=== PATIENT | female | born 1960 | race Caucasian/White ===

== ENCOUNTER 2016-04-09 06:54 | Day surgery (SDC) | payer BC ==
[2016-04-07 11:59] VITALS: BMI 43.2
[~2016-04-09 06:54] MED LIST: LACTATED RINGERS 1,000 ML IV SCH
[2016-04-09] MEDS ORDERED: LIDOCAINE 1% 20 ML VIAL (10MG/ML) FOR IV START INTRADERMA ONE (07:25)
[2016-04-09 07:26] VITALS: RESP 18; TEMP 98.1
[2016-04-09] MEDS ORDERED: DEXAMETHASONE SOD PHOS (MDV) 100 MG/10 ML VIAL ONE (08:19)
[2016-04-09] MEDS ORDERED: BUPIVACAINE (PF) 0.5% 30 ML VIAL ONE (08:19)
[2016-04-09] MEDS ORDERED: fentaNYL (PF) 50 MCG/ML 2 ML AMP ONE (08:19)
[2016-04-09] MEDS ORDERED: MIDAZOLAM 2 MG/2 ML VIAL ONE (08:19)
--- NOTE | 2016-04-09 08:54 | P.PCN ---
Date of Procedure: 04/09/16 Procedure(s) Performed: PREOPERATIVE DIAGNOSIS: 1-Cervical spondylosis with Facet Arthropathy without myelopathy. 2-cervical degenerative disc disease POSTOPERATIVE DIAGNOSIS:1- Cervical spondylosis with Facet Arthropathy without myelopathy. 2-cervical degenerative disc disease PROCEDURES: Radiofrequency thermocoagulation, left C3, C4, C5, medial branch with Fluroscopy [place] ANESTHESIA: Local with 1% lidocaine3 ml IV sedation with fentanyl 100 mcg and Versed. 4 mg EBL: Minimal PROCEDURE INDICATION: The patient with neck pain secondary to cervical arthropathy who had more than 50% relief of her pain with previous diagnostic cervical medial branch block. PROCEDURE DESCRIPTION / TECHNIQUE: The patient was seen and identified in the preoperative area. Risks, benefits, complications, and alternatives were discussed with the patient, the patient agreed to proceed with the procedure and signed the consent. IV was started. Vital signs remained stable throughout the procedure. Patient was taken to the OR and time out was completed. The patient was placed in the prone position on the procedure table. A pillow was placed under the patients chest to increase the cervical interlaminar space. The cervical area was prepped and draped in the usual sterile fashion. Critical pause was taken. Vital signs were closely monitored during the procedure. Conscious sedation was used during the procedure to decrease patients anxiety. Using cross-table lateral fluoroscopy, the centroid of the trapezoid of left C3 , C4, C5, were identified, marked, and localized with 1% lidocaine. Subsequently, a 20 -pm radiofrequency cannula with a 10-mm active tip was advanced guided by fluoroscopy to the centroid of the trapezoid of left C3 , C4, C5, . Needle tip position was confirmed at the centroid of the trapezoids of left C3, C4, C5 with anteroposterior fluoroscopy. Each site then underwent sensory testing at 50 Hz and 0 to 1 volt and motor testing at 2 Hz and 0 to 3 volt with local stimulation, but no radicular symptoms down the arm. Thereafter C3, C4,C5 and C6 sites underwent radiofrequency thermocoagulation at 80 degrees celsius for 90 seconds after injecting 0.5 ml of PF lidocaine 1%. After thermocoagulation, 1 ml of the block solution containing dexamethasone 10 mg and 5 mL of preservative-free Marcaine 0.5% was injected at the left C3, C4, C5, levels after negative aspiration of CSF and blood and with no paresthesias. Cannulas were retracted while injecting lidocaine 1% until the needle is out. Skin was cleansed and bandages were applied. COMPLICATIONS: No acute complications. COMMENTS: DISPOSITION / PLANS: The patient was placed in a supine position and transferred to the recovery area in a stable condition for observation and was discharged from the recovery room after meeting discharge criteria. Home discharge instructions given to the patient by the staff. The patient was reexamined prior to discharge. The patient will schedule a follow up in the clinic in 2-4 weeks.
[2016-04-09 09:28] VITALS: BP 108/58; PULSE 83
[2016-04-09] MEDS ORDERED: IV FLUID CONTINUATION 1,000 ML IV ONE (09:34)
--- NOTE | 2016-04-09 09:57 | FL ---
EXAMINATION TYPE: FL guided pain mgmt statistic DATE OF EXAM: 04/09/2016 8:50 AM HISTORY: Pain Fluoroscopy support supplied to the referring clinician. Intraoperative C-arm image documents the pro cedure. See dictated report from anesthesia, 17 seconds fluoroscopy time supplied
--- NOTE | 2016-04-29 09:39 | CDI ---
Pt Name: Chelsey Abraham CONFIDENTIAL MR#: [id number] Adm Date: 04/09/2016 6:54:00 AM Printed:04/29/2016 Physician Documentation Request Page 1 of 2 ICD-10-CM Ready Physicians Documentation Request Procedure performed radiofrequency thermocoagulation the left side C 3/ C4/ C5 under fluoroscopy guidance, a total of 3 levels performed Patient: Chelsey Abraham EPI: [id number] Account: [id number] Payer: [facility] Facility: [facility] Location: - Admit Date: 04/09/2016 6:54:00 AM Query Send By: Janet Oakley Phone #: Ext. Communication Date: 04/29/2016 9:29:00 AM Clarification Outpatient By submitting this query, we are merely seeking further clarification of documentation to accurately reflect all conditions that you are monitoring, evaluating, treating or that extend the hospitalization or utilize additional resources of care. Please utilize your independent clinical judgment when addressing the question(s) below. Dear Doctor Jose Licea, The patients Clinical Indicators include: SEE BELOW Documentation Clarification OP Dear. Dr. Licea, Please clarify the exact levels where this procedure was performed. In the title "Procedures" you state Radiofrequency Thermocoagulation, Left C3, C4 and C5. In the second paragraph of the report under Procedure Description it is stated that the procedure was performed on C3, C4, C5 and C6. PLEASE DOCUMENT CLARIFICATION AN ADDENDUM TO THE OPERATIVE REPORT. Thank you for your time, Janet Oakley, [facility] Outpatient Sales Project Coordinator [email or web address] PLEASE DOCUMENT ANY ADDITIONAL DIAGNOSES AND/OR SPECIFICITY IN THE PROGRESS NOTES AND/OR DISCHARGE SUMMARY. Agreed & documented Unable to determine/unknown Disagree with the above request Need to discuss MTDD
--- NOTE | 2016-05-06 13:25 | CDI ---
Dear. Dr. Licea, Thank you for your quick response to my query below. Unfortunately, the clarification needs to be documented as an addendum to the Procedure /OR report. I cannot code from documentation within the query itself only the chart documents. Thank you again for your time, Please clarify the exact levels where this procedure was performed. In the title "Procedures" you state Radiofrequency Thermocoagulation, Left C3, C4 and C5. In the second paragraph of the report unt Procedure Description it is stated that the procedure was performed on C3, C4, C5 and C6. PLEASE DOCUMENT CLARIFICATION AN ADDENDEUM TO THE OPERATIVE REPORT. Janet Oakley, [facility] Outpatient life sciences teacher [email or web address]
--- NOTE | 2016-05-07 13:42 | P.PN ---
Progress Note - Text Addendum to the procedure done in 04/09/2016= the procedure that was done this radiofrequency thermal coagulation on the left side cervical medial branch at C3 / C4/ C5 levels, (under fluoroscopy guidance ), total of 3 levels was performed
== END 2016-04-09 09:48 | disposition home or self-care (01) ==
LOC: ORPAIN 06:54
PROVIDERS: ATTEND Specialist
DX: M47.812 Spondylosis without myelopathy or radiculopathy, cervical region (principal); M50.30 Other cervical disc degeneration, unspecified cervical region; Z88.0 Allergy status to penicillin; Z88.2 Allergy status to sulfonamides; Z88.8 Allergy status to other drugs, medicaments and biological substances; Z91.041 Radiographic dye allergy status
CPT/HCPCS: 64633; 64634 ×2; J2250; J3010; J1100

== ENCOUNTER 2016-05-27 06:54 | Day surgery (SDC) | payer BC ==
[2016-05-25 11:51] VITALS: BMI 42.5
[2016-05-27 07:24] VITALS: RESP 16; TEMP 97.5
[2016-05-27] MEDS ORDERED: LACTATED RINGERS 1,000 ML IV SCH (07:45)
[2016-05-27] MEDS ORDERED: LIDOCAINE 1% 20 ML VIAL (10MG/ML) FOR IV START INTRADERMA ONE (08:03)
[2016-05-27] MEDS ORDERED: MIDAZOLAM 2 MG/2 ML VIAL ONE (08:08)
[2016-05-27] MEDS ORDERED: fentaNYL (PF) 50 MCG/ML 2 ML AMP ONE (08:08)
[2016-05-27] MEDS ORDERED: IV FLUID CONTINUATION 1,000 ML IV ONE (08:55)
--- NOTE | 2016-05-27 09:06 | P.PCN ---
Date of Procedure: 05/27/16 Surgeon: Yonatan Quiñonez Pathology: none sent Condition: stable Disposition: PACU Description of Procedure: PREOPERATIVE DIAGNOSIS: Cervical spondylosis without myelopathy and facet arthropathy. POSTOPERATIVE DIAGNOSIS: Cervical spondylosis without myelopathy and facet arthropathy. PROCEDURES: Radiofrequency thermocoagulation, C3-C4, C4-C5, C5-C6 medial branch , with fluoroscopic guidance, right side. ANESTHESIA: Local with 1% lidocaine; conscious sedation EBL: Minimal PROCEDURE INDICATION: The patient with neck pain secondary to cervical arthropathy who had more than 50% relief of her pain with previous diagnostic cervical medial branch block. No use of blood thinners. Patient has had right cervical RFA done already with relief. PROCEDURE DESCRIPTION / TECHNIQUE: The patient was seen and identified in the preoperative area. Risks, benefits, complications, and alternatives were discussed with the patient (with risks including but not limited to bleeding, infection, nerve damage, incomplete pain relief, and allergic reactions to medications), the patient agreed to proceed with the procedure and signed the informed consent after all questions were answered. IV was started. Vital signs remained stable throughout the procedure. Patient was taken to the OR and time out was completed. The patient was placed in the prone position on the procedure table. A pillow was placed under the patients chest to increase the cervical interlaminar space. The cervical area was prepped and draped in the usual sterile fashion. Critical pause was taken. Vital signs were closely monitored during the procedure. Conscious sedation was used during the procedure to decrease patients anxiety. Using cross-table lateral fluoroscopy, the centroid of the trapezoid of C3, C4, C5, C6 were identified, marked, and localized with 1% lidocaine. Subsequently , a 20 gauge 100-mm radiofrequency cannula with a 5-mm active tip was advanced guided by fluoroscopy to the centroid of the trapezoid of C3, C4, and C5. Needle tip position was confirmed at the centroid of the trapezoids of C3, C4, and C5 with anteroposterior fluoroscopy. Each site then underwent sensory testing at 50 Hz and 0 to 1 volt and motor testing at 2 Hz and 0 to 3 volt with local stimulation, but no radicular symptoms down the arm. Thereafter C3, C4, and C5 sites underwent radiofrequency thermocoagulation at 80 degrees celsius for 90 seconds after injecting 0.5 ml of PF lidocaine 1%. After thermocoagulation, 1 ml of the block solution containing Kenalog 40 mg and 2 mL of preservative-free normal saline was injected at the C3, C4, and C5 levels after negative aspiration of CSF and blood and with no paresthesias. Cannulas were retracted while injecting lidocaine 1% until the needle is out. Skin was cleansed and bandages were applied. COMPLICATIONS: No acute complications. COMMENTS: DISPOSITION / PLANS: The patient was placed in a supine position and transferred to the recovery area in a stable condition for observation and was discharged from the recovery room after meeting discharge criteria. Home discharge instructions given to the patient by the staff. The patient was reexamined prior to discharge and there were no issues. The patient will schedule a follow up in the clinic in approximately 4 weeks.
[2016-05-27 09:27] VITALS: BP 117/59; PULSE 85
--- NOTE | 2016-05-27 10:00 | FL ---
Fluoroscopy HISTORY: Pain 38 seconds fluoroscopy time supplied to the referring clinician. 2 intraoperative C-arm images docum ent the procedure. See dictated report from anesthesia.
== END 2016-05-27 09:41 | disposition home or self-care (01) ==
LOC: ORPAIN 06:54
PROVIDERS: ATTEND Anesthesiology
DX: G89.29 Other chronic pain (principal); M47.812 Spondylosis without myelopathy or radiculopathy, cervical region; M46.92 Unspecified inflammatory spondylopathy, cervical region; I10 Essential (primary) hypertension; E78.5 Hyperlipidemia, unspecified; F90.9 Attention-deficit hyperactivity disorder, unspecified type; F41.9 Anxiety disorder, unspecified; K21.9 Gastro-esophageal reflux disease without esophagitis
CPT/HCPCS: 64633; 64634 ×2; 99152; 99153; J2250; J3010

== ENCOUNTER → 2016-06-23 | Outpatient (CLI) | payer BC ==
[2016-06-23 14:24] VITALS: BP 156/82; PULSE 100; RESP 16; TEMP 98.5
--- NOTE | 2016-06-23 15:03 | P.CONS ---
History of Present Illness - Reason for Consult Consult date: 06/23/16 - Chief Complaint Low back pain radiating into both legs - History of Present Illness This pleasant 55-year-old female returns today to the [place] pain clinic for evaluation possible therapeutic intervention with regards to her chronic pain related complaints. She is interviewed and examined and the chart is reviewed in full with the patient's full consent. Mrs. Abraham'ellis most recently was treated here at [facility] for a series of cervical related injections ultimately resulting in radiofrequency rhizotomy of her cervical facet injections bilaterally. This injections did provide her with a significant amount of therapeutic benefit and she is quite pleased with the progress of her neck pain as far. She still continues to suffer from some degree of low back pain with radiation into both her legs, this is markedly worsened by prolonged periods of standing or walking. It was at this time I had a long and detailed discussion with Mrs. Abraham regarding a variety of therapeutic options available to her. I do believe that much of her low back symptomatology is due to degenerative disc disease and multiple level spinal stenosis. In this regard I do feel that a caudal epidural injection with fluoroscopic assistance would provide her with the greatest chance for therapeutic benefit. This procedure was described to her in great detail including a thorough expiration of all possible risks Occasions as well as the potential for significant therapeutic benefit. Both her and her were advised that no guarantees can be off with any type of treatment plan but I do feel this to be an appropriate and prudent next step in her treatment algorithm. 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, STATES ELEVATED LIVER ENZYMES DR JASMIN MESSER,CHRONIC PAIN History of Any Multi-Drug Resistant Organisms: None Reported Past Surgical History: Bariatric Surgery, Hernia Repair, Orthopedic Surgery, Tubal Ligation Additional Past Surgical History / Comment(s): gastric bypass, arthroscopic surgery bilateral knees with lateral ligament releases, umbilical hernia repair with mesh, PAIN CLINIC PROCEDURES Past Anesthesia/Blood Transfusion Reactions: Motion Sickness, Postoperative Nausea & Vomiting (PONV) Past Psychological History: Anxiety, Depression Smoking Status: Never smoker Past Alcohol Use History: Occasional Additional Past Alcohol Use History / Comment(s): States is not drinking alcohol on a daily basis at this time. Past Drug Use History: None Reported - Past Family History Mother Family Medical History: Cancer Additional Family Medical History / Comment(s): BOWEL AND LIVER, ARTHROSCLEROSIS TO CAROTID Medications and Allergies Home Medications Medication Instructions Recorded Confirmed Type Ascorbic Acid [Vitamin C] 500 mg PO BID 08/23/14 06/23/16 History Baclofen [Lioresal] 20 mg PO TID PRN 08/23/14 06/23/16 History Ca/D3/Mag/Zinc/Linette/Brad/Mgbor 1 each PO DAILY 08/23/14 06/23/16 History [Caltrate 600+D3+Min Chew Tab] Cetirizine HCl [Zyrtec] 10 mg PO DAILY 08/23/14 06/23/16 History Lisinopril [Zestril] 40 mg PO DAILY 08/23/14 06/23/16 History Methylphenidate HCl [Concerta] 54 mg PO DAILY 08/23/14 06/23/16 History Naproxen Sodium [Aleve] 440 mg PO Q12HR 08/23/14 06/23/16 History Omeprazole [PriLOSEC] 20 mg PO DAILY 08/23/14 06/23/16 History Vit No.124/Iron/FA 1 each PO DAILY 08/23/14 06/23/16 History [ Vitamin Tablet] Psyllium Husk 100% [Metamucil] 5 cap PO BID 08/23/14 06/23/16 History Zolpidem [Ambien] 10 mg PO HS 05/28/15 06/23/16 History amLODIPine [Norvasc] 5 mg PO DAILY 05/28/15 06/23/16 History Ipratropium/Albuterol Sulfate 1 puff INHALATION DAILY PRN 12/09/15 06/23/16 History [Combivent Respimat Inhaler] LORazepam [Ativan] 1 mg PO BID PRN 02/24/16 06/23/16 History L.acidoph,Paracasei, B.lactis 1 each PO DAILY 03/10/16 06/23/16 History [Probiotic] DULoxetine HCL [Cymbalta] 40 mg PO DAILY 06/23/16 06/23/16 History Allergies Allergy/AdvReac Type Severity Reaction Status Date / Time fluoxetine HCl [From Prozac] Allergy Nausea Verified 06/23/16 13:53 metoclopramide HCl Allergy dystonic Verified 06/23/16 13:53 [From Reglan] reaction, UNABLE TO FOCUS Penicillins Allergy Rash/Hives Verified 06/23/16 13:53 Sulfa (Sulfonamide Allergy Rash/Hives Verified 06/23/16 13:53 Antibiotics) atomoxetine HCl AdvReac Severe Dyspnea Verified 06/23/16 13:53 [From Strattera] IVP dye Allergy Rash/Hives Uncoded 06/23/16 13:53 Physical Exam Osteopathic Statement: *. No significant issues noted on an osteopathic structural exam other than those noted in the History and Physical/Consult. Vitals: Vital Signs Temp Pulse Resp BP Pulse Ox 06/23/16 14:11 98.5 F 100 16 156/82 97 Intake and Output 06/23/16 06/23/16 06/23/16 06:59 14:59 22:59 Other: Weight 108.862 kg Patient Weight 06/24/16 06:59 Weight 108.862 kg
== END | disposition home or self-care (01) ==
LOC: PNWHC3 13:31
PROVIDERS: ATTEND Anesthesiology
DX: G89.29 Other chronic pain (principal); M54.5 Low back pain; M79.605 Pain in left leg; M79.604 Pain in right leg; Z79.899 Other long term (current) drug therapy; Z88.8 Allergy status to other drugs, medicaments and biological substances; Z88.0 Allergy status to penicillin; Z88.2 Allergy status to sulfonamides; K21.9 Gastro-esophageal reflux disease without esophagitis; I10 Essential (primary) hypertension; M19.90 Unspecified osteoarthritis, unspecified site; F41.9 Anxiety disorder, unspecified; F32.9 Major depressive disorder, single episode, unspecified
CPT/HCPCS: 99211

== ENCOUNTER 2016-07-27 06:59 | Day surgery (SDC) | payer BC ==
[2016-07-26 11:24] VITALS: BMI 43.0
[2016-07-27 07:31] VITALS: TEMP 97.8
[2016-07-27] MEDS ORDERED: LACTATED RINGERS 1,000 ML IV SCH (07:45)
[2016-07-27] MEDS ORDERED: fentaNYL (PF) 50 MCG/ML 2 ML AMP ONE (08:13)
[2016-07-27] MEDS ORDERED: TRIAMCINOLONE ACETONIDE 40 MG/ML 1 ML VIAL ONE (08:13)
[2016-07-27] MEDS ORDERED: MIDAZOLAM 2 MG/2 ML VIAL ONE (08:13)
--- NOTE | 2016-07-27 08:38 | P.PCN ---
Date of Procedure: 07/27/16 Surgeon: Yonatan Quiñonez Pathology: none sent Condition: stable Disposition: PACU Description of Procedure: PREOPERATIVE DIAGNOSIS: Lumbar post laminectomy syndrome. POSTOPERATIVE DIAGNOSIS: Lumbar post laminectomy syndrome. PROCEDURE: 1. Caudal epidural steroid injection under fluoroscopic guidance. ANESTHESIA: Local with 1% lidocaine; IV sedation EBL: None. PROCEDURE INDICATION: This is a patient with postlaminectomy syndrome with uncontrolled pain who presents for caudal PALMIRA today. No use of blood thinners. PROCEDURE DESCRIPTION: The patient was seen and identified in the preoperative area. Risks, benefits, complications, and alternatives were discussed with the patient including but not limited to bleeding, infection, nerve damage, incomplete pain relief, and allergic reactions to medications. The patient agreed to proceed with the procedure and signed the consent. IV was started, and vital signs were stable. Patient was taken to the OR and time out was completed. The patient was placed in the prone position on procedure table and a pillow was placed under the abdomen to reduce lumbar lordosis. The lumbosacral area was prepped and draped in the usual sterile fashion. Vital signs were closely monitored during the procedure. Using lateral fluoroscopy the anterior-posterior plates of the sacrum were identified and the skin and deeper tissues corresponding into sacrococcygeal ligament were anesthetized using approximately 3 mL of 1% lidocaine. Then under fluoroscopy, a 3-1/2-inch 20-gauge Tuohy epidural needle was guided through the sacrococcygeal ligament, and into the epidural space. No dye was injected secondary to contrast allergy. After negative aspiration and confirmation of needle placement in the AP view, and with no paresthesias, a solution containing Kenalog 80mg, 2ml of 1% preservative free lidocaine with 7 ml of preservative free normal saline (total of 10 ml) solution was injected with washout of epidurogram. Needle was withdrawn intact. Skin was cleansed, and bandage was applied. COMPLICATIONS: None. COMMENTS: DISPOSITION / PLANS: The patient was placed in a supine position and transferred to the recovery area in a stable condition for observation and was discharged from the recovery room after meeting discharge criteria. Home discharge instructions given to the patient by the staff. The patient was reexamined prior to discharge. The patient already has a scheduled follow-up in three weeks. At that visit, we will discuss repeat caudal PALMIRA vs. repeat left cervical RFA.
[2016-07-27 09:00] VITALS: RESP 18
[2016-07-27 09:22] VITALS: BP 114/70; PULSE 80
[2016-07-27] MEDS ORDERED: IV FLUID CONTINUATION 1,000 ML IV ONE (09:22)
--- NOTE | 2016-07-27 16:01 | FL ---
Fluoroscopy HISTORY: Pain 4 seconds fluoroscopy time supplied to the referring clinician. 2 intraoperative C-arm images docume nt the procedure. See dictated report from anesthesia.
== END 2016-07-27 09:40 | disposition home or self-care (01) ==
LOC: ORPAIN 06:59
PROVIDERS: ATTEND Anesthesiology
DX: M96.1 Postlaminectomy syndrome, not elsewhere classified (principal); Z91.041 Radiographic dye allergy status; Z91.09 Other allergy status, other than to drugs and biological substances
CPT/HCPCS: 62323; J2250; J3301; J3010

== ENCOUNTER → 2016-08-18 | Outpatient (CLI) | payer BC ==
[2016-08-18 13:37] VITALS: BP 142/84; PULSE 104; RESP 18; TEMP 98.1
--- NOTE | 2016-08-18 13:57 | P.PN ---
Subjective Principal diagnosis: This is follow-up visit for this patient with a history of severe and chronic low back pain secondary to postlaminectomy pain syndrome, and neck pain secondary to cervical spondylosis, we have done interventional pain management injection,, diagnostic medial branch block cervical area, RFA of the medial branches cervical area, her neck pain improved but she is currently complaining of some muscle spasm in the cervical area which is not controlled with the current muscle relaxant she is taking, she takes baclofen 20 mg every 8 hours, and we have done the caudal epidural steroid injection which helped her low back pain and is currently on pain medications [place] 7.5/325 every 6 hours Patient denies any side effects of the medication, denies excessive drowsiness or sleepiness, denies suicidal ideation, and reports that the current pain medication is NOT helping To control the pain and improve activity of daily living Patient denies any motor or sensory deficit , patient denies any fever or night sweats, denies any change in the bowel movements or urination Physical Examinations : 1-Constitutiona : Cooperative , not in acute distress . 2-HEENT : nech ; supple , no Lymphadenopathy , no Thyromegaly , normal thyroid size . eyes : no ptosis , no icterus, no photophobia . ENT : normal of hearing , normal oropharynx , no Thrush . 3- Respiratory : Chest clear to auscultations Bilaterally , no wheezing , no Rhonchi . 4- Cardiovascular : regular rate and rhythem , S1 , S2 , no S3 , no S4. 5- Gastrointestinal : abdomen soft no tenderness , bowel sounds positive all four quadrents , no organomegally . 6- Genitourinary : Defferred . 7- neurologic : Cranial nerve II to XII intact , no focal neurological deffecit . 8-psychatric : alert , oriented X 3 , appropriate affect , intact judgment and insight . 9-Lymphatic : no Lymphadenopathy . 10- musculoskeltal : exams of the cervical spine = motor strength normal bilateral upper extremities facet loading test cervical area positive. Multiple trigger point identified in the cervical paravertebral muscles exams of the Lumber spine = motor strength lower extremities ,thigh and legs .5/5 deep tendon reflexes : normal Knee Jerk , normal ankle Jerk . lumber facet Loading Test positive strait leg raising test positive at 30 degree , RT ,LT , Fabere test positive RT and positive LT . 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 Chronic neck pain secondary to cervical spondylosis, with facet arthropathy without myelopathy, and myofascial pain syndrome and cervical area - chronic and current use of high-risk medication (Opioids). The patient was counseled about risk of opioid use, psychological risk associated with opioids and was orally counseled to not overuse , divert,or sell dictations to take medications as prescribed only , and to restore medication in safe location , and the patient counseled against driving while using narcotic medications, and also not to use alcohol or any illicit recreational drugs, the patient's verbalized understanding that the lack of compliance will result in failure to renew narcotic prescription and possible discharge from the clinic Prescription refill for [place] 7.5/325 every 6 hours dispense 120 with one refill, discontinue baclofen and we'll start patient on Zanaflex 6 mg every 6 hours dispense 120 with one refill and patient will be scheduled for caudal epidural steroid injections in the next few weeks Objective - Vital Signs Vital signs: Vital Signs Temp 98.1 F 08/18/16 13:24 Pulse 104 H 08/18/16 13:24 Resp 18 08/18/16 13:24 BP 142/84 08/18/16 13:24 Pulse Ox Intake & Output 08/17/16 08/18/16 08/18/16 18:59 06:59 18:59 Weight 110.223 kg
== END | disposition home or self-care (01) ==
LOC: PNWHC3 12:52
PROVIDERS: ATTEND Specialist
DX: M47.812 Spondylosis without myelopathy or radiculopathy, cervical region (principal); M46.92 Unspecified inflammatory spondylopathy, cervical region; M54.5 Low back pain; M79.1 Myalgia; G89.29 Other chronic pain; M96.1 Postlaminectomy syndrome, not elsewhere classified; Z79.891 Long term (current) use of opiate analgesic
CPT/HCPCS: 99211

== ENCOUNTER 2016-08-30 08:37 | Day surgery (SDC) | payer BC ==
[2016-08-26 16:03] VITALS: BMI 43.0
[2016-08-30 08:53] VITALS: RESP 16; TEMP 98.2
[2016-08-30] MEDS ORDERED: LIDOCAINE 1% 20 ML VIAL (10MG/ML) FOR IV START INTRADERMA ONE (09:06)
[2016-08-30] MEDS ORDERED: fentaNYL (PF) 50 MCG/ML 2 ML AMP ONE (09:46)
[2016-08-30] MEDS ORDERED: DEXAMETHASONE SOD PHOS (MDV) 100 MG/10 ML VIAL ONE (09:46)
[2016-08-30] MEDS ORDERED: MIDAZOLAM 2 MG/2 ML VIAL ONE (09:46)
--- NOTE | 2016-08-30 10:12 | FL ---
FLUOROSCOPY 11 seconds of fluoroscopy time were utilized during Pain Injection. 2 images document the procedure.
--- NOTE | 2016-08-30 10:13 | P.PCN ---
Date of Procedure: 08/30/16 Preoperative Diagnosis: Postoperative Diagnosis: Procedure(s) Performed: Implants: Surgeon: Yonatan Quiñonez Pathology: none sent Condition: stable Disposition: PACU Indications for Procedure: Operative Findings: Description of Procedure: PREOPERATIVE DIAGNOSIS: Lumbar post laminectomy syndrome. POSTOPERATIVE DIAGNOSIS: Lumbar post laminectomy syndrome. PROCEDURE: 1. Caudal epidural steroid injection under fluoroscopic guidance. ANESTHESIA: Local with 1% lidocaine; IV sedation EBL: None. PROCEDURE INDICATION: This is a patient with postlaminectomy syndrome with uncontrolled pain who presents for caudal PALMIRA today with 2-3 weeks' relief from previous procedure. No use of blood thinners. PROCEDURE DESCRIPTION: The patient was seen and identified in the preoperative area. Risks, benefits, complications, and alternatives were discussed with the patient including but not limited to bleeding, infection, nerve damage, incomplete pain relief, and allergic reactions to medications. The patient agreed to proceed with the procedure and signed the consent. IV was started, and vital signs were stable. Patient was taken to the OR and time out was completed. The patient was placed in the prone position on procedure table and a pillow was placed under the abdomen to reduce lumbar lordosis. The lumbosacral area was prepped and draped in the usual sterile fashion. Vital signs were closely monitored during the procedure. Using lateral fluoroscopy the anterior-posterior plates of the sacrum were identified and the skin and deeper tissues corresponding into sacrococcygeal ligament were anesthetized using approximately 3 mL of 1% lidocaine. Then under fluoroscopy, a 3-1/2-inch 20-gauge 3.5-inch Tuohy epidural needle was guided through the sacrococcygeal ligament, and into the epidural space. No dye was injected secondary to contrast allergy. After negative aspiration and confirmation of needle placement in the AP view, and with no paresthesias, a solution containing Decadron 20 mg, 2ml of 1% preservative free lidocaine with 7 ml of preservative free normal saline (total of 10 ml) solution was injected with washout of epidurogram. Needle was withdrawn intact. Skin was cleansed, and bandage was applied. COMPLICATIONS: None. COMMENTS: DISPOSITION / PLANS: The patient was placed in a supine position and transferred to the recovery area in a stable condition for observation and was discharged from the recovery room after meeting discharge criteria. Home discharge instructions given to the patient by the staff. The patient was reexamined prior to discharge and already noted relief. She will return for third injection (caudal PALMIRA) in 4-6 weeks.
[2016-08-30 10:32] VITALS: BP 112/71; PULSE 91
== END 2016-08-30 10:52 | disposition home or self-care (01) ==
LOC: ORPAIN 08:37
PROVIDERS: ATTEND Anesthesiology
DX: G89.29 Other chronic pain (principal); M96.1 Postlaminectomy syndrome, not elsewhere classified; M47.812 Spondylosis without myelopathy or radiculopathy, cervical region; M46.92 Unspecified inflammatory spondylopathy, cervical region; M79.1 Myalgia; Z79.891 Long term (current) use of opiate analgesic
CPT/HCPCS: 62323; J2250; J3010; J1100

== ENCOUNTER 2016-09-30 10:00 | Day surgery (SDC) | payer BC ==
[2016-09-24 12:29] VITALS: BMI 43.0
[~2016-09-30 10:00] MED LIST changes: +LACTATED RINGERS 1,000 ML IV ONE; -LACTATED RINGERS 1,000 ML IV SCH
[2016-09-30] MEDS ORDERED: LIDOCAINE 1% 20 ML VIAL (10MG/ML) FOR IV START INTRADERMA ONE (10:31)
[2016-09-30 10:34] VITALS: TEMP 98.2
[2016-09-30] MEDS ORDERED: fentaNYL (PF) 50 MCG/ML 2 ML AMP ONE (11:36)
[2016-09-30] MEDS ORDERED: DEXAMETHASONE SOD PHOS (MDV) 100 MG/10 ML VIAL ONE (11:36)
[2016-09-30] MEDS ORDERED: MIDAZOLAM 2 MG/2 ML VIAL ONE (11:36)
--- NOTE | 2016-09-30 11:59 | P.PCN ---
Date of Procedure: 09/30/16 Preoperative Diagnosis: Postoperative Diagnosis: Procedure(s) Performed: PREOPERATIVE DIAGNOSIS: 1- Lumbar Degenerative Disc Diseases 2-Lumbar spondylosis with Facet arthropathy without myelopathy POSTOPERATIVE DIAGNOSIS: 1-Lumber Degenerative Disc Diseases 2-Lumbar spondylosis with Facet arthropathy without myelopathy PROCEDURE 1. Lumbar epidural steroid injection under fluoroscopic guidance at the L5-S1 level. ANESTHESIA: Local with 1% lidocaine 3 ml and IV sedation with Versed 2 mg , and fentanyle 100 Mcg EBL: Minimal PROCEDURE INDICATION: The patient with low back pain and radiculitis symptoms unresponsive to conservative treatment. Fluoroscopy was used to optimize visualization of the needle placement and to maximize safety. PROCEDURE DESCRIPTION / TECHNIQUE: The patient was seen and identified in the preoperative area. Risks, benefits , complications including but not limited to infections ,bleeding ,allergic reaction to the medications ,nerve damage and not complete pain releife , and alternatives were discussed with the patient. The patient agreed to proceed with the procedure and signed the consent. IV was started, and vital signs were stable. Patient was taken to the OR and time out was completed. The patient was placed in the prone position on procedure table and a pillow was placed under the abdomen to reduce lumbar lordosis. The lumbosacral area was prepped and draped in the usual sterile fashion.ere closely monitored during the procedure. Conscious sedation was used during the procedure to decrease patients anxiety. Vital signs was monitered during the entire procedure. Using anterior-posterior fluoroscopy, the L5-S1 interlaminar space was identified and the skin over this site was marked and then infiltrated with 1% lidocaine subcutaneously. Subsequently, a 20-gauge Tuohy epidural needle was inserted and advanced toward the epidural space using the ``Loss of resistance technique and guided by AP and lateral fluoroscopy, after negative aspiration for blood and CSF and in the absence of paresthesias. Again after negative aspiration, a 6 ml mixture containing 20 mg of Dexamethasone and 2 ml of preservative free Normal Saline. Needle was withdrawn intact, skin was cleansed , and bandages were applied. COMPLICATIONS: None DISPOSITION / PLANS: The patient was placed in a supine position and transferred to the recovery area in a stable condition for observation. There was no evidence of lower extremity motor or sensory deficit after the procedure. Patient was discharged from the recovery room after meeting discharge criteria. Home discharge instructions were given to the patient by the staff. The patient was reexamined prior to discharge. The patient will schedule a follow up in the clinic in 2-4 weeks. Implants: Indications for Procedure: Operative Findings: Description of Procedure:
[2016-09-30] MEDS ORDERED: IV FLUID CONTINUATION 1,000 ML IV ONE (12:01)
[2016-09-30 12:04] VITALS: RESP 18
[2016-09-30 12:34] VITALS: BP 136/83; PULSE 103
--- NOTE | 2016-09-30 12:50 | FL ---
EXAMINATION TYPE: FL guided pain mgmt statistic DATE OF EXAM: 09/30/2016 HISTORY: Flouroscopy time 12 seconds of fluoroscopy provided. IMPRESSION: 1. Fluoroscopy time.
== END 2016-09-30 12:45 | disposition home or self-care (01) ==
LOC: ORPAIN 10:00
PROVIDERS: ATTEND Specialist
DX: M51.16 Intervertebral disc disorders with radiculopathy, lumbar region (principal); M47.26 Other spondylosis with radiculopathy, lumbar region; M46.96 Unspecified inflammatory spondylopathy, lumbar region; Z88.0 Allergy status to penicillin; Z88.2 Allergy status to sulfonamides; Z88.8 Allergy status to other drugs, medicaments and biological substances; Z91.041 Radiographic dye allergy status
CPT/HCPCS: 62323; J2250; J3010; J1100

== ENCOUNTER → 2016-10-13 | Outpatient (CLI) | payer BC ==
--- NOTE | 2016-10-13 12:28 | P.PN ---
Progress Note - Text Patient returns for followup for chronic neck pain with radiation to arms and low back pain. Patient underwent cervical RFA in February with good results on R side but poor results on L side. Patient continues on Winnett and baclofen medications for pain with good relief and has stopped using Zanaflex. Patient denies adverse drug effects from medications. Today, pt denies new-onset weakness, bowel/bladder incontinence, or any other signs or symptoms of cauda equina syndrome. There are no signs of acute intoxication, and no indications of medication diversion or overuse. In addition to above, 13-point review of systems is also negative for chest pain , shortness of breath, changes in vision, changes in hearing, new onset weakness , abdominal pain, diarrhea, extreme fatigue, malaise, fever, skin changes, homicidal or suicidal ideation, or bowel or bladder incontinence. Vital Signs: Reviewed in EMR Gen: WDWN, AAOx3, NAD HEENT: NCAT, EOMI, hearing grossly normal Pulm: resp unlabored Abd: soft, NT, ND Neck: supple, trachea midline Facet loading: ++ bilateral SIJ tenderness: + bilateral Neuro: CN II-XII grossly intact, muscle strength lower extremities PRESERVED Imaging: Reviewed in EMR Assessment: 1. cervical spondylosis without myelopathy 2. cervical radiculopathy 3. chronic pain syndrome 4. lumbar spondylosis without myelopathy Plan: 1. Explanation: Opioid and psychological risk scores were reviewed. Diagnoses , prognoses, and multiple treatment options including but not limited to physical therapy, interventional therapies, adjuvant medical therapies, narcotic medication therapies, and surgery were discussed with the patient and all questions were answered to the patient's satisfaction. 2. Opioid agreement: Patient has previously signed narcotic agreement, and was orally counseled to not overuse, abuse, divert, or cell medications, and to take them as prescribed by only 1 healthcare provider. The patient was also counseled to store opioid medications in a safe and preferably locked location. Patient was also counseled against driving while using narcotic medications and also to not use alcohol or any illicit or recreational drugs. The patient verbalized understanding that lack of compliance with any of the above and likely result in failure to renew narcotic prescriptions, possible discharge from the clinic, and possible legal ramifications thereafter if indicated. 3. Counseling: The patient was counseled extensively on BODY MASS INDEX, EXERCISE. Specifically, the patient was instructed regarding the importance of obesity, and exercise in the context of both chronic pain and overall health. 4. Procedures: bilateral lumbar MBB 5. Consultations: None 6. Investigations: 7. Medications: Winnett changed from 7.5 QID to 10 mg TID #90 x 2 months 8. Disposition: f/u for procedure as scheduled PQRS measures: 1-Patient's medications are documented in the chart. 2-Tobacco use is negative. 3-Patient has not had a pneumococcal vaccine. 4-Advanced care planning discussed, patient unable to give. 5-Opioid contract signed with the patient. 6-Pain positive, follow-up visit or procedure scheduled 7-Patient's blood pressure measured and documented, and patient will follow up with the primary care due to hypertension. 8-Patient's weight was measured, and body mass index ABOVE the normal limits, and counseling was done. Patient instructed to follow up with PCP. 9-Patient WAS NOT identified as an unhealthy alcohol user.
[2016-10-13 12:39] VITALS: BP 103/72; PULSE 102; RESP 18; TEMP 97.8
== END ==
LOC: PNWHC3 11:42
PROVIDERS: ATTEND Anesthesiology
DX: M47.22 Other spondylosis with radiculopathy, cervical region (principal)
CPT/HCPCS: 99211

== ENCOUNTER → 2016-11-03 | Outpatient (CLI) | payer BC ==
--- NOTE | 2016-11-04 09:46 | MM ---
Reason for exam: screening (asymptomatic). History: Patient is postmenopausal. Took hormonal contraceptives for 8 years. Took estrogen for 4 years. Physical Findings: A clinical breast exam by your physician is recommended on an annual basis and results should be correlated with mammographic findings. MG 3D Screening Mammo W/Cad Bilateral CC and MLO view(s) were taken. The breast tissue is almost entirely fat. There is no discrete abnormality. No significant changes when compared with prior studies. ASSESSMENT: Negative, BI-RAD 1 RECOMMENDATION: Routine screening mammogram of both breasts in 1 year.
== END | disposition home or self-care (01) ==
LOC: RADMAMWWP 09:47
PROVIDERS: ATTEND Family Medicine
DX: Z12.31 Encounter for screening mammogram for malignant neoplasm of breast (principal)
CPT/HCPCS: 77063; G0202

== ENCOUNTER 2016-11-16 07:59 | Day surgery (SDC) | payer BC ==
[2016-11-03 15:20] VITALS: BMI 42.0
[~2016-11-16 07:59] MED LIST changes: -LACTATED RINGERS 1,000 ML IV ONE; +LACTATED RINGERS 1,000 ML IV SCH
[2016-11-16 08:45] VITALS: RESP 16; TEMP 98
[2016-11-16] MEDS ORDERED: LIDOCAINE 1% 20 ML VIAL (10MG/ML) FOR IV START INTRADERMA ONE (08:57)
--- NOTE | 2016-11-16 09:53 | P.PCN ---
Date of Procedure: 11/16/16 Preoperative Diagnosis: Postoperative Diagnosis: Procedure(s) Performed: PREOPERATIVE DIAGNOSIS : 1- Lumbar spondylosis with Facet Arthropathy without myelopathy . 2- Lumber degenerative disc disease POSTOPERATIVE DIAGNOSIS: 1- Lumbar spondylosis with Facet Arthropathy without myelopathy . 2- Lumber degenerative disc disease PROCEDURE: Diagnostic bilateral L3 -4 , L4 -5 , and L5-S1 medial branch block under fluoroscopy ANESTHESIA: Local with 1% lidocaine 6 ml ; IV sedation with Versed 2 mg and Fentanyl 100 mcg. EBL: Minimal COMPLICATION: None. IV FLUIDS: 100 mL of normal saline. PROCEDURE INDICATION: Chronic low back pain secondary to Facet arthropathy unresponsive to conservative treatment. PROCEDURE DESCRIPTION: the patient was seen and identified in the preop holding area , risks and benefits and possible complications of the procedure and alternative were discussed with the patient, and the patient agreed to proceed with the procedure and signed the consent IV was started and vital signs monitored during the procedure and fluoroscopy was used to maximize the benefit and accuracy of the needle placement, and sedation was given to decrease patient anxiety, patient was taken to the procedure room and placed in prone position vital signs monitored in the back prepped with chlorhexidine X3 then under strict sterile technique using a right oblique fluoroscopy ,the junction of the transverse process and the superior articulating process of the right L3- 4 , L4- 5, and L5-S1 vertebra which corresponding to the fluoroscopy image of the eye of the Aime dog on the block side for the medial branches and subsequently , after local infiltration of skin and subcu tissuies with lidocaine 1% one mL at each level ,then 22- gauge 5 inches Quincke-type needles , 3 needle was used , each one of them placed at the junction of the base of the transverse process and the superior articular process at the appropriate level, and the needle was advanced until the periosteum contacted, needle placement confirmed with AP oblique and lateral view and after appropriate needle placement confirmed, and after negative aspiration for heme and CSF and there was no paresthesia 1-1/2 mL of Marcaine 0.5% mixed with 10 mg dexamethasone , then half mL injected at each level after negative aspiration the needle subsequently removed and the same procedure repeated for the left side at left side at L3-4, L4- 5 and L5-S1 levels. At the end of the procedure and the needles removed and a bandage applied after the skin was cleaned the cleaning solution patient taken to recovery room in stable condition and monitors in the recovery room for 20-30 minutes and discharged home in stable condition after discharge criteria met and patient will follow up with the pain clinic in 2-4 weeks Implants: Indications for Procedure: Operative Findings: Description of Procedure:
[2016-11-16] MEDS ORDERED: IV FLUID CONTINUATION 1,000 ML IV ONE ×2 (10:06)
--- NOTE | 2016-11-16 10:36 | FL ---
Fluoroscopy HISTORY: Pain 21 seconds fluoroscopy time supplied to the referring clinician. 4 intraoperative C-arm images docum ent the procedure. See dictated report from anesthesia.
[2016-11-16 10:37] VITALS: BP 110/70; PULSE 93
== END 2016-11-16 10:49 | disposition home or self-care (01) ==
LOC: ORPAIN 07:59
PROVIDERS: ATTEND Specialist
DX: M47.816 Spondylosis without myelopathy or radiculopathy, lumbar region (principal); M46.96 Unspecified inflammatory spondylopathy, lumbar region; M51.36 Other intervertebral disc degeneration, lumbar region; I10 Essential (primary) hypertension; Z88.2 Allergy status to sulfonamides; Z88.8 Allergy status to other drugs, medicaments and biological substances; Z91.041 Radiographic dye allergy status
CPT/HCPCS: 64493; 64494; 64495; 99152; J2250; J1100; J3010; 99153

== ENCOUNTER 2016-12-07 06:23 | Day surgery (SDC) | payer BC ==
[2016-12-06 11:55] VITALS: BMI 43.7
[2016-12-07 06:50] VITALS: TEMP 98.5
[2016-12-07] MEDS ORDERED: LACTATED RINGERS 1,000 ML IV ONE (06:50)
[2016-12-07] MEDS ORDERED: LIDOCAINE 1% 20 ML VIAL (10MG/ML) FOR IV START INTRADERMA ONE (06:51)
[2016-12-07] MEDS ORDERED: LACTATED RINGERS 1,000 ML IV SCH (07:15)
--- NOTE | 2016-12-07 07:30 | P.PCN ---
Date of Procedure: 12/07/16 Preoperative Diagnosis: Postoperative Diagnosis: Procedure(s) Performed: Implants: Surgeon: Yonatan Quiñonez Pathology: none sent Condition: stable Disposition: PACU Indications for Procedure: Operative Findings: Description of Procedure: PREOPERATIVE DIAGNOSIS: L3-L4, L4-L5, and L5-S1 spondylosis without myelopathy and facet arthropathy. POSTOPERATIVE DIAGNOSIS: L3-L4, L4-L5, and L5-S1 spondylosis without myelopathy and facet arthropathy. PROCEDURE DESCRIPTION: Patient presents for L3-L4, L4-L5 and L5-S1 diagnostic medial branch blocks under fluoroscopic guidance. The procedure is performed using fluoroscopic guidance during needle placement to assure proper position and maximize safety. ANESTHESIA: Local with 1% lidocaine; conscious sedation EBL: Minimal PROCEDURE INDICATION: Patient with lumbar facet arthropathy signs and symptoms, here for diagnostic medial branch block. Pt does not take any blood thinning medications. LMBB #2 today after two weeks' relief from first MBB. PROCEDURE DESCRIPTION: The patient was seen and identified in the preoperative area. Risks, benefits, complications, and alternatives were discussed with the patient (including but not limited to incomplete pain relief, bleeding, infection, nerve damage, and allergies to medications), the patient agreed to proceed with the procedure and signed the consent after all questions were answered. Patient was taken to the OR and time out was completed to verify proper patient, position, laterality of pain, and allergies. Pt was placed in the prone position and a pillow was placed under the abdomen to reduce lumbar lordosis. The lumbosacral area was prepped and draped in the usual sterile fashion. Using oblique fluoroscopy, the eye of the "Aime dog" of right L4 vertebral body, which corresponds to the path of the medial branch originating from the level above, which is L3 in this case, was identified. Subsequently, a 22-gauge 3.5-inch spinal needle was inserted under fluoroscopic guidance toward the eye of the "Aime dog" of the right L4 vertebral body, corresponding to the junction of the superior articular process and the transverse process of the pedicle of the same level. After needle tip confirmation on lateral view and after negative aspiration for CSF and blood and without paresthesias, 1 mL of a 6 ml solution of 0.5% preservative-free bupivacaine and 40 mg Kenalog was injected. Subsequently the needle was withdrawn intact and the same procedure was repeated for the right L4, right L5, left L3, left L4, and left L5 medial branches which together with right L3 medial branch correspond to the sensory innervation of the bilateral L3-L4, L4-L5, and L5-S1 facet joints. Needle was withdrawn intact after each injection. At the end of the procedure, the skin was cleansed and bandages were applied. COMPLICATIONS: None. DISPOSITION/PLAN: The patient taken to the recovery area after the procedure in a stable condition for observation. Patient was reexamined prior to discharge and there were no issues. Patient was discharged home, accompanied by an adult, after meeting discharged criteria. Discharge instructions were give to the patient by the staff. Patient was specifically instructed not to drive today and to rest for the rest of the day. Patient will follow up for lumbar RFA at next visit.
[2016-12-07 08:03] VITALS: BP 119/66; PULSE 90; RESP 18
[2016-12-07] MEDS ORDERED: IV FLUID CONTINUATION 1,000 ML IV ONE (08:04)
--- NOTE | 2016-12-07 10:50 | FL ---
Fluoroscopy HISTORY: Pain 13 seconds fluoroscopy time supplied to the referring clinician. 4 intraoperative C-arm images docum ent the procedure. See dictated report from anesthesia.
== END 2016-12-07 08:18 | disposition home or self-care (01) ==
LOC: ORPAIN 06:23
PROVIDERS: ATTEND Anesthesiology
DX: M47.816 Spondylosis without myelopathy or radiculopathy, lumbar region (principal); M47.817 Spondylosis without myelopathy or radiculopathy, lumbosacral region; M46.96 Unspecified inflammatory spondylopathy, lumbar region; M46.97 Unspecified inflammatory spondylopathy, lumbosacral region; I10 Essential (primary) hypertension; K21.9 Gastro-esophageal reflux disease without esophagitis; Z88.2 Allergy status to sulfonamides; Z88.8 Allergy status to other drugs, medicaments and biological substances; Z91.041 Radiographic dye allergy status; Z88.0 Allergy status to penicillin
CPT/HCPCS: 64493; 64494; 64495; 99152; J2250; J3301

== ENCOUNTER → 2017-02-14 | Day surgery (SDC) | payer BC ==
[2017-02-09 13:17] VITALS: BMI 43.4
[~2017-02-14] MED LIST changes: +LACTATED RINGERS 1,000 ML IV ONE; -LACTATED RINGERS 1,000 ML IV SCH
== END ==
LOC: ORPAIN 07:09
PROVIDERS: ATTEND Anesthesiology
DX: M48.02 Spinal stenosis, cervical region (principal); Z53.9 Procedure and treatment not carried out, unspecified reason

== ENCOUNTER 2017-03-30 07:29 | Day surgery (SDC) | payer BC ==
[2017-03-25 14:24] VITALS: BMI 42.5
[2017-03-30] MEDS ORDERED: LACTATED RINGERS 1,000 ML IV ONE (07:57)
[2017-03-30] MEDS ORDERED: LACTATED RINGERS 1,000 ML IV SCH (08:30)
--- NOTE | 2017-03-30 09:08 | FL ---
EXAMINATION TYPE: FL guided pain mgmt statistic DATE OF EXAM: 03/30/2017 HISTORY: Flouroscopy time 25 seconds of fluoroscopy provided. IMPRESSION: 1. Fluoroscopy time.
--- NOTE | 2017-03-30 10:30 | P.PCN ---
Date of Procedure: 03/30/17 Surgeon: Yonatan Quiñonez Pathology: none sent Condition: stable Disposition: PACU Description of Procedure: PREOPERATIVE DIAGNOSIS: Lumbar spondylosis without myelopathy and facet arthropathy POSTOPERATIVE DIAGNOSIS: Lumbar spondylosis without myelopathy and facet arthropathy PROCEDURES: Right Radiofrequency thermocoagulation, L3-L4, L4-L5, and L5-S1 medial branch, with fluoroscopic guidance. ANESTHESIA: 1% lidocaine plain; Conscious sedation with versed/fentanyl EBL: Minimal PROCEDURE INDICATION: The patient with low back pain secondary to lumbar arthropathy who had more than 50% relief of pain with previous diagnostic lumbar medial branch block with bupivacaine x2. Patient presents for right lumbar RFA today; no use of blood thinners. PROCEDURE DESCRIPTION / TECHNIQUE: The patient was seen and identified in the preoperative area. Risks, benefits, complications, and alternatives were discussed with the patient (including but not limited to incomplete pain relief , bleeding, infection, nerve damage, and allergies to medications), the patient agreed to proceed with the procedure and signed the consent after all questions were answered. Patient was taken to the OR and time out was completed to verify proper patient , position, laterality of pain, and allergies. Pt was placed in the prone position. IV was started. Vital signs remained stable throughout the procedure. A pillow was placed under the patients chest to decrease lordosis. The lumbosacral area was prepped and draped in the usual sterile fashion. Vital signs were closely monitored during the procedure. Conscious sedation was used during the procedure to decrease patients anxiety. Using AP and then oblique fluoroscopy, the eye of the Aiem dog corresponding to the connection between the superior and transverse articular processes of right L3, L4, L5 and top of the sacrum were identified, marked, and localized with 1% lidocaine. Subsequently, a 18 gauge, 100-mm radiofrequency cannula with a 10-mm active tip was advanced guided by fluoroscopy to each of the eyes of the Aime dog at the levels of all four medial branches. Each site then underwent sensory testing at 50 Hz and 0 to 1 volt and motor testing at 2 Hz and 0 to 3 volt with local stimulation, but no radicular symptoms down the legs. Thereafter all four medial branch sites underwent radiofrequency thermocoagulation at 80 degrees Celsius for 90 seconds after injecting 0.5 ml of PF lidocaine 1%. After thermocoagulation, 1 ml of the block solution containing Kenalog 40 mg and 2 mL of preservative-free normal saline was injected at all four medial branch levels after negative aspiration of CSF and blood and with no paresthesias. Cannulas were retracted while injecting lidocaine 1% until the needles were removed. At the end of the procedure, the skin was cleansed and bandages were applied. COMPLICATIONS: No acute complications. DISPOSITION / PLANS: The patient was placed in a supine position and transferred to the recovery area in a stable condition for observation and was discharged from the recovery room after meeting discharge criteria. Home discharge instructions given to the patient by the staff. The patient was reexamined prior to discharge. The patient will schedule a left lumbar RFA at next visit.
[2017-03-30 23:20] VITALS: BP 111/72; PULSE 88; RESP 16; TEMP 97.9
== END 2017-03-30 09:43 | disposition home or self-care (01) ==
LOC: ORPAIN 07:29
PROVIDERS: ATTEND Anesthesiology
DX: M47.816 Spondylosis without myelopathy or radiculopathy, lumbar region (principal); I10 Essential (primary) hypertension; E78.5 Hyperlipidemia, unspecified; F41.9 Anxiety disorder, unspecified; K21.9 Gastro-esophageal reflux disease without esophagitis; Z88.0 Allergy status to penicillin; Z91.041 Radiographic dye allergy status; Z88.2 Allergy status to sulfonamides; Z88.8 Allergy status to other drugs, medicaments and biological substances
CPT/HCPCS: 64635; 64636 ×2; J2250; J3301; J2001; J3010; 99152

== ENCOUNTER 2017-04-27 08:24 | Day surgery (SDC) | payer BC ==
[2017-04-25 15:13] VITALS: BMI 40.7
[2017-04-27 08:39] VITALS: RESP 18; TEMP 98
[2017-04-27] MEDS ORDERED: LACTATED RINGERS 1,000 ML IV ONE (08:39)
[2017-04-27] MEDS ORDERED: LIDOCAINE 1% 20 ML VIAL (10MG/ML) FOR IV START INTRADERMA ONE (08:40)
[2017-04-27] MEDS ORDERED: LACTATED RINGERS 1,000 ML IV SCH (09:00)
--- NOTE | 2017-04-27 10:07 | P.PCN ---
Date of Procedure: 04/27/17 Surgeon: Yonatan Quiñonez Pathology: none sent Condition: stable Disposition: PACU Description of Procedure: PREOPERATIVE DIAGNOSIS: Lumbar spondylosis without myelopathy and facet arthropathy POSTOPERATIVE DIAGNOSIS: Lumbar spondylosis without myelopathy and facet arthropathy PROCEDURES: Left Radiofrequency thermocoagulation, L3-L4, L4-L5, and L5-S1 medial branch, with fluoroscopic guidance. ANESTHESIA: 1% lidocaine plain; Conscious sedation with versed/fentanyl EBL: Minimal PROCEDURE INDICATION: The patient with low back pain secondary to lumbar arthropathy who had more than 50% relief of pain with previous diagnostic lumbar medial branch block with bupivacaine x2. Patient presents for left lumbar RFA today; no use of blood thinners. PROCEDURE DESCRIPTION / TECHNIQUE: The patient was seen and identified in the preoperative area. Risks, benefits, complications, and alternatives were discussed with the patient (including but not limited to incomplete pain relief , bleeding, infection, nerve damage, and allergies to medications), the patient agreed to proceed with the procedure and signed the consent after all questions were answered. Patient was taken to the OR and time out was completed to verify proper patient , position, laterality of pain, and allergies. Pt was placed in the prone position. IV was started. Vital signs remained stable throughout the procedure. A pillow was placed under the patients chest to decrease lordosis. The lumbosacral area was prepped and draped in the usual sterile fashion. Vital signs were closely monitored during the procedure. Conscious sedation was used during the procedure to decrease patients anxiety. Using AP and then oblique fluoroscopy, the eye of the Aime dog corresponding to the connection between the superior and transverse articular processes of left L3, L4, L5 and top of the sacrum were identified, marked, and localized with 1% lidocaine. Subsequently, a 18 gauge, 100-mm radiofrequency cannula with a 10-mm active tip was advanced guided by fluoroscopy to each of the eyes of the Aime dog at the levels of all four medial branches. Each site then underwent sensory testing at 50 Hz and 0 to 1 volt and motor testing at 2 Hz and 0 to 3 volt with local stimulation, but no radicular symptoms down the legs. Thereafter all four medial branch sites underwent radiofrequency thermocoagulation at 80 degrees Celsius for 90 seconds after injecting 0.5 ml of PF lidocaine 1%. After thermocoagulation, 1 ml of the block solution containing Kenalog 40 mg and 2 mL of preservative-free normal saline was injected at all four medial branch levels after negative aspiration of CSF and blood and with no paresthesias. Cannulas were retracted while injecting lidocaine 1% until the needles were removed. At the end of the procedure, the skin was cleansed and bandages were applied. COMPLICATIONS: No acute complications. DISPOSITION / PLANS: The patient was placed in a supine position and transferred to the recovery area in a stable condition for observation and was discharged from the recovery room after meeting discharge criteria. Home discharge instructions given to the patient by the staff. The patient was reexamined prior to discharge and there were no issues. The patient will schedule a follow up in clinic in 3-4 weeks.
[2017-04-27] MEDS ORDERED: IV FLUID CONTINUATION 550 ML IV ONE (10:23)
[2017-04-27 10:58] VITALS: BP 129/72; PULSE 97
--- NOTE | 2017-04-27 12:29 | FL ---
Fluoroscopy HISTORY: Pain 12 seconds fluoroscopy time supplied to the referring clinician. 6 intraoperative C-arm images docum ent the procedure. See dictated report from anesthesia.
== END 2017-04-27 11:17 | disposition home or self-care (01) ==
LOC: ORPAIN 08:24
PROVIDERS: ATTEND Anesthesiology
DX: M47.816 Spondylosis without myelopathy or radiculopathy, lumbar region (principal)
CPT/HCPCS: 64635; 64636; J2250; J3301; J3010; 99152

== ENCOUNTER → 2017-05-30 | Outpatient (CLI) | payer BC ==
[2017-05-30 14:16] VITALS: BP 129/87; PULSE 107; RESP 16; TEMP 99
--- NOTE | 2017-05-30 14:16 | P.PN ---
Progress Note - Text Progress Note Date: 05/30/17 Patient returns for followup for chronic neck pain with radiation to arms and low back pain. Patient underwent lumbar RFA recently with relief during interval between procedure. Patient continues on [place] and baclofen medications for pain with good relief. Patient denies adverse drug effects from medications. Today, pt denies new-onset weakness, bowel/bladder incontinence, or any other signs or symptoms of cauda equina syndrome. There are no signs of acute intoxication, and no indications of medication diversion or overuse. In addition to above, 13-point review of systems is also negative for chest pain , shortness of breath, changes in vision, changes in hearing, new onset weakness , abdominal pain, diarrhea, extreme fatigue, malaise, fever, skin changes, homicidal or suicidal ideation, or bowel or bladder incontinence. Vital Signs: Reviewed in EMR Gen: WDWN, AAOx3, NAD HEENT: NCAT, EOMI, hearing grossly normal Pulm: resp unlabored Abd: soft, NT, ND Neck: supple, trachea midline Lumbar facet loading: ++ bilateral, R > L SIJ tenderness: + bilateral Neuro: CN II-XII grossly intact, muscle strength lower extremities PRESERVED Imaging: Reviewed in EMR Assessment: 1. cervical spondylosis without myelopathy 2. cervical radiculopathy 3. chronic pain syndrome 4. lumbar spondylosis without myelopathy Plan: 1. Explanation: Opioid and psychological risk scores were reviewed. Diagnoses , prognoses, and multiple treatment options including but not limited to physical therapy, interventional therapies, adjuvant medical therapies, narcotic medication therapies, and surgery were discussed with the patient and all questions were answered to the patient's satisfaction. 2. Opioid agreement: Patient has previously signed narcotic agreement, and was orally counseled to not overuse, abuse, divert, or cell medications, and to take them as prescribed by only 1 healthcare provider. The patient was also counseled to store opioid medications in a safe and preferably locked location. Patient was also counseled against driving while using narcotic medications and also to not use alcohol or any illicit or recreational drugs. The patient verbalized understanding that lack of compliance with any of the above and likely result in failure to renew narcotic prescriptions, possible discharge from the clinic, and possible legal ramifications thereafter if indicated. 3. Counseling: The patient was counseled extensively on BODY MASS INDEX, EXERCISE. Specifically, the patient was instructed regarding the importance of obesity, and exercise in the context of both chronic pain and overall health. 4. Procedures: none for now 5. Consultations: None 6. Investigations: none for now 7. Medications: [place] 10 mg reduced to #75 with one refill 8. Disposition: f/u for re-eval in 8 weeks, consider repeat left cervical RFA in future PQRS measures: 1-Patient's medications are documented in the chart. 2-Tobacco use is negative. 3-Patient has not had a pneumococcal vaccine. 4-Advanced care planning discussed, patient unable to give. 5-Opioid contract signed with the patient. 6-Pain positive, follow-up visit or procedure scheduled 7-Patient's blood pressure measured and documented, and patient will follow up with the primary care due to hypertension. 8-Patient's weight was measured, and body mass index ABOVE the normal limits, and counseling was done. Patient instructed to follow up with PCP. 9-Patient WAS NOT identified as an unhealthy alcohol user.
== END | disposition home or self-care (01) ==
LOC: PNWHC3 13:53
PROVIDERS: ATTEND Anesthesiology
DX: G89.4 Chronic pain syndrome (principal); M47.22 Other spondylosis with radiculopathy, cervical region; M47.816 Spondylosis without myelopathy or radiculopathy, lumbar region; Z79.891 Long term (current) use of opiate analgesic; Z79.899 Other long term (current) drug therapy
CPT/HCPCS: 99211

== ENCOUNTER → 2017-07-25 | Outpatient (CLI) | payer BC ==
[2017-07-25 14:31] VITALS: BP 126/84; PULSE 96; RESP 16
--- NOTE | 2017-07-25 14:44 | P.PAINPG ---
Subjective Progress Note Date: 07/25/17 This is follow-up visit for this patient with a history of severe and chronic low back pain secondary to lumbar degenerative disc disease, lumbar facet arthropathy, we have done Radiofrequency ablation of the medial branch lumbar area , and this helped her low back pain significantly , she is able to do activities of daily livings , without any problems patient currently on [place] 10/325 every 8 hours , naproxen for 440 when necessary Patient denies any side effects of the medication, denies excessive drowsiness or sleepiness, denies suicidal ideation, and reports that the current pain medication is helping To control the pain and improve activity of daily living . Patient denies any motor or sensory deficit, denies change in bowel movement or urination, patient denies any fever or night sweats and patient here for follow-up visit and medication refill Objective - Vital Signs Vital signs: Vital Signs Temp Pulse 96 07/25/17 14:25 Resp 16 07/25/17 14:25 BP 126/84 07/25/17 14:25 Pulse Ox 98 07/25/17 14:25 Intake & Output 07/24/17 07/25/17 07/25/17 18:59 06:59 18:59 Weight 107.501 kg - Constitutional Constitutional Comment(s): Physical Examinations : 1-Constitutiona : Cooperative , not in acute distress . 2-HEENT : nech ; supple , no Lymphadenopathy , normal thyroid size . eyes : no ptosis , no icterus, no photophobia . ENT : normal of hearing , normal oropharynx , no Thrush . 3- Respiratory : Chest clear to auscultations Bilaterally , no wheezing , no Rhonchi . 4- Cardiovascular : regular rate and rhythem , S1 , S2 , no S3 , no S4. 5- Gastrointestinal : abdomen soft no tenderness , bowel sounds positive all four quadrents , no organomegally . 6- Genitourinary : Defferred . 7- neurologic : Cranial nerve II to XII intact , no focal neurological deffecit . 8-psychatric : alert , oriented X 3 , appropriate affect , intact judgment and insight . 9-Lymphatic : no Lymphadenopathy . 10- musculoskeltal : , Lumber spine = normal moter stegnth lower extremities ,thigh and legs .5/5 Assessment and Plan Plan: Assessment and plan= chronic low back pain secondary to lumbar degenerative disc disease , lumbar spondylosis with lumbar facet arthropathy , status post radiofrequency of the medial branch lumbar chronic and current use of high-risk medication (opioids) Patient denies any side effects of the current pain medication and the current treatment/medication ML and the patient to do activity of daily living , Diagnoses, prognosis, treatment options, including but not limited to physical therapy, medication management, interventional therapies, and surgery, were discussed with the patient All the questions answered Patient signed the narcotic agreement, and he was orally counseled, not to overuse, not to abuse, not to Divert , not tp sell pain medication, and to take it as prescribed only, Patient was counseled not to drive or operate heavy equipment while using narcotic medication, and advised not to use alcohol or any Illicit drugs while using the narcotis, the patient's verbalized understanding that lack of compliance with any of the above instructions and will likely to cause discharge from the pain service, not to renew his narcotic prescriptions Medication managements= patient will be given prescription refills for [place] 10/325 every 8 hours dispense 75 with one refill Patient given prescription for lumbar support brace/soft , to help patient doing physical therapy/exercise, she is complaining of severe pain when changing position, hopefully the lumbar support brace will make her able to do more physical activity and able to exercise, patient will follow up with the pain clinic in 2 months , Time with Patient: Less than 30 PQRS Measure Charge Sheet Measure #130: Documentation of Current Meds in Medical Chart: Patient's medications documented in chart Measure #226: Tobacco Use: Screen & Cessation Intervention: Pt not a tobacco user Measure #111: Pneumonia Vaccination: Pneumococcal vaccine NOT administered or previously given Measure #47: Advance Care Plan: Advance care planning discussed & documented, plan or surrogate given Measure #412: Opioid Treatment Agreement: Documented signed opioid trtmnt agreemnt min once during opioid trtmnt Measure #408: Opioid Therapy Follow-up Evaluation: Patient had f/u eval minimum every 3 months during opioid therapy Measure #317: Preventitive Care & Scrn High Bld Press & F/U: Normal blood pressure, f/u not required Measure #128: Body Mass Index (BMI) Screening & Follow-up: BMI documented ABOVE normal parameters - f/u documented Measure #131: Pain Assessment & Follow-up: Pain positive & plan documented, Follow-up scheduled Measure #431: Unhealthy Alcohol Use Preventative Care & Scrn: Patient not identified as an unhealthy alcohol user PQRS Narrative: Smoking Status Never smoker Do You Want the Pneumonia Vaccine Up to Date Vaccine AT THIS TIME? Narcotic Agreement Date Signed 09/16/15 Blood Pressure 126/84 Pain Intensity [Lower Back] 2 Scale Used Numeric (1 - 10) Hx Alcohol Use (MH) Yes: occational Home Medications: Ambulatory Orders Ascorbic Acid [Vitamin C] 500 mg PO BID 08/23/14 Ca/D3/Mag/Zinc/Linette/Brad/Mgbor [Caltrate 600+D3+Min Chew Tab] 1 each PO DAILY Cetirizine HCl [Zyrtec] 10 mg PO DAILY 08/23/14 Lisinopril [Zestril] 40 mg PO DAILY 08/23/14 Methylphenidate HCl [Concerta] 54 mg PO DAILY 08/23/14 Naproxen Sodium [Aleve] 440 mg PO Q12HR 08/23/14 Omeprazole [PriLOSEC] 20 mg PO DAILY 08/23/14 Vit No.124/Iron/Folic [ Vitamin Tablet] 1 each PO DAILY Psyllium Husk 100% [Metamucil] 5 cap PO BID 08/23/14 Zolpidem [Ambien] 10 mg PO HS 05/28/15 amLODIPine [Norvasc] 5 mg PO DAILY 05/28/15 Ipratropium/Albuterol Sulfate [Combivent Respimat Inhaler] 1 puff INHALATION DAILY PRN 12/09/15 LORazepam [Ativan] 1 mg PO BID PRN 02/24/16 L.acidoph,Paracasei, B.lactis [Probiotic] 1 each PO BID 03/10/16 Baclofen [Lioresal] 20 mg PO TID PRN 08/26/16 Furosemide [Lasix] 10 mg PO DAILY PRN 11/09/16 PARoxetine HCL [Paxil] 30 mg PO DAILY 04/25/17 HYDROcodone/APAP 10-325MG [[place] 10-325] 1 tab PO Q8H PRN #75 tab 07/25/17 Hydrocodone/Acetaminophen [[place] 10-325] 1 tab PO Q8H PRN #75 tab 07/25/17 Hydrocodone/Acetaminophen [[place] 10-325] 1 tab PO TID PRN 07/25/17 Controlled Substance Measures - Controlled Substance Measures Is patient prescribed a controlled substance at discharge?: Yes If prescribed controlled substance>3 days was MAPS reviewed?: Yes When asked, does pt state using other controlled substances?: No
== END | disposition home or self-care (01) ==
LOC: PNWHC3 13:08
PROVIDERS: ATTEND Specialist
DX: G89.29 Other chronic pain (principal); M54.5 Low back pain; M51.36 Other intervertebral disc degeneration, lumbar region; M47.816 Spondylosis without myelopathy or radiculopathy, lumbar region; M46.86 Other specified inflammatory spondylopathies, lumbar region; F11.20 Opioid dependence, uncomplicated; Z79.899 Other long term (current) drug therapy
CPT/HCPCS: 99211

== ENCOUNTER → 2017-09-19 | Outpatient (CLI) | payer BC ==
[2017-09-19 14:57] VITALS: BP 136/82; PULSE 101; RESP 16
--- NOTE | 2017-09-19 15:17 | P.PAINPG ---
Subjective Progress Note Date: 09/19/17 Principal diagnosis: Low back pain, neck pain This very pleasant 56 shoulder woman who presents today for medication management. She has a long-standing history of low back pain as well as neck pain. She is undergone rhizotomies in her cervical spine in the past which are very helpful for her. 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 She does not do much lifting. She reports pain begins in her low back on the right side primarily and radiates to her buttocks. She denies significant lumbar radicular symptoms. She denies any bowel or bladder dysfunction. She reports that she is tolerating her medications well. These are reduced in the recent past and she does tolerate the reduction well. She also occasionally receives some lorazepam to help with anxiety. She probably uses this approximately twice a month. She is very aware of the risks of using opioids and benzodiazepines concomitantly. She does have a young child at home, a growth was 18, and she does keep tight control of these medicines. Objective - Vital Signs Vital signs: Vital Signs Temp Pulse 101 H 09/19/17 14:47 Resp 16 09/19/17 14:47 BP 136/82 09/19/17 14:47 Pulse Ox 99 09/19/17 14:47 Intake & Output 09/18/17 09/19/17 09/19/17 18:59 06:59 18:59 Weight 102.058 kg - Exam General: The patient is alert and oriented. Patient is not sedateded Patient answers all question appropriately. Cardiac: Heart is regular in rate and rhythm Respiratory: Clear to auscultation. No audible wheezes. Abdomen: Soft nontender nondistended. Lower extremities: Strength is normal bilaterally. Sensation is normal bilaterally. Reflexes are preserved and symmetric bilaterally. Straight leg raise is negative bilaterally. Facet loading maneuvers are positive bilaterally the lumbar spine. Assessment and Plan (1) Spondylosis of lumbar region without myelopathy or radiculopathy Narrative/Plan: Plan of Care 1. Medications: I have refilled the patient's [place] today. I also counseled her again the risks of benzodiazepines and opiates. I have reviewed the patient's MAPS report and it reveals expected results. Patient has signed an opiate agreement as well as opiate consent for treatment in our clinic. They understand the risks and benefits of opiate medications. They are aware of the potential for addiction. 2. Interventions: No interventions are indicated at this time. 3. Referrals: No referrals were made at today's appointment. 4. Testing: No testing was ordered today. 5. Psychological: Patient does currently work with a mental health specialist to help with her anxiety. Current Visit: Yes Status: Acute Code(s): M47.816 - SPONDYLOSIS W/O MYELOPATHY OR RADICULOPATHY, LUMBAR REGION SNOMED Code(s): 47087957 (2) Arthropathy of cervical facet joint Current Visit: No Status: Acute Code(s): M46.92 - UNSPECIFIED INFLAMMATORY SPONDYLOPATHY, CERVICAL REGION SNOMED Code(s): 249135022 (3) Sacroiliac joint dysfunction of both sides Current Visit: No Status: Acute Code(s): M53.3 - SACROCOCCYGEAL DISORDERS, NOT ELSEWHERE CLASSIFIED SNOMED Code(s): 478395709 (4) Degenerative disc disease, cervical Current Visit: No Status: Chronic Code(s): M50.30 - OTHER CERVICAL DISC DEGENERATION, UNSP CERVICAL REGION SNOMED Code(s): 70037655 PQRS Measure Charge Sheet Measure #130: Documentation of Current Meds in Medical Chart: Patient's medications documented in chart Measure #226: Tobacco Use: Screen & Cessation Intervention: Pt not a tobacco user Measure #111: Pneumonia Vaccination: Pneumococcal vaccine NOT administered or previously given Measure #47: Advance Care Plan: Advance care planning discussed & documented, pt chose/unable to give Measure #412: Opioid Treatment Agreement: Documented signed opioid trtmnt agreemnt min once during opioid trtmnt Measure #408: Opioid Therapy Follow-up Evaluation: Patient had f/u eval minimum every 3 months during opioid therapy Measure #317: Preventitive Care & Scrn High Bld Press & F/U: Normal blood pressure, f/u not required Measure #128: Body Mass Index (BMI) Screening & Follow-up: BMI documented ABOVE normal parameters - f/u documented Measure #131: Pain Assessment & Follow-up: Pain positive & plan documented Measure #431: Unhealthy Alcohol Use Preventative Care & Scrn: Patient not identified as an unhealthy alcohol user PQRS Narrative: Smoking Status Never smoker Do You Want the Pneumonia No Vaccine AT THIS TIME? Narcotic Agreement Date Signed 09/16/15 Blood Pressure 136/82 Pain Intensity [Lower Back] 2 Scale Used Numeric (1 - 10) Hx Alcohol Use (MH) Yes: occational Home Medications: Ambulatory Orders Ascorbic Acid [Vitamin C] 500 mg PO BID 08/23/14 Ca/D3/Mag/Zinc/Linette/Brad/Mgbor [Caltrate 600+D3+Min Chew Tab] 1 each PO DAILY Cetirizine HCl [Zyrtec] 10 mg PO DAILY 08/23/14 Lisinopril [Zestril] 40 mg PO DAILY 08/23/14 Methylphenidate HCl [Concerta] 54 mg PO DAILY 08/23/14 Naproxen Sodium [Aleve] 440 mg PO Q12HR 08/23/14 Omeprazole [PriLOSEC] 20 mg PO DAILY 08/23/14 Vit No.124/Iron/Folic [ Vitamin Tablet] 1 each PO DAILY Psyllium Husk 100% [Metamucil] 5 cap PO BID 08/23/14 Zolpidem [Ambien] 10 mg PO HS 05/28/15 amLODIPine [Norvasc] 5 mg PO DAILY 05/28/15 Ipratropium/Albuterol Sulfate [Combivent Respimat Inhaler] 1 puff INHALATION DAILY PRN 12/09/15 LORazepam [Ativan] 1 mg PO BID PRN 02/24/16 L.acidoph,Paracasei, B.lactis [Probiotic] 1 each PO BID 03/10/16 Baclofen [Lioresal] 20 mg PO TID PRN 08/26/16 Furosemide [Lasix] 10 mg PO DAILY PRN 11/09/16 PARoxetine HCL [Paxil] 30 mg PO DAILY 04/25/17 HYDROcodone/APAP 10-325MG [[place] 10-325] 1 tab PO Q8H PRN #75 tab 07/25/17 Hydrocodone/Acetaminophen [[place] 10-325] 1 tab PO Q8H PRN #75 tab 07/25/17 Hydrocodone/Acetaminophen [[place] 10-325] 1 tab PO TID PRN 07/25/17 Controlled Substance Measures - Controlled Substance Measures Is patient prescribed a controlled substance at discharge?: Yes When asked, does pt state using other controlled substances?: Yes If prescribed controlled substance>3 days was MAPS reviewed?: Yes If Rx opioid, was Start Talking consent form obtained?: Yes Was information provided regarding opioid addiction?: Yes
== END | disposition home or self-care (01) ==
LOC: PNWHC3 14:08
PROVIDERS: ATTEND Pain Medicine Pain Medicine
DX: M47.816 Spondylosis without myelopathy or radiculopathy, lumbar region (principal); M46.92 Unspecified inflammatory spondylopathy, cervical region; M50.30 Other cervical disc degeneration, unspecified cervical region; M53.3 Sacrococcygeal disorders, not elsewhere classified; Z79.1 Long term (current) use of non-steroidal anti-inflammatories (NSAID); Z79.899 Other long term (current) drug therapy
CPT/HCPCS: 99211

== ENCOUNTER → 2017-11-14 | Outpatient (CLI) | payer BC ==
[2017-11-14 14:46] VITALS: BP 121/68; PULSE 91; RESP 16
--- NOTE | 2017-11-15 10:33 | P.PAINPG ---
Subjective Progress Note Date: 11/14/17 This is follow-up visit for this patient with a history of severe and chronic low back pain secondary to lumbar facet arthropathy, chronic neck pain secondary to cervical spondylosis facet arthropathy We have done an interventional pain procedure radiofrequency ablation of the medial branch lumbar area, radiofrequency ablation of the medial branch cervical area, she reported that the pain improved significantly The patient currently on [place] 10/325 every 8 hours, naproxen for 40 mg twice a day Patient denies any side effect of the medication , patient denies any excessive drowsiness or sleepiness, patient denies any suicidal ideation, Patient reported that the current medication is helping to control the pain and improve the activity of daily livings, Patient denies any motor or sensory deficit, denies any change in the bowel movement or urination, patient denies any fever or night sweats. Patient here today for follow-up visit and medication refill Objective - Vital Signs Vital signs: Vital Signs Temp Pulse 91 11/14/17 14:37 Resp 16 11/14/17 14:37 BP 121/68 11/14/17 14:37 Pulse Ox 96 11/14/17 14:37 Intake & Output 11/14/17 11/15/17 11/15/17 18:59 06:59 18:59 Weight 99.337 kg - Exam Physical Examinations : 1-Constitutiona : Cooperative , not in acute distress . 2-HEENT : nech ; supple , no Lymphadenopathy , normal thyroid size . eyes : no ptosis , no icterus , no photophobia . ENT : normal of hearing , normal oropharynx , no Thrush . 3- Respiratory : Chest clear to auscultations Bilaterally , no wheezing , no Rhonchi . 4- Cardiovascular : regular rate and rhythem , S1 , S2 , no S3 , no S4. 5- Gastrointestinal : abdomen soft no tenderness , bowel sounds , no organomegally . 6- Genitourinary : Defferred . 7- neurologic : Cranial nerve II to XII intact , no focal neurological deffecit . 8-psychatric : alert , oriented X 3 , appropriate affect , intact judgment and insight . 9-Lymphatic : no Lymphadenopathy . 10- musculoskeltal : Cervical Spine normal Motor strength in the upper extremities Lumber spine moter stegnth lower extremities ,thigh and legs 5/5 Right side , 5/5 Left side Assessment and Plan Assessment: Assessment and plan= chronic low back pain secondary to lumbar spondylosis with lumbar facet arthropathy . Chronic neck pain secondary to cervical spondylosis she had good response to the radiofrequency ablation of the medial branch cervical area and lumbar area chronic and current use of high-risk medication (opioids) Patient denies any side effects of the current pain medication and the current treatment/medication helping the patient to do activity of daily living , Diagnoses, prognosis, treatment options, including but not limited to physical therapy, medication management, interventional therapies, and surgery, were discussed with the patient All the questions answered The narcotic consent was signed and patient agreed and understood the side effects and complications of opioid treatment. Patient signed the narcotic agreement, and was orally counseled, not to overuse, not to abuse, not to Divert , not tp sell pain medication, and to take it as prescribed only, Patient was counseled not to drive or operate heavy equipment while using narcotic medication, and advised not to use alcohol or any Illicit drugs while using the narcotis, the patient's verbalized understanding that lack of compliance with any of the above instructions, will likely to cause discharge from, the pain service, not to renew his narcotic prescriptions Medication managements= patient will be given prescription refills for [place] 10/325 every 8 hours dispense 90 with 1 refill , Time with Patient: Less than 30 PQRS Measure Charge Sheet Measure #130: Documentation of Current Meds in Medical Chart: Patient's medications documented in chart Measure #226: Tobacco Use: Screen & Cessation Intervention: Pt not a tobacco user Measure #111: Pneumonia Vaccination: Pneumococcal vaccine NOT administered or previously given Measure #47: Advance Care Plan: Advance care planning discussed & documented, pt chose/unable to give Measure #412: Opioid Treatment Agreement: Documented signed opioid trtmnt agreemnt min once during opioid trtmnt Measure #408: Opioid Therapy Follow-up Evaluation: Patient had f/u eval minimum every 3 months during opioid therapy Measure #317: Preventitive Care & Scrn High Bld Press & F/U: Normal blood pressure, f/u not required Measure #128: Body Mass Index (BMI) Screening & Follow-up: BMI documented ABOVE normal parameters - f/u documented Measure #131: Pain Assessment & Follow-up: Pain positive & plan documented, Follow-up scheduled Measure #431: Unhealthy Alcohol Use Preventative Care & Scrn: Patient not identified as an unhealthy alcohol user PQRS Narrative: Smoking Status Never smoker Do You Want the Pneumonia No Vaccine AT THIS TIME? Narcotic Agreement Date Signed 11/14/17 Blood Pressure 121/68 Pain Intensity [None] 0 Scale Used Numeric (1 - 10) Hx Alcohol Use (MH) Yes: occational Home Medications: Ambulatory Orders Ascorbic Acid [Vitamin C] 500 mg PO BID 08/23/14 Ca/D3/Mag/Zinc/Linette/Brad/Mgbor [Caltrate 600+D3+Min Chew Tab] 1 each PO DAILY Cetirizine HCl [Zyrtec] 10 mg PO DAILY 08/23/14 Lisinopril [Zestril] 40 mg PO DAILY 08/23/14 Methylphenidate HCl [Concerta] 54 mg PO DAILY 08/23/14 Naproxen Sodium [Aleve] 440 mg PO Q12HR 08/23/14 Omeprazole [PriLOSEC] 20 mg PO DAILY 08/23/14 Vit No.124/Iron/Folic [ Vitamin Tablet] 1 each PO DAILY Psyllium Husk 100% [Metamucil] 5 cap PO BID 08/23/14 Zolpidem [Ambien] 10 mg PO HS 05/28/15 amLODIPine [Norvasc] 5 mg PO DAILY 05/28/15 Ipratropium/Albuterol Sulfate [Combivent Respimat Inhaler] 1 puff INHALATION DAILY PRN 12/09/15 LORazepam [Ativan] 1 mg PO BID PRN 02/24/16 L.acidoph,Paracasei, B.lactis [Probiotic] 1 each PO BID 03/10/16 Baclofen [Lioresal] 20 mg PO TID PRN 08/26/16 Furosemide [Lasix] 10 mg PO DAILY PRN 11/09/16 PARoxetine HCL [Paxil] 30 mg PO DAILY 04/25/17 Hydrocodone/Acetaminophen [[place] 10-325] 1 tab PO Q8H PRN #75 tab 07/25/17 Controlled Substance Measures - Controlled Substance Measures Is patient prescribed a controlled substance at discharge?: Yes When asked, does pt state using other controlled substances?: No If prescribed controlled substance>3 days was MAPS reviewed?: Yes If Rx opioid, was Start Talking consent form obtained?: Yes If opioid is for acute pain is fill amount 7 days or less?: No Was information provided regarding opioid addiction?: Yes
== END | disposition home or self-care (01) ==
LOC: PNWHC3 14:28
PROVIDERS: ATTEND Specialist
DX: G89.29 Other chronic pain (principal); M47.816 Spondylosis without myelopathy or radiculopathy, lumbar region; M46.96 Unspecified inflammatory spondylopathy, lumbar region; M47.812 Spondylosis without myelopathy or radiculopathy, cervical region; Z79.891 Long term (current) use of opiate analgesic; Z79.899 Other long term (current) drug therapy; Z79.1 Long term (current) use of non-steroidal anti-inflammatories (NSAID)
CPT/HCPCS: 99211

== ENCOUNTER → 2018-01-09 | Outpatient (CLI) | payer BC ==
[2018-01-09 14:27] VITALS: RESP 16
[2018-01-09 14:29] VITALS: BP 136/81; PULSE 85
--- NOTE | 2018-01-09 14:46 | P.PN ---
Subjective Progress Note Date: 01/09/18 This is a 47-year-old lady with history of neck and lower back pain due to lumbar and cervical spondylosis without myelopathy. The patient had lumbar and cervical medial branch radiofrequency ablation previously and her pain has been overall tolerable with a few exacerbations. The patient uses [place] 10 mg 2-3 times per day and she denies any side effects to it. Today, pt denies new-onset weakness, bowel/bladder incontinence, or any other signs or symptoms of cauda equina syndrome. There are no signs of acute intoxication, and no indications of medication diversion or overuse. In addition to above, 13-point review of systems is also negative for chest pain , shortness of breath, changes in vision, changes in hearing, new onset weakness , abdominal pain, diarrhea, extreme fatigue, malaise, fever, skin changes, homicidal or suicidal ideation, or bowel or bladder incontinence. Vital Signs: Reviewed in EMR Gen: AAOx3, NAD HEENT: PERRLA,hearing grossly normal Pulm: resp unlabored,CTA Heart:S1,S2, No [place] Neck: supple, trachea midline Neuro exam of the lower extremities: Normal muscle strength laterally. Absent left knee reflex. Normal right knee reflex. 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 Explanation: Opioid and psychological risk scores were reviewed. Diagnoses , prognoses, and multiple treatment options including but not limited to physical therapy, interventional therapies, adjuvant medical therapies, narcotic medication therapies, and surgery were discussed with the patient and all questions were answered to the patient's satisfaction. 2. Opioid agreement: Signed with the patient and the patient is warned not to use opioids while driving or before driving and not to combine opioids with benzodiazepines or alcohol. 3. Counseling: The patient was counseled extensively on SMOKING CESSATION, BODY MASS INDEX, EXERCISE. Specifically, the patient was instructed regarding the importance of smoking cessation, obesity, and exercise in the context of both chronic pain and overall health. 4. Procedures: None at this point 5. Consultations: None 6. Investigations: UDS on her next visit 7. Medications: [place] 10 mg #75 pills with 1 refill 8. Disposition: Return to clinic in 8 weeks 9. Maps were reviewed and were appropriate. Objective - Vital Signs Vital signs: Vital Signs Temp Pulse 85 01/09/18 14:21 Resp 16 01/09/18 14:21 BP 136/81 01/09/18 14:21 Pulse Ox Intake & Output 01/08/18 01/09/18 01/09/18 18:59 06:59 18:59 Weight 99.337 kg
== END | disposition home or self-care (01) ==
LOC: PNWHC3 14:01
PROVIDERS: ATTEND Anesthesiology
DX: M47.812 Spondylosis without myelopathy or radiculopathy, cervical region (principal); M47.816 Spondylosis without myelopathy or radiculopathy, lumbar region; E66.9 Obesity, unspecified; F11.20 Opioid dependence, uncomplicated; Z68.38 Body mass index [BMI] 38.0-38.9, adult; Z98.890 Other specified postprocedural states
CPT/HCPCS: 99211

== ENCOUNTER → 2018-04-17 | Outpatient (CLI) | payer BC ==
[2018-04-17 13:06] VITALS: BP 127/75; PULSE 88; RESP 16
--- NOTE | 2018-04-17 14:06 | P.PN ---
Subjective Progress Note Date: 04/17/18 This is follow-up visit for this patient with a history of severe and chronic low back pain secondary to lumbar facet arthropathy, chronic neck pain secondary to cervical spondylosis facet arthropathy We have done an interventional pain procedure radiofrequency ablation of the medial branch lumbar area, which was done in March 2017, she gets excellent pain relief of the low back pain, and we have done radiofrequency ablation of the medial branch cervical area, which was done in March 2016 and she gets excellent pain relief of her neck pain , Patient broke her right wrist recently and she gets prescription for [place] from her orthopedic surgeon The patient currently on [place] 10/325 every 8 hours, Patient denies any side effect of the medication , patient denies any excessive drowsiness or sleepiness, patient denies any suicidal ideation, Patient reported that the current medication is helping to control the pain and improve the activity of daily livings, Patient denies any motor or sensory deficit, denies any change in the bowel movement or urination, patient denies any fever or night sweats. And currently patient reported that she is having severe neck pain localized in the cervical area mainly on the left side and she is complaining of severe low back pain mainly on the right side, she denies any motor or sensory deficit she denies any change in the bowel movement or urination Patient here today for follow-up visit and medication refill Physical Examinations : 1-Constitutiona : Cooperative , not in acute distress . 2-HEENT : nech ; supple , no Lymphadenopathy , normal thyroid size . eyes : no ptosis , no icterus , no photophobia . ENT : normal of hearing , normal oropharynx , no Thrush . 3- Respiratory : Chest clear to auscultations Bilaterally , no wheezing , no Rhonchi . 4- Cardiovascular : regular rate and rhythem , S1 , S2 , no S3 , no S4. 5- Gastrointestinal : abdomen soft no tenderness , bowel sounds , no organomegally . 6- Genitourinary : Defferred . 7- neurologic : Cranial nerve II to XII intact , no focal neurological deffecit . 8-psychatric : alert , oriented X 3 , appropriate affect , intact judgment and insight . 9-Lymphatic : no Lymphadenopathy . 10- musculoskeltal : Cervical Spine normal Motor strength in the upper extremities Positive facet loading test cervical area left side more than the right side Normal motor strength and normal sensation Lumber spine moter stegnth lower extremities ,thigh and legs 5/5 Right side , 5/5 Left side Positive facet loading test lumbar area bilaterally but it's more prominent on the right side Assessment and plan= chronic low back pain secondary to lumbar spondylosis with lumbar facet arthropathy . Chronic neck pain secondary to cervical spondylosis she had good response to the radiofrequency ablation of the medial branch cervical area and lumbar area , patient had good results after the radiofrequency for more than 2 years in the cervical area and she had Improvement of low back pain after the radiofrequency lasted more than a year chronic and current use of high-risk medication (opioids) Patient denies any side effects of the current pain medication and the current treatment/medication helping the patient to do activity of daily living , Diagnoses, prognosis, treatment options, including but not limited to physical therapy, medication management, interventional therapies, and surgery, were discussed with the patient All the questions answered The narcotic consent was signed and patient agreed and understood the side effects and complications of opioid treatment. Patient signed the narcotic agreement, and was orally counseled, not to overuse, not to abuse, not to Divert , not tp sell pain medication, and to take it as prescribed only, Patient was counseled not to drive or operate heavy equipment while using narcotic medication, and advised not to use alcohol or any Illicit drugs while using the narcotis, understanding that lack of compliance with any of the above instructions, will likely to cause discharge from, the pain service, not to renew his narcotic prescriptions Medication managements= patient will be given prescription refills for [place] 10/325 every 8 hours dispense 75 with 1 refill MAPS reviewed and it was appropriate patient prescription refill for [place] 7.5/325 from her orthopedic surgeon for 1 prescription only Patient will be good candidate to have radiofrequency ablation of the medial branch cervical area left side C3 4/C4 5/C5 6 , and later on we can do radiofrequency ablation of the medial branch lumbar area right side L3/L4 5/L5-S1 UDS order today. , PQRS Measure Charge Sheet Measure #130: Documentation of Current Meds in Medical Chart: Patient's medications documented in chart Measure #226: Tobacco Use: Screen & Cessation Intervention: Pt not a tobacco user Measure #111: Pneumonia Vaccination: Pneumococcal vaccine administered or previously given Measure #47: Advance Care Plan: Advance care planning discussed & documented, pt chose/unable to give Measure #412: Opioid Treatment Agreement: Documented signed opioid trtmnt agreemnt min once during opioid trtmnt Measure #408: Opioid Therapy Follow-up Evaluation: Patient had f/u eval minimum every 3 months during opioid therapy Measure #317: Preventitive Care & Scrn High Bld Press & F/U: Normal blood pressure, f/u not required Measure #128: Body Mass Index (BMI) Screening & Follow-up: BMI documented ABOVE normal parameters - f/u documented Measure #131: Pain Assessment & Follow-up: Pain positive & plan documented, Follow-up scheduled Measure #431: Unhealthy Alcohol Use Preventative Care & Scrn: Patient not identified as an unhealthy alcohol user PQRS Narrative: - Controlled Substance Measures Is patient prescribed a controlled substance at discharge?: Yes When asked, does pt state using other controlled substances?: No If prescribed controlled substance>3 days was MAPS reviewed?: Yes If Rx opioid, was Start Talking consent form obtained?: Yes If opioid is for acute pain is fill amount 7 days or less?: No Was information provided regarding opioid addiction?: Yes Objective - Vital Signs Vital signs: Vital Signs Temp Pulse 88 04/17/18 12:54 Resp 16 04/17/18 12:54 BP 127/75 04/17/18 12:54 Pulse Ox 98 04/17/18 12:54 Intake & Output 04/16/18 04/17/18 04/17/18 18:59 06:59 18:59 Weight 98.43 kg
== END | disposition home or self-care (01) ==
LOC: PNWHC3 12:39
PROVIDERS: ATTEND Specialist
DX: G89.29 Other chronic pain (principal); M47.816 Spondylosis without myelopathy or radiculopathy, lumbar region; M46.96 Unspecified inflammatory spondylopathy, lumbar region; M47.812 Spondylosis without myelopathy or radiculopathy, cervical region; Z98.890 Other specified postprocedural states; Z79.891 Long term (current) use of opiate analgesic
CPT/HCPCS: 99211

== ENCOUNTER 2018-05-08 07:02 | Day surgery (SDC) | payer BC ==
[2018-05-04 10:46] VITALS: BMI 39.6
[~2018-05-08 07:02] MED LIST changes: -LACTATED RINGERS 1,000 ML IV ONE; +SODIUM CHLORIDE 0.9% 500 ML 500 ML IV SCH
--- NOTE | 2018-05-08 07:10 | P.GSHP ---
History of Present Illness H&P Date: 05/08/18 57-year-old female presenting for a left cervical radio frequency ablation of C3 -C4, C4-C5, C5-C6. VAS today is a 7 out of 10 in severity. Mostly left neck pain radiating into her shoulder into the proximal part of her scapula. She's had good responses to cervical radio frequency ablations. CVS: Regular rate and rhythm, no peripheral edema Pulmonary: Nonlabored respirations, no wheezing. 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 History of Any Multi-Drug Resistant Organisms: None Reported Past Surgical History: Bariatric Surgery, Hernia Repair, Orthopedic Surgery, Tubal Ligation Additional Past Surgical History / Comment(s): gastric bypass, arthroscopic surgery bilateral knees with lateral ligament releases, umbilical hernia repair with mesh, PAIN CLINIC PROCEDURES, bilateral carpal tunnel surgery.Fx knee repair, R and L cataract surgery. Past Anesthesia/Blood Transfusion Reactions: Motion Sickness, Postoperative Nausea & Vomiting (PONV) Smoking Status: Never smoker - Past Family History Mother Family Medical History: Cancer Additional Family Medical History / Comment(s): BOWEL AND LIVER, Medications and Allergies Home Medications Medication Instructions Recorded Confirmed Type Ascorbic Acid [Vitamin C] 500 mg PO BID 08/23/14 05/04/18 History Ca/D3/Mag/Zinc/Linette/Brad/Mgbor 1 each PO DAILY 08/23/14 05/04/18 History [Caltrate 600+D3+Min Chew Tab] Cetirizine HCl [Zyrtec] 10 mg PO DAILY 08/23/14 05/04/18 History Lisinopril [Zestril] 40 mg PO DAILY 08/23/14 05/04/18 History Methylphenidate HCl [Concerta] 54 mg PO DAILY 08/23/14 05/04/18 History Naproxen Sodium [Aleve] 440 mg PO Q12HR 08/23/14 05/04/18 History Omeprazole [PriLOSEC] 20 mg PO DAILY 08/23/14 05/04/18 History Vit No.124/Iron/Folic 1 each PO DAILY 08/23/14 05/04/18 History [ Vitamin Tablet] Psyllium Husk 100% [Metamucil] 5 cap PO BID 08/23/14 05/04/18 History Zolpidem [Ambien] 10 mg PO HS 05/28/15 05/04/18 History amLODIPine [Norvasc] 5 mg PO DAILY 05/28/15 05/04/18 History Ipratropium/Albuterol Sulfate 1 puff INHALATION DAILY PRN 12/09/15 05/04/18 History [Combivent Respimat Inhaler] LORazepam [Ativan] 1 mg PO BID PRN 02/24/16 05/04/18 History L.acidoph,Paracasei, B.lactis 1 each PO BID 03/10/16 05/04/18 History [Probiotic] Baclofen [Lioresal] 20 mg PO TID PRN 08/26/16 05/04/18 History Furosemide [Lasix] 10 mg PO DAILY PRN 11/09/16 05/04/18 History PARoxetine HCL [Paxil] 30 mg PO DAILY 04/25/17 05/04/18 History HYDROcodone/APAP 10-325MG [[place] 1 tab PO Q8HR PRN 30 Days #75 tab 04/17/1810/13 Rx 10-325] Hydrocodone/Acetaminophen [[place] 1 tab PO Q8H PRN #75 tab 04/17/18 05/04/18 Rx 10-325] Allergies Allergy/AdvReac Type Severity Reaction Status Date / Time duloxetine [From Cymbalta] Allergy Hallucinati Verified 05/04/18 10:53 ons fluoxetine HCl [From Prozac] Allergy Nausea Verified 05/04/18 10:32 metoclopramide HCl Allergy dystonic Verified 05/04/18 10:32 [From Reglan] reaction, UNABLE TO FOCUS Penicillins Allergy Rash/Hives Verified 05/04/18 10:32 Sulfa (Sulfonamide Allergy Rash/Hives Verified 05/04/18 10:32 Antibiotics) atomoxetine HCl AdvReac Severe Dyspnea Verified 05/04/18 10:32 [From Strattera]
[2018-05-08 07:23] VITALS: TEMP 99.1
[2018-05-08] MEDS ORDERED: LIDOCAINE 1% 20 ML VIAL (10MG/ML) FOR IV START INTRADERMA ONE (07:30)
[2018-05-08] MEDS ORDERED: LACTATED RINGERS 1,000 ML IV ONE ×2 (07:33→08:28)
--- NOTE | 2018-05-08 07:33 | P.PCN ---
Date of Procedure: 05/08/18 Description of Procedure: PREOPERATIVE DIAGNOSIS: Cervical spondylosis with Facet Arthropathy without myelopathy. POSTOPERATIVE DIAGNOSIS: Cervical spondylosis with Facet Arthropathy without myelopathy. PROCEDURES: Radiofrequency thermocoagulation, LEFT C3-C4, C4-C5, C5-C6 medial branch with Fluroscopy Guidence (4 needles, 3 facet joints) ANESTHESIA: Local with 1% lidocaine; IV sedation with fentanyl and Versed. SURGEON: Jaime Morrissey M.D. EBL: Minimal PROCEDURE INDICATION: The patient with neck pain secondary to cervical arthropathy had 2 years relief with last radiofrequency ablation. PROCEDURE DESCRIPTION / TECHNIQUE: The patient was seen and identified in the preoperative area. Risks, benefits, complications, and alternatives were discussed with the patient, the patient agreed to proceed with the procedure and signed the consent. IV was started. Vital signs remained stable throughout the procedure. Patient was taken to the OR and time out was completed. The patient was placed in the prone position on the procedure table. A pillow was placed under the patients chest to increase the cervical interlaminar space. The cervical area was prepped and draped in the usual sterile fashion. Critical pause was taken. Vital signs were closely monitored during the procedure. Conscious sedation was used during the procedure to decrease patients anxiety. Using cross-table lateral fluoroscopy, the centroid of the trapezoid of C3, C4, C5, and C6 were identified, marked, and localized with 1% lidocaine. Subsequently, a 20 [id number] radiofrequency cannula with a 10-mm active tip was advanced guided by fluoroscopy to the centroid of the trapezoid of C3, C4, C5, and C6 . Needle tip position was confirmed at the centroid of the trapezoids of C3, C4, C5, and C6 with anteroposterior fluoroscopy. Each site then underwent sensory testing at 50 Hz and 0 to 1 volt and motor testing at 2 Hz and 0 to 3 volt with local stimulation, but no radicular symptoms down the arm. Thereafter C3, C4,C5 and C6 sites underwent radiofrequency thermocoagulation at 80 degrees celsius for 90 seconds after injecting 0.5 ml of PF lidocaine 1%. After thermocoagulation, 1 ml of the block solution containing Kenalog 40 mg and 5 mL of preservative-free normal saline was injected at the C3, C4, C5, and C6 levels after negative aspiration of CSF and blood and with no paresthesias. Cannulas were retracted while injecting lidocaine 1% until the needle is out. Skin was cleansed and bandages were applied. COMPLICATIONS: No acute complications. COMMENTS: DISPOSITION / PLANS: The patient was placed in a supine position and transferred to the recovery area in a stable condition for observation and was discharged from the recovery room after meeting discharge criteria. Home discharge instructions given to the patient by the staff. The patient was reexamined prior to discharge. The patient will schedule a follow up in the clinic in 4 weeks.
[2018-05-08] MEDS ORDERED: KETOROLAC 30 MG/ML 1 ML VIAL IVP ONE (08:34)
--- NOTE | 2018-05-08 08:54 | FL ---
Fluoroscopy HISTORY: Pain 1 minute 32 seconds fluoroscopy time supplied to the referring clinician. 2 intraoperative C-arm tad ges document the procedure. See dictated report from anesthesia.
[2018-05-08 09:07] VITALS: BP 102/69; PULSE 83; RESP 16
== END 2018-05-08 09:39 | disposition home or self-care (01) ==
LOC: ORPAIN 07:02
PROVIDERS: ATTEND Anesthesiology
DX: G89.29 Other chronic pain (principal); M47.812 Spondylosis without myelopathy or radiculopathy, cervical region; M19.90 Unspecified osteoarthritis, unspecified site; M47.816 Spondylosis without myelopathy or radiculopathy, lumbar region; K21.9 Gastro-esophageal reflux disease without esophagitis; I10 Essential (primary) hypertension; Z88.0 Allergy status to penicillin; Z88.2 Allergy status to sulfonamides; Z88.8 Allergy status to other drugs, medicaments and biological substances; Z98.84 Bariatric surgery status; Z79.891 Long term (current) use of opiate analgesic; Z79.1 Long term (current) use of non-steroidal anti-inflammatories (NSAID); Z79.899 Other long term (current) drug therapy
CPT/HCPCS: 64633; 64634 ×2; J2250; J1030; J2001; J3010; J1885; 99152; 99153

== ENCOUNTER → 2018-05-22 | Day surgery (SDC) | payer BC ==
[2018-05-18 11:01] VITALS: BMI 39.6
[~2018-05-22] MED LIST changes: +IV FLUID CONTINUATION 1,000 ML IV ONE; +LACTATED RINGERS 1,000 ML IV ONE
[2018-05-22 07:36] VITALS: TEMP 97.1
--- NOTE | 2018-05-22 08:05 | P.PCN ---
Date of Procedure: 05/22/18 Surgeon: Dora Chappell Pathology: none sent Condition: stable Disposition: PACU Description of Procedure: PREOPERATIVE DIAGNOSIS: Lumbar spondylosis without myelopathy, morbid obesity POSTOPERATIVE DIAGNOSIS: Lumbar spondylosis without myelopathy,morbid obesity PROCEDURES : Right Radiofrequency thermocoagulation L3-L4, L4-L5, and L5-S1 medial branch, with fluoroscopic guidance ANESTHESIA: IV moderate conscious sedation with versed and fentanyl and local infiltration with lidocaine 1% 5 ml EBL: Minimal PROCEDURE INDICATION: The patient with low back pain secondary to lumbar facet arthropathy who had more than 50% relief of her pain with previous diagnostic lumbar medial branch block with bupivacaine. PROCEDURE DESCRIPTION / TECHNIQUE: The patient was seen and identified in the preoperative area. Risks, benefits, complications, including but not limited to risk of infection ,bleeding , allergic reactions to the medications and no complete pain relief , and alternatives were discussed with the patient, the patient agreed to proceed with the procedure and signed the consent. IV was started. Vital signs remained stable throughout the procedure. Patient was taken to the OR and time out was completed. The patient was placed in the prone position on the procedure table. The lumber area was prepped and draped in the usual sterile fashion. . Vital signs were closely monitored during the procedure .IV sedation was used during the procedure to decrease patients anxiety. The target points were identified as follows: For the L5-S1 level which corresponds to the dorsal ramus of L5 the target point was at the superior medial aspect of the sacral ala on the Rt side of the spine on the AP view of fluoroscopy and for the L2, L3, and L4 medial branches the target points were at the connection between the transverse process and the superior articular process of L3, L4, and L5 vertebra respectively on the Rt oblique view of fluoroscopy. skin was marked, and localized with 1% lidocaineat these points. Subsequently, an 18 [id number] radiofrequency needles with a 10-mm curved active tips were advanced guided by fluoroscopy to each of the target points mentioned above in a superior medial direction to get the active tips as parallel as possible to the medial branches tracks. AP, oblique, and lateral views of fluoroscopy were used to verify needle tips position. Each level then underwent motor testing at 2.5 Hz and 0 to 3 volt with local stimulation, but no radicular symptoms down the legs. Thereafter radiofrequency thermocoagulation at 80 degrees celsius for 90 seconds after injecting 1 ml of PF Marcaine 0.5%(3 mls) with 40 mg of Kenalog. At the end of the procedure, the skin was cleansed and bandages were applied. COMPLICATIONS: No acute complications. DISPOSITION / PLANS: The patient was placed in a supine position and transferred to the recovery area in a stable condition for observation and was discharged from the recovery room after meeting discharge criteria. Home discharge instructions given to the patient by the staff. The patient was reexamined prior to discharge. The patient will schedule a follow up in the clinic in 2-4 weeks.
[2018-05-22 08:29] VITALS: BP 115/71; PULSE 83; RESP 18
--- NOTE | 2018-05-22 09:43 | FL ---
EXAMINATION TYPE: FL guided pain mgmt statistic DATE OF EXAM: 05/22/2018 HISTORY: Flouroscopy time 32 seconds of fluoroscopy provided. IMPRESSION: 1. Fluoroscopy time.
== END | disposition home or self-care (01) ==
LOC: ORPAIN 07:08
PROVIDERS: ATTEND Anesthesiology
DX: M47.26 Other spondylosis with radiculopathy, lumbar region (principal); E66.01 Morbid (severe) obesity due to excess calories; Z88.2 Allergy status to sulfonamides; Z88.0 Allergy status to penicillin; Z68.39 Body mass index [BMI] 39.0-39.9, adult
CPT/HCPCS: 64635; 64636 ×2; J2250; J3301; J3010; 99152

== ENCOUNTER → 2018-06-12 | Outpatient (CLI) | payer BC ==
[2018-06-12 12:50] VITALS: BP 115/72; PULSE 91; RESP 16
--- NOTE | 2018-06-13 12:45 | P.PN ---
Progress Note - Text Progress Note Date: 06/12/18 Patient returns for followup for chronic neck pain with radiation to arms and low back pain. Patient underwent lumbar RFA recently with relief during interval between procedure. Patient continues on [place] and baclofen medications for pain with good relief. Patient denies adverse drug effects from medications. Today, pt denies new-onset weakness, bowel/bladder incontinence, or any other signs or symptoms of cauda equina syndrome. There are no signs of acute intoxication, and no indications of medication diversion or overuse. In addition to above, 13-point review of systems is also negative for chest pain, shortness of breath, changes in vision, changes in hearing, new onset weakness, abdominal pain, diarrhea, extreme fatigue, malaise, fever, skin changes, homicidal or suicidal ideation, or bowel or bladder incontinence. Vital Signs: Reviewed in EMR Gen: WDWN, AAOx3, NAD HEENT: NCAT, EOMI, hearing grossly normal Pulm: resp unlabored Abd: soft, NT, ND Neck: supple, trachea midline Lumbar facet loading: ++ bilateral, R > L SIJ tenderness: + bilateral Neuro: CN II-XII grossly intact, muscle strength lower extremities PRESERVED Imaging: Reviewed in EMR Assessment: 1. cervical spondylosis without myelopathy 2. cervical radiculopathy 3. chronic pain syndrome 4. lumbar spondylosis without myelopathy Plan: 1. Explanation: Opioid and psychological risk scores were reviewed. Diagnoses, prognoses, and multiple treatment options including but not limited to physical therapy, interventional therapies, adjuvant medical therapies, narcotic medication therapies, and surgery were discussed with the patient and all questions were answered to the patient's satisfaction. 2. Opioid agreement: Patient has previously signed narcotic agreement, and was orally counseled to not overuse, abuse, divert, or cell medications, and to take them as prescribed by only 1 healthcare provider. The patient was also counseled to store opioid medications in a safe and preferably locked location. Patient was also counseled against driving while using narcotic medications and also to not use alcohol or any illicit or recreational drugs. The patient verbalized understanding that lack of compliance with any of the above and likely result in failure to renew narcotic prescriptions, possible discharge from the clinic, and possible legal ramifications thereafter if indicated. 3. Counseling: The patient was counseled extensively on BODY MASS INDEX, EXE RCISE. Specifically, the patient was instructed regarding the importance of obesity, and exercise in the context of both chronic pain and overall health. 4. Procedures: none for now 5. Consultations: None 6. Investigations: Maps reviewed and appropriate with patient's history. UDS will be done this visit has been over 2 years since her last one. 7. Medications: [place] 10 mg reduced to #75 with one refill 8. Disposition: f/u for re-eval in 8 weeks, consider repeat left cervical RFA in future PQRS measures: 1-Patient's medications are documented in the chart. 2-Tobacco use is negative. 3-Patient has not had a pneumococcal vaccine. 4-Advanced care planning discussed, patient unable to give. 5-Opioid contract signed with the patient. 6-Pain positive, follow-up visit or procedure scheduled 7-Patient's blood pressure measured and documented, and patient will follow up with the primary care due to hypertension. 8-Patient's weight was measured, and body mass index ABOVE the normal limits, and counseling was done. Patient instructed to follow up with PCP. 9-Patient WAS NOT identified as an unhealthy alcohol user.
== END | disposition home or self-care (01) ==
LOC: PNWHC3 12:19
PROVIDERS: ATTEND Anesthesiology
DX: G89.4 Chronic pain syndrome (principal); M47.22 Other spondylosis with radiculopathy, cervical region; M47.816 Spondylosis without myelopathy or radiculopathy, lumbar region; Z79.891 Long term (current) use of opiate analgesic
CPT/HCPCS: 99211

== ENCOUNTER → 2018-06-26 | Day surgery (SDC) | payer BC ==
[2018-06-19 15:19] VITALS: BMI 39.6
[~2018-06-26] MED LIST changes: +LIDOCAINE 1% 20 ML VIAL (10MG/ML) FOR IV START INTRADERMA ONE; -SODIUM CHLORIDE 0.9% 500 ML 500 ML IV SCH
[2018-06-26 06:43] VITALS: RESP 18; TEMP 97.8
--- NOTE | 2018-06-26 07:55 | P.PCN ---
Date of Procedure: 06/26/18 Operative Findings: PREOPERATIVE DIAGNOSIS: Cervical spondylosis M47.812 POSTOPERATIVE DIAGNOSIS: Cervical spondylosis M47.812 PROCEDURES: Radiofrequency thermocoagulation, right C3 4, C4 5, C5 6 ANESTHESIA: Local with 1% lidocaine; IV sedation with fentanyl 100 mcg and Versed 2 mg. EBL: Minimal PROCEDURE INDICATION: The patient with neck pain secondary to cervical arthropathy who had more than 50% relief of her pain with previous diagnostic cervical medial branch block. PROCEDURE DESCRIPTION / TECHNIQUE: The patient was seen and identified in the preoperative area. Risks, benefits, complications, and alternatives were discussed with the patient, the patient agreed to proceed with the procedure and signed the consent. IV was started. Vital signs remained stable throughout the procedure. Patient was taken to the OR and time out was completed. The patient was placed in the prone position on the procedure table. The cervical area was prepped and draped in the usual sterile fashion. Critical pause was taken. Vital signs were closely monitored during the procedure. Conscious sedation was used during the procedure to decrease patient's anxiety. Using cross-table lateral fluoroscopy, the centroid of the trapezoid of C3, C4, C5, and C6 were identified, marked, and localized with 1% lidocaine. Subsequently, a 20 -fj radiofrequency cannula with a 10-mm active tip was advanced guided by fluoroscopy to the centroid of the trapezoid of C3, C4, C5, and C6 . Needle tip position was confirmed at the centroid of the trapezoids of C3, C4, C5, and C6 with anteroposterior fluoroscopy. Each site then underwent sensory testing at 50 Hz and 0 to 1 volt and motor testing at 2 Hz and 0 to 3 volt with local stimulation, but no radicular symptoms down the arm. Thereafter C3, C4,C5 and C6 sites underwent radiofrequency thermocoagulation at 80 degrees celsius for 90 seconds after injecting 0.5 ml of 0.25% ropivacaine. Cannulas were retracted while injecting lidocaine 1% until the needle is out. Skin was cleansed and bandages were applied. COMPLICATIONS: No acute complications. COMMENTS: DISPOSITION / PLANS: The patient was placed in a supine position and transferred to the recovery area in a stable condition for observation and was discharged from the recovery room after meeting discharge criteria. Home discharge instructions given to the patient by the staff. The patient was reexamined prior to discharge. The patient will schedule a follow up in the clinic in 2-4 weeks for medication refill.
[2018-06-26 08:16] VITALS: BP 115/67; PULSE 70
--- NOTE | 2018-06-26 09:22 | FL ---
EXAMINATION TYPE: FL guided pain mgmt statistic DATE OF EXAM: 06/26/2018 HISTORY: Flouroscopy time 48 seconds of fluoroscopy provided. IMPRESSION: 1. Fluoroscopy time.
== END ==
LOC: ORPAIN 06:24
PROVIDERS: ATTEND Hospitalist
DX: G89.4 Chronic pain syndrome (principal); M47.22 Other spondylosis with radiculopathy, cervical region; M47.816 Spondylosis without myelopathy or radiculopathy, lumbar region; Z79.891 Long term (current) use of opiate analgesic; Z79.899 Other long term (current) drug therapy
CPT/HCPCS: 64633; 64634 ×2; J2250; J2001; J3010; 99152; 99153

== ENCOUNTER → 2018-07-10 | Outpatient (CLI) | payer BC ==
[2018-07-10 13:50] VITALS: BP 149/93; PULSE 90; RESP 16
--- NOTE | 2018-07-10 14:15 | P.PN ---
Subjective Progress Note Date: 07/10/18 Chelsey is a 57-year-old female who presents today with chief complaint of neck and low back pain. She is status post radiofrequency ablation of bilateral cervical spine as well as lumbar spine. Since her last visit she reports she has pain all over which is exacerbated recently over the past 2 weeks she is unsure why. Her last visit her mother medications were cut down because she had a significant amount: Her urine. On today's visit she explained that she was drinking a lot in the past and reports that she stop drinking. Her is with her today and he corroborates this story. She says she had 2 drinks over the past 1 week. She reports that she was drinking every day and using her medi cations. She reports she did not know was against a narcotics pulse he. I last visit she was given 30 tablets of [place]. She reports that she also has pain in the right-sided neck or she had the cervical rate of frequency ablation and reports a feeling of a "knot". She denies any new radicular symptoms. Denies any new weakness. Denies any bowel or bladder incontinence. Objective - Exam General: Awake and alert oriented 3 mild distress, obese Respiratory exam: No audible wheezing no accessory muscle usage Cardiovascular exam: regular rate, palpable bilateral pulses, no lower extremity edema Abdominal exam: No distention nontender to palpation Cervical spine: Normal alignment, Spurling's negative, facet loading negative, no palpable knots. Lumbar spine: Loss of lumbar lordosis, normal alignment, tender to palpation over bilateral paraspinal muscles, facet loading is positive bilaterally. Straight leg raise is negative. Sacroiliac joints: Nontender to palpation, GURINDER is negative, [place] negative Neuro exam: Normal sensation in bilateral upper extremities, deep tendon reflexes are 2+ bilateral upper extremities. Normal sensation in bilateral lower extremities. Deep tendon reflexes are 2+ in lower extremities Psych exam: Cooperative, appropriate mood Assessment and Plan Assessment: #1 cervical spondylosis without myelopathy #2 lumbar spondylosis without myelopathy #3 chronic opioid dependence #4 obesity Plan: On today's visit is spent most of time discussing with patient the risks and benefits of using pain medications. I discussed with the risks of using alcohol as well as other benzodiazepines with pain medications. I explained to her and her the severity of the situation and the risks she is facing. I discussed with her that opioids along with any other central nervous system depressants can significantly increase the risk of overdose and . She is wondering if she should trial CBD oil without any THC. I advised her that that would potentially be helpful. I advised the THC along with all his other medications will be harmful to her health and would also be against a narcotics contract and she is in agreement. On today's visit which took another urine sample. We will follow-up on the urine sample on the next visit in 4 weeks. I've given her 45 tablets of [place] 10 mg on today's visit. Time with Patient: Greater than 30
== END | disposition home or self-care (01) ==
LOC: PNWHC3 13:17
PROVIDERS: ATTEND Hospitalist
DX: M47.812 Spondylosis without myelopathy or radiculopathy, cervical region (principal); M47.816 Spondylosis without myelopathy or radiculopathy, lumbar region; E66.9 Obesity, unspecified; F11.20 Opioid dependence, uncomplicated; Z68.39 Body mass index [BMI] 39.0-39.9, adult; Z98.890 Other specified postprocedural states
CPT/HCPCS: 80307; 99211; G0482

== ENCOUNTER → 2018-08-07 | Outpatient (CLI) | payer BC ==
[2018-08-07 13:21] VITALS: BP 132/72; PULSE 100; RESP 16
--- NOTE | 2018-08-07 13:41 | P.PN ---
Progress Note - Text Progress Note Date: 08/07/18 Patient returns for followup for chronic neck pain with radiation to arms and low back pain. She recently underwent both lumbar and cervical radio frequency ablation. Most recent was a left cervical radio frequency ablation of the C4, C5, C6, C7 medial branches. Done two UDS this year which were positive for alcohol. She is adamant after this last one that she has been abstaining from alcohol. We'll repeat another one today. Patient denies adverse drug effects from medications. Today, pt denies new-onset weakness, bowel/bladder incontinence, or any other signs or symptoms of cauda equina syndrome. There are no signs of acute intoxication, and no indications of medication diversion or overuse. In addition to above, 13-point review of systems is also negative for chest pain, shortness of breath, changes in vision, changes in hearing, new onset weakness, abdominal pain, diarrhea, extreme fatigue, malaise, fever, skin changes, homicidal or suicidal ideation, or bowel or bladder incontinence. Vital Signs: Reviewed in EMR Gen: WDWN, AAOx3, NAD HEENT: NCAT, EOMI, hearing grossly normal Pulm: resp unlabored Abd: soft, NT, ND Neck: supple, trachea midline Lumbar facet loading: ++ bilateral, R > L SIJ tenderness: + bilateral Neuro: CN II-XII grossly intact, muscle strength lower extremities PRESERVED Imaging: Reviewed in EMR Assessment: 1. cervical spondylosis without myelopathy 2. cervical radiculopathy 3. chronic pain syndrome 4. lumbar spondylosis without myelopathy Plan: 1. Explanation: Opioid and psychological risk scores were reviewed. Diagnoses, prognoses, and multiple treatment options including but not limited to physical therapy, interventional therapies, adjuvant medical therapies, narcotic medication therapies, and surgery were discussed with the patient and all questions were answered to the patient's satisfaction. 2. Opioid agreement: Patient has previously signed narcotic agreement, and was orally counseled to not overuse, abuse, divert, or cell medications, and to take them as prescribed by only 1 healthcare provider. The patient was also counseled to store opioid medications in a safe and preferably locked location. Patient was also counseled against driving while using narcotic medications and also to not use alcohol or any illicit or recreational drugs. The patient verbalized understanding that lack of compliance with any of the above and likely result in failure to renew narcotic prescriptions, possible discharge from the clinic, and possible legal ramifications thereafter if indicated. 3. Counseling: The patient was counseled extensively on BODY MASS INDEX, EXERCISE. Specifically, the patient was instructed regarding the importance of obesity, and exercise in the context of both chronic pain and overall health. 4. Procedures: none for now 5. Consultations: None 6. Investigations: Maps reviewed and appropriate with patient's history. UDS again was positive for alcohol doing another one today. If positive we will stop writing for opiates. Patient understands this. We discussed her continuous weaning off of benzodiazepines. She's taking one every third day. 7. Medications: [place] 10 mg reduced to #35 with one refill 8. Disposition: Follow-up in 4 weeks PQRS measures: 1-Patient's medications are documented in the chart. 2-Tobacco use is negative. 3-Patient has not had a pneumococcal vaccine. 4-Advanced care planning discussed, patient unable to give. 5-Opioid contract signed with the patient. 6-Pain positive, follow-up visit or procedure scheduled 7-Patient's blood pressure measured and documented, and patient will follow up with the primary care due to hypertension. 8-Patient's weight was measured, and body mass index ABOVE the normal limits, and counseling was done. Patient instructed to follow up with PCP. 9-Patient WAS NOT identified as an unhealthy alcohol user.
== END | disposition home or self-care (01) ==
LOC: PNWHC3 13:07
PROVIDERS: ATTEND Anesthesiology
DX: G89.4 Chronic pain syndrome (principal); M47.22 Other spondylosis with radiculopathy, cervical region; M47.816 Spondylosis without myelopathy or radiculopathy, lumbar region
CPT/HCPCS: 80307; 99211; G0482

== ENCOUNTER → 2018-09-04 | Outpatient (CLI) | payer BC ==
[2018-09-04 12:14] VITALS: BP 157/97; PULSE 100; RESP 16
--- NOTE | 2018-09-04 12:25 | P.PN ---
Subjective Progress Note Date: 09/04/18 This is a 57-year-old female with history of cervical spondylosis without myelopathy and cervical radiculopathy status post multiple injections on the neck with short-lived results. The patient has been using opioids for many years and clinically weak done on her dose of [place] and due to the presence of alcohol and high levels on her urine however the patient has been using alcohol more wisely as she states. Her pain is not well controlled with the current dosage of [place]. Today, pt denies new-onset weakness, bowel/bladder incontinence, or any other signs or symptoms of cauda equina syndrome. There are no signs of acute intoxication, and no indications of medication diversion or overuse. In addition to above, 13-point review of systems is also negative for chest pain, shortness of breath, changes in vision, changes in hearing, new onset weakness, abdominal pain, diarrhea, extreme fatigue, malaise, fever, skin changes, homicidal or suicidal ideation, or bowel or bladder incontinence. Vital Signs: Reviewed in EMR Gen: AAOx3, NAD HEENT: PERRLA,hearing grossly normal Pulm: resp unlabored,CTA Heart:S1,S2, No Mur Neck: supple, trachea midline Neuro exam of the upper extremities: Normal muscle strength and deep tendon reflexes bilaterally and symmetrically. Straight leg raising test: Brown's test: Range of motion of the lumbar spine: Facet loading test: Tenderness in the paravertebral musculature: Positive the cervical paravertebral musculature on the left trapezius muscle She has normal range of motion of the cervical spine with more pain with left rotation Neuro: CN II-XII grossly intact, Imaging: Reviewed in EMR/chart Assessment: Cervical spondylosis without myelopathy Left cervical radiculopathy Opioid dependence Possible alcohol abuse Plan: 1. Explanation: Opioid and psychological risk scores were reviewed. Diagnoses, prognoses, and multiple treatment options including but not limited to physical therapy, interventional therapies, adjuvant medical therapies, narcotic medication therapies, and surgery were discussed with the patient and all questions were answered to the patient's satisfaction. 2. Opioid agreement: Signed with the patient and the patient is warned not to use opioids while driving or before driving and not to combine opioids with benzodiazepines or alcohol. 3. Counseling: The patient was counseled extensively on SMOKING CESSATION, BODY MASS INDEX, EXERCISE. Specifically, the patient was instructed regarding the importance of smoking cessation, obesity, and exercise in the context of both chronic pain and overall health. 4. Procedures: The patient is on oral SOLU-MEDROL AT THIS POINT. No need for any procedures 5. Consultations: None 6. Investigations: None 7. Medications: I will increase [place] to 10 mg twice a day of prescription for 60 pills with no refills. We will repeat her UDS next visit and if she is positive for alcohol we will have to wean her off [place] gradually. 8. Disposition: Return to clinic in 4 weeks 9. Maps were reviewed and were appropriate. PQRS measures: 1-Patient's medications are documented in the chart. 2-Tobacco use is negative, counseling given 3-Patient has had a pneumococcal vaccine. 4-Advanced care planning discussed, patient unable to give 5-Opioid contract signed with the patient. 6-Pain positive, follow-up visit or procedure scheduled 7-Patient's blood pressure measured and documented above normal limits. The patient will follow up with his primary care physician. 8-Patient's weight was measured, and body mass index ABOVE the normal limits, and counseling was done. Patient instructed to follow up with PCP. 9-Patient might be an unhealthy alcohol user. The patient will follow-up with her primary care physician. Controlled Substance Measures Is patient prescribed a controlled substance at discharge?: Yes When asked, does pt state using other controlled substances?: No If prescribed controlled substance>3 days was MAPS reviewed?: Yes If Rx opioid, was Start Talking consent form obtained?: Yes If opioid is for acute pain is fill amount 7 days or less?: No Was information provided regarding opioid addiction?: Yes Objective - Vital Signs Vital signs: Vital Signs Temp Pulse 100 09/04/18 12:09 Resp 16 09/04/18 12:09 BP 157/97 09/04/18 12:09 Pulse Ox 100 09/04/18 12:09 Intake & Output 09/03/18 09/04/18 09/04/18 18:59 06:59 18:59 Weight 97.522 kg
== END | disposition home or self-care (01) ==
LOC: PNWHC3 11:37
PROVIDERS: ATTEND Anesthesiology
DX: M47.22 Other spondylosis with radiculopathy, cervical region (principal); F11.20 Opioid dependence, uncomplicated
CPT/HCPCS: 99211

== ENCOUNTER → 2018-10-02 | Outpatient (CLI) | payer BC ==
[2018-10-02 13:23] VITALS: BP 145/80; PULSE 97; RESP 18
--- NOTE | 2018-10-02 14:14 | P.PAINPG ---
Subjective Progress Note Date: 10/02/18 This is a 57-year-old female with history of cervical spondylosis without myelopathy and cervical radiculopathy status post multiple injections on the neck with short-lived results. The patient has been using opioids for many years. At her last clinic visit on 09/04/2018 her nor cool was increased to 10 mg twice a day and she was provided a prescription for 60 pills with no refills. She has had 2 UDS in the past that were positive for alcohol. She was informed that if subsequent UDS's were positive for alcohol, she would be weaned off narcotics. She returns today for medication management. Her pain is reasonably controlled with the current dosage of [place]. Today, pt denies new-onset weakness, bowel/bladder incontinence, or any other signs or symptoms of cauda equina syndrome. There are no signs of acute intoxication, and no indications of medication diversion or overuse. In addition to above, 13-point review of systems is also negative for chest pain, shortness of breath, changes in vision, changes in hearing, new onset weakness, abdominal pain, diarrhea, extreme fatigue, malaise, fever, skin changes, homicidal or suicidal ideation, or bowel or bladder incontinence. Vital Signs: Reviewed in EMR Gen: AAOx3, NAD HEENT: PERRLA,hearing grossly normal Pulm: resp unlabored Heart: No pedal edema Neck: supple, trachea midline Neuro exam of the upper extremities: Normal muscle strength Tenderness in the paravertebral musculature: Positive the cervical paravertebral musculature on the left trapezius muscle as well as bilateral lumbar paravertebral musculature Neuro: CN II-XII grossly intact, Imaging: No new imaging Assessment: Cervical spondylosis without myelopathy Left cervical radiculopathy Opioid dependence Possible alcohol abuse Plan: 1. Explanation: Opioid and psychological risk scores were reviewed. Diagnoses, prognoses, and multiple treatment options including but not limited to physical therapy, interventional therapies, adjuvant medical therapies, narcotic medication therapies, and surgery were discussed with the patient and all questions were answered to the patient's satisfaction. 2. Opioid agreement: Signed with the patient and the patient is warned not to use opioids while driving or before driving and not to combine opioids with benzodiazepines or alcohol. 3. Counseling: The patient was counseled extensively on alcohol use and its avoidance with concurrent opioid use 4. Procedures: None at this time 5. Consultations: None 6. Investigations: None 7. Medications: [place] 10 mg twice a day refill today #20 with no refills (10 day supply). UDS sent today, once resulted, if appropriate with prescribed medication, we will plan on re-sending thirty-day prescription for [place]. We will repeat her UDS for the next several visits. She was informed that if her UDS is not congruent, we will have to wean her off [place] gradually. 8. Disposition: Return to clinic in 4 weeks 9. Maps were reviewed and appropriate. Objective - Vital Signs Vital signs: Vital Signs Temp Pulse 97 10/02/18 13:15 Resp 18 10/02/18 13:15 BP 145/80 10/02/18 13:15 Pulse Ox 96 10/02/18 13:15 Intake & Output 10/01/18 10/02/18 10/02/18 18:59 06:59 18:59 Weight 95.254 kg PQRS Measure Charge Sheet Measure #130: Documentation of Current Meds in Medical Chart: Patient's medications documented in chart Measure #226: Tobacco Use: Screen & Cessation Intervention: Pt not a tobacco user Measure #111: Pneumonia Vaccination: Pneumococcal vaccine NOT administered or previously given Measure #47: Advance Care Plan: Advance care planning discussed & documented, pt chose/unable to give Measure #412: Opioid Treatment Agreement: Documented signed opioid trtmnt agreemnt min once during opioid trtmnt Measure #408: Opioid Therapy Follow-up Evaluation: Patient had f/u eval minimum every 3 months during opioid therapy Measure #317: Preventitive Care & Scrn High Bld Press & F/U: Normal blood pressure, f/u not required Measure #128: Body Mass Index (BMI) Screening & Follow-up: BMI documented ABOVE normal parameters - f/u documented Measure #131: Pain Assessment & Follow-up: Pain positive & plan documented, Follow-up scheduled Measure #431: Unhealthy Alcohol Use Preventative Care & Scrn: Patient identified as unhealthy alcohol user; counseling given PQRS Narrative: Smoking Status Never smoker Narcotic Agreement Date Signed 11/14/17 Blood Pressure 145/80 Pain Intensity [Lower Back] 5 Scale Used Numeric (1 - 10) Hx Alcohol Use (MH) Yes: "ONE DRINK PER DAY" Home Medications: Ambulatory Orders Ascorbic Acid [Vitamin C] 500 mg PO BID 08/23/14 Ca/D3/Mag/Zinc/Linette/Brad/Mgbor [Caltrate 600+D3+Min Chew Tab] 1 each PO DAILY 08/23/14 Cetirizine HCl [Zyrtec] 10 mg PO DAILY 08/23/14 Lisinopril [Zestril] 40 mg PO DAILY 08/23/14 Methylphenidate HCl [Concerta] 54 mg PO DAILY 08/23/14 Naproxen Sodium [Aleve] 440 mg PO Q12HR 08/23/14 Omeprazole [PriLOSEC] 20 mg PO HS 08/23/14 Vit No.124/Iron/Folic [ Vitamin Tablet] 1 each PO DAILY 08/23/14 Psyllium Husk 100% [Metamucil] 5 cap PO BID 08/23/14 Zolpidem [Ambien] 10 mg PO HS 05/28/15 amLODIPine [Norvasc] 5 mg PO DAILY 05/28/15 Ipratropium/Albuterol Sulfate [Combivent Respimat Inhaler] 1 puff INHALATION DAILY PRN 12/09/15 LORazepam [Ativan] 1 mg PO BID PRN 02/24/16 L.acidoph,Paracasei, B.lactis [Probiotic] 1 each PO BID 03/10/16 Baclofen [Lioresal] 20 mg PO TID PRN 08/26/16 Furosemide [Lasix] 10 mg PO DAILY PRN 11/09/16 Cephalexin [Keflex] 500 mg PO BID 09/04/18 predniSONE 10 mg PO DIRECTED 09/04/18 Hydrocodone/Acetaminophen [[place] 10-325] 1 tab PO BID 10 Days #20 tablet 10/02/18 PARoxetine HCL [Paxil] 2 cap PO DAILY 10/02/18 Controlled Substance Measures - Controlled Substance Measures Is patient prescribed a controlled substance at discharge?: Yes When asked, does pt state using other controlled substances?: No If prescribed controlled substance>3 days was MAPS reviewed?: Yes If Rx opioid, was Start Talking consent form obtained?: Yes If opioid is for acute pain is fill amount 7 days or less?: No Was information provided regarding opioid addiction?: Yes
== END | disposition home or self-care (01) ==
LOC: PNWHC3 13:06
PROVIDERS: ATTEND Anesthesiology
DX: M47.22 Other spondylosis with radiculopathy, cervical region (principal); F11.20 Opioid dependence, uncomplicated; Z79.1 Long term (current) use of non-steroidal anti-inflammatories (NSAID); Z79.51 Long term (current) use of inhaled steroids; Z79.899 Other long term (current) drug therapy; Z79.891 Long term (current) use of opiate analgesic; Z79.2 Long term (current) use of antibiotics
CPT/HCPCS: 80307; 99211; G0482

== ENCOUNTER → 2018-10-25 | Outpatient (CLI) | payer BC ==
--- NOTE | 2018-10-25 16:58 | P.PAINPG ---
Subjective Progress Note Date: 10/25/18 This is a 58-year-old female with history of cervical spondylosis without myelopathy and cervical radiculopathy status post multiple injections on the neck with short-lived results. The patient has been using opioids for many years. At her last clinic visit in early September, we repeated urine drug screen as she has had 2 UDS in the past that were positive for alcohol. At that time, she was informed that if subsequent UDS's were positive for alcohol, she would be weaned off narcotics. She returns today for follow-up. Her UDS done at last visit was also positive for alcohol. Of note, she also takes Ativan and Ambien when necessary. She also takes baclofen 20 mg 3 times a day, prescribed by her PCP. She has undergone gastric bypass in the past, and we will not be able to prescribe NSAIDs due to this. She reports that she has been out of her narcotics for 5 days, and has not gone into withdrawal. In the past, she has tried several different medications with various side effects. Gabapentin and Lyrica both resulted in weight gain, Cymbalta and Flexeril caused her to have hallucinations and be drowsy. She has not tried Topamax before. She is amenable to trying this today. She does not have a history of glaucoma, and has a remote history of a kidney stone over 20 years ago. Today, pt denies new-onset weakness, bowel/bladder incontinence, or any other signs or symptoms of cauda equina syndrome. There are no signs of acute intoxication, and no indications of medication diversion or overuse. In addition to above, 13-point review of systems is also negative for chest pain, shortness of breath, changes in vision, changes in hearing, new onset weakness, abdominal pain, diarrhea, extreme fatigue, malaise, fever, skin changes, homicidal or suicidal ideation, or bowel incontinence. She reports chronic stress incontinence. Physical exam: Vitals: Reviewed in EMR GENERAL: Well appearing, in no acute distress PSYCH: Mood and affect is appropriate. Awake, alert, and oriented SKIN: Skin color, texture, turgor normal, no rashes or lesions HEENT: Normocephalic, atraumatic. EOM intact CV: No pedal edema RESP: Respirations are unlabored, no audible wheezing GI: Abdomen non-distended MUSCULOSKELETAL: Bilateral upper and lower extremity strength is normal and symmetric. No atrophy or tone abnormalities are noted. Neck: Tenderness to palpation over the right cervical paraspinous muscles and right infraspinatus muscle with palpable trigger points. Spurling positive for radicular pain to right elbow, Axial Loading Test negative, Bhatia's sign negative. No pain with neck flexion, extension, or lateral flexion. No obvious deformity or signs of trauma. Normal cervical lordotic curve and normal cervical spine range of motion. Lumbar spine: Straight leg raising in the sitting position is negative for radicular pain. Tenderness to palpation over the right lumbar paraspinous muscles with palpable trigger points. Negative for pain with facet loading and back extension/rotation. Normal range of motion without pain reproduction Buttocks: No pain to palpation over the PSIS, sacroiliac joint maneuvers are negative for pain. Extremities: Peripheral joint ROM is full and pain free without obvious instability or laxity in all four extremities. No edema or skin discolorations noted. Well-healed scar visible over the left knee NEUR: Bilateral upper and lower extremity coordination and muscle stretch reflexes are physiologic and symmetric. Negative clonus bilaterally. No loss of sensation is noted. Imaging: No new imaging Assessment: Cervical spondylosis without myelopathy Left cervical radiculopathy Opioid dependence Possible alcohol abuse Plan: 1.Counseling: The patient was counseled extensively on the importance of exercise, weight loss. An exercise handout was provided to the patient for lumbar stretching and strengthening as well as core strengthening exercises 2. Procedures: Will schedule right cervical paraspinals, right infraspinatus, and right lumbar paraspinal muscle trigger point injections 3. Consultations: None 4. Investigations: None 5. Medications: As discussed at previous visit, we will no longer provide the patient with narcotics. She has been off narcotics for 5 days, and has had no withdrawal signs or symptoms. Today, we will prescribe Topamax 50 mg twice a day. I informed the patient that this could potentially help with weight loss as well. I also asked her to take Tylenol 1 g every 8 hours for pain. 6. Disposition: For above-mentioned procedure Maps was reviewed and appropriate. Objective - Vital Signs Vital signs: Vital Signs Temp Pulse 90 10/25/18 12:45 Resp 16 10/25/18 12:45 BP 143/89 10/25/18 12:45 Pulse Ox 97 10/25/18 12:45 Intake & Output 10/24/18 10/25/18 10/25/18 18:59 06:59 18:59 Weight 95.254 kg PQRS Measure Charge Sheet Measure #130: Documentation of Current Meds in Medical Chart: Patient's medications documented in chart Measure #226: Tobacco Use: Screen & Cessation Intervention: Pt not a tobacco user Measure #111: Pneumonia Vaccination: Pneumococcal vaccine administered or previously received Measure #47: Advance Care Plan: Advance care planning discussed & documented, pt chose/unable to give Measure #317: Preventitive Care & Scrn High Bld Press & F/U: Pre-hypertensive or hypertensive BP documented, pt will f/u with PCP Measure #128: Body Mass Index (BMI) Screening & Follow-up: BMI documented ABOVE normal parameters - f/u documented Measure #131: Pain Assessment & Follow-up: Pain positive & plan documented, Follow-up scheduled Measure #431: Unhealthy Alcohol Use Preventative Care & Scrn: Patient identified as unhealthy alcohol user; counseling given PQRS Narrative: Smoking Status Never smoker Narcotic Agreement Date Signed 11/14/17 Blood Pressure 143/89 Pain Intensity [Right Lower 9 Back] Pain Intensity [Right Neck] 9 Scale Used Numeric (1 - 10) Hx Alcohol Use (MH) Yes: "ONE DRINK PER DAY" Home Medications: Ambulatory Orders Ascorbic Acid [Vitamin C] 500 mg PO BID 08/23/14 Ca/D3/Mag/Zinc/Linette/Brad/Mgbor [Caltrate 600+D3+Min Chew Tab] 1 each PO DAILY 08/23/14 Cetirizine HCl [Zyrtec] 10 mg PO DAILY 08/23/14 Lisinopril [Zestril] 40 mg PO DAILY 08/23/14 Methylphenidate HCl [Concerta] 54 mg PO DAILY 08/23/14 Naproxen Sodium [Aleve] 440 mg PO Q12HR 08/23/14 Omeprazole [PriLOSEC] 20 mg PO HS 08/23/14 Vit No.124/Iron/Folic [ Vitamin Tablet] 1 each PO DAILY 08/23/14 Psyllium Husk 100% [Metamucil] 5 cap PO BID 08/23/14 Zolpidem [Ambien] 10 mg PO HS 05/28/15 amLODIPine [Norvasc] 5 mg PO DAILY 05/28/15 Ipratropium/Albuterol Sulfate [Combivent Respimat Inhaler] 1 puff INHALATION DAILY PRN 12/09/15 LORazepam [Ativan] 1 mg PO BID PRN 02/24/16 L.acidoph,Paracasei, B.lactis [Probiotic] 1 each PO BID 03/10/16 Baclofen [Lioresal] 20 mg PO TID PRN 08/26/16 Furosemide [Lasix] 10 mg PO DAILY PRN 11/09/16 Hydrocodone/Acetaminophen [[place] 10-325] 1 tab PO BID 10 Days #20 tablet 10/02/18 PARoxetine HCL [Paxil] 2 cap PO DAILY 10/02/18 Topiramate [Topamax] 50 mg PO BID #120 tab 10/25/18 Controlled Substance Measures - Controlled Substance Measures Is patient prescribed a controlled substance at discharge?: No
== END | disposition home or self-care (01) ==
CPT/HCPCS: 99211

== ENCOUNTER 2018-10-30 08:07 | Day surgery (SDC) | payer BC ==
[2018-10-26 15:57] VITALS: BMI 37.2
[2018-10-30] MEDS ORDERED: LACTATED RINGERS 1,000 ML IV SCH (08:21)
[2018-10-30 08:38] VITALS: RESP 16
--- NOTE | 2018-10-30 10:34 | P.PCN ---
Date of Procedure: 10/30/18 Procedure(s) Performed: Preoperative Diagnosis: myofascial pain syndrome of cervical paraspinals, rhomboids, trapezius, lumbar paraspinals, infraspinatus on the right side Postoperative diagnosis: Same Anesthesia: Local Surgeon: Celio Cuello MD Indications for procedure: This is a patient with myofascial pain and palpable trigger points in above- mentioned muscles. The patient consents for an injection after an explanation of risks including but not limited to bleeding and infection, benefits, and alternatives and the patient has signed a consent form indicating understanding of all of them. Description of procedure: After informed consent was obtained the patient's back was sterilely prepped in the usual fashion with ChloraPrep. A total of 13 trigger points were identified via palpation of the indicated muscles and marked sterilely. Each trigger point was injected with a 25-gauge half inch needle, with 1 mL of solution consisting of ropivacaine 0.5%. The patient's vital signs were stable afterwards and the procedure was tolerated well. Patient was discharged home with follow-up instructions. Of note, patient states that since she started Topamax, she was having some issues with memory and word finding. She called the clinic week ago and was told to reduced her Topamax dose. I told her to further reduce the dose to half tablet at night for 1 week, then increase to 1 tablet at night for 1 week, then half tab in a.m. 1 tablet at night for 1 week then 1 tablet twice a day. I informed her that often, patients become tolerant to these side effects. Patient expressed understanding.
[2018-10-30 10:57] VITALS: BP 141/84; PULSE 73
[2018-10-30] MEDS ORDERED: IV FLUID CONTINUATION 1,000 ML IV ONE (10:57)
== END 2018-10-30 11:13 | disposition home or self-care (01) ==
LOC: ORPAIN 08:07
PROVIDERS: ATTEND Anesthesiology
DX: M79.18 Myalgia, other site (principal); M47.22 Other spondylosis with radiculopathy, cervical region; N39.3 Stress incontinence (female) (male); F11.20 Opioid dependence, uncomplicated; Z98.84 Bariatric surgery status; Z87.442 Personal history of urinary calculi; Z79.1 Long term (current) use of non-steroidal anti-inflammatories (NSAID); Z79.899 Other long term (current) drug therapy
CPT/HCPCS: 20553

== ENCOUNTER → 2018-11-28 | Outpatient (CLI) | payer BC ==
[2018-11-28 12:40] VITALS: BP 150/99; PULSE 75; RESP 16
--- NOTE | 2018-11-28 13:18 | P.PN ---
Progress Note - Text Progress Note Date: 11/28/18 Patient came today for follow-up visit, reviewing of the urine drug screens results, which showed that patient had extremely high level of alcohol in her urine drug screen, on multiple occasions, patient was told by the nurses staff, that she is discharged from the clinic and we cannot provide her with any prescription for opioid anymore, because of risk of oversedation and overdosing, patient advised, not to use alcohol, patient was not seen by me.
== END | disposition home or self-care (01) ==
LOC: PNWHC3 12:14
PROVIDERS: ATTEND Specialist
DX: R82.5 Elevated urine levels of drugs, medicaments and biological substances (principal)
CPT/HCPCS: 99211

== ENCOUNTER 2019-04-17 13:49 | Emergency (ER) | payer BC ==
[2019-04-17 14:00] VITALS: BP 138/69; PULSE 87; RESP 19; TEMP 98.5
--- NOTE | 2019-04-17 14:44 | ED ---
ENT HPI - General Chief complaint: ENT Stated complaint: vision issues after fall Time Seen by Provider: 04/17/19 14:10 Source: patient, RN notes reviewed Mode of arrival: ambulatory Limitations: no limitations - History of Present Illness Initial comments: This a 58-year-old female presents emergency Department with chief complaint of left eye blurred vision. Patient states that she fell on Tuesday was here [facility] had multiple imaging including CT have neck, x-rays of her right shoulder, right elbow and multiple other imaging. Patient is found to have a right dislocated shoulder right elbow fracture though she was splinted she had multiple lacerations. CT of her head and neck were negative though she has persistent blurred vision from this day. She does admit that she's had 2 prior left eye surgeries. Patient states that she attached retina. Patient states that she had a glasses though she had good vision. Patient denies any periorbital pain. She states that there is no that's all blurry but more dark towards top. Patient does admit that she's had persistent headache and neck pain after a fall. - Related Data Home Medications Medication Instructions Recorded Confirmed Ascorbic Acid [Vitamin C] 500 mg PO BID 08/23/14 11/28/18 Ca/D3/Mag/Zinc/Linette/Brad/Mgbor 1 each PO BID 08/23/14 11/28/18 [Caltrate 600+D3+Min Chew Tab] Cetirizine HCl [Zyrtec] 10 mg PO DAILY 08/23/14 11/28/18 Lisinopril [Zestril] 40 mg PO DAILY 08/23/14 11/28/18 Methylphenidate HCl [Concerta] 54 mg PO DAILY 08/23/14 11/28/18 Naproxen Sodium [Aleve] 440 mg PO Q12HR 08/23/14 11/28/18 Omeprazole [PriLOSEC] 20 mg PO HS 08/23/14 11/28/18 Vit No.124/Iron/Folic 1 each PO DAILY 08/23/14 11/28/18 [ Vitamin Tablet] Psyllium Husk 100% [Metamucil] 5 cap PO BID 08/23/14 11/28/18 Zolpidem [Ambien] 5 mg PO HS 05/28/15 11/28/18 amLODIPine [Norvasc] 10 mg PO DAILY 05/28/15 11/28/18 Ipratropium/Albuterol Sulfate 1 puff INHALATION DAILY PRN 12/09/15 11/28/18 [Combivent Respimat Inhaler] LORazepam [Ativan] 1 mg PO BID PRN 02/24/16 11/28/18 L.acidoph,Paracasei, B.lactis 1 each PO BID 03/10/16 11/28/18 [Probiotic] Baclofen [Lioresal] 20 mg PO TID PRN 08/26/16 11/28/18 Furosemide [Lasix] 10 mg PO DAILY PRN 11/09/16 11/28/18 PARoxetine HCL [Paxil] 60 cap PO DAILY 10/02/18 11/28/18 Cranberry (Unknown Dose) 1 tab PO DAILY 10/26/18 11/28/18 Melatonin 10 mg PO HS 10/26/18 11/28/18 Topiramate [Topamax] 25 mg PO HS 10/26/18 11/28/18 Allergies Allergy/AdvReac Type Severity Reaction Status Date / Time duloxetine [From Cymbalta] Allergy Hallucinati Verified 11/28/18 12:20 ons fluoxetine HCl [From Prozac] Allergy Nausea Verified 11/28/18 12:20 metoclopramide HCl Allergy dystonic Verified 11/28/18 12:20 [From Reglan] reaction, UNABLE TO FOCUS Penicillins Allergy Rash/Hives Verified 11/28/18 12:20 Sulfa (Sulfonamide Allergy Rash/Hives Verified 11/28/18 12:20 Antibiotics) atomoxetine HCl AdvReac Severe Dyspnea Verified 11/28/18 12:20 [From Strattera] topiramate [From Topamax] AdvReac Unknown 50 MG BID- Verified 11/28/18 12:20 SHE COULDNT COMPLETE SENTENCE Review of Systems ROS Statement: Those systems with pertinent positive or pertinent negative responses have been documented in the HPI. ROS Other: All systems not noted in ROS Statement are negative. 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 History of Any Multi-Drug Resistant Organisms: None Reported Past Surgical History: Bariatric Surgery, Hernia Repair, Orthopedic Surgery, Tubal Ligation Additional Past Surgical History / Comment(s): gastric bypass, arthroscopic surgery bilateral knees with lateral ligament releases, umbilical hernia repair with mesh, PAIN CLINIC PROCEDURES, bilateral carpal tunnel surgery.Fx knee repair, R and L cataract surgery., detached retina Past Anesthesia/Blood Transfusion Reactions: Motion Sickness, Postoperative Nausea & Vomiting (PONV) Past Psychological History: Anxiety, Depression, Panic Disorder Smoking Status: Never smoker Past Alcohol Use History: None Reported Past Drug Use History: None Reported - Past Family History Mother Family Medical History: Cancer Additional Family Medical History / Comment(s): BOWEL AND LIVER, General Exam Limitations: no limitations General appearance: alert, in no apparent distress Head exam: Present: atraumatic, normocephalic, normal inspection Eye exam: Present: PERRL, EOMI. Absent: normal appearance (Slight gelatinous growth on the medial aspect), scleral icterus, conjunctival injection, periorbital swelling Expanded Eyelids: Normal Inspection: Bilateral Pupils: Regular, Round: Bilateral (Prior cataractSurgery) Anterior chamber: Normal Inspection: Bilateral Posterior chamber: Hemorrhage: Left (Patient is slight abnormality noted, black speckles noted) Visual acuity (R) = 20/: 50 Visual acuity (L) = 20/: 30 IOP (R) in mmH IOP (L) in mmH IOP measured with: Tonopen ENT exam: Present: normal exam, normal oropharynx, mucous membranes moist Neck exam: Present: normal inspection. Absent: tenderness, meningismus, lymphadenopathy Respiratory exam: Present: normal lung sounds bilaterally. Absent: respiratory distress, wheezes, rales, rhonchi, stridor Cardiovascular Exam: Present: regular rate, normal rhythm, normal heart sounds. Absent: systolic murmur, diastolic murmur, rubs, gallop, clicks GI/Abdominal exam: Present: soft, normal bowel sounds. Absent: distended, tenderness, guarding, rebound, rigid Neurological exam: Present: alert, oriented X3, CN II-XII intact, reflexes normal. Absent: motor sensory deficit Course Vital Signs 04/17/19 13:56 Temperature 98.5 F Pulse Rate 87 Respiratory 19 Rate Blood Pressure 138/69 O2 Sat by Pulse 96 Oximetry Medical Decision Making - Medical Decision Making Case discussed with Dr. Booth ophthalmology who will see the patient in his office now. Patient will be discharged in stable condition for evaluation. Disposition Clinical Impression: Visual changes, Fall, Head injury Disposition: HOME SELF-CARE Condition: Stable Instructions (If sedation given, give patient instructions): Blurred Vision (ED) Additional Instructions: Please return to the Emergency Department if symptoms worsen or any other concerns. Is patient prescribed a controlled substance at d/c from ED?: No Referrals: Cb Kramer MD [Primary Care Provider] - 1-2 days Kvng Booth MD [STAFF PHYSICIAN] - 1-2 days Time of Disposition: 15:35
--- NOTE | 2019-04-17 15:05 | CT ---
EXAMINATION TYPE: CT brain cspine wo con DATE OF EXAM: 04/17/2019 COMPARISON: None HISTORY: trauma, headache, left eye blurry, neck pain CT DLP: 1492.2 mGycm Automated exposure control for dose reduction was used. TECHNIQUE: CT scan of the head and cervical spine are performed without contrast. FINDINGS: There is no acute intracranial hemorrhage, mass effect, or midline shift identified. The ventricles and sulci are within normal limits in size. The globes are intact and the visualized sin uses are clear. Assessment spinal canal is limited due to resolution and artifact. There is multilevel hypertrophic and degenerative changes of the vertebral column with multilevel fac et arthropathy. Paraseptal emphysematous changes involving the lung apices calcified nodule left thyroid measuring 7 mm. Atherosclerotic change of the vasculature. Artifact overlying the left orbit is nonspecific. Loss of the normal cervical lordosis is seen with multilevel degenerative disc disease most marked fi ndings seen at C5-6 and C6-C7 multilevel facet arthropathy. IMPRESSION: 1. There is no acute fracture or dislocation evident in the cervical spine. Multilevel hypertrophic a nd degenerative disc disease with most marked findings at C5-C6. Reversal of the cervical lordosis is nonspecific and be seen with muscular spasm correlate clinically. Canal stenosis C5-C6 not excluded correlate with MRI. 2. No acute intracranial hemorrhage, mass effect, or midline shift is seen.
== END 2019-04-17 15:39 | disposition home or self-care (01) ==
LOC: EC 13:49
DX: S09.90XA Unspecified injury of head, initial encounter (principal); H53.8 Other visual disturbances; I10 Essential (primary) hypertension; K21.9 Gastro-esophageal reflux disease without esophagitis; F32.9 Major depressive disorder, single episode, unspecified; F41.0 Panic disorder [episodic paroxysmal anxiety]; Z79.1 Long term (current) use of non-steroidal anti-inflammatories (NSAID); Z79.899 Other long term (current) drug therapy; Z88.0 Allergy status to penicillin; Z88.2 Allergy status to sulfonamides; Z88.8 Allergy status to other drugs, medicaments and biological substances; Z98.84 Bariatric surgery status; W19.XXXA Unspecified fall, initial encounter
CPT/HCPCS: 70450; 72125; 99284

== ENCOUNTER 2020-07-31 21:04 | Inpatient (IN) | payer BC ==
[2020-07-31] MEDS ORDERED: SODIUM CHLORIDE 0.9% 1,000 ML IV STA (21:42)
--- NOTE | 2020-07-31 22:26 | CT ---
EXAMINATION TYPE: CT brain wo con DATE OF EXAM: 07/31/2020 COMPARISON: 04/17/2019 HISTORY: Seizure activity CT DLP: 1129.4 mGycm Automated exposure control for dose reduction was used. Ventricles have normal size. There is no mass effect nor midline shift. There is no sign of intracran ial hemorrhage. The calvarium is intact. Skull base is intact. IMPRESSION: Negative unenhanced head CT scan. No change.
--- NOTE | 2020-07-31 22:30 | XR ---
EXAMINATION TYPE: XR shoulder limited RT DATE OF EXAM: 07/31/2020 COMPARISON: NONE HISTORY: Pain TECHNIQUE: 2 views FINDINGS: I see no fracture nor dislocation. Joint spaces are normal. AC joint is intact. There are n o pathologic calcifications at the greater tuberosity. Exam limited by positioning. IMPRESSION: Negative limited right shoulder exam.
[2020-07-31 22:44] LABS: Basophils # (A) 0.1 k/uL (0-0.2); Basophils % (A) 1 %; Eosinophils # (A) 0.3 k/uL (0-0.7); Eosinophils % (A) 4 %; HCT 37.5 % (34.0-46.0); HGB 11.9 gm/dL (11.4-16.0); Lymphocytes # (A) 1.2 k/uL (1.0-4.8); Lymphocytes % (A) 15 %; MCH 34.5 pg (25.0-35.0); MCHC 31.8 g/dL (31.0-37.0); MCV 108.7 fL (80.0-100.0); Macrocytosis Marked; Mean Platelet Volume 7.3; Monocytes # (A) 0.4 k/uL (0-1.0); Monocytes % (A) 6 %; Neutrophils # (A) 5.6 k/uL (1.3-7.7); Neutrophils % (A) 74 %; Platelet Count 215 k/uL (150-450); RBC 3.45 m/uL (3.80-5.40); RDW 13.4 % (11.5-15.5); WBC 7.7 k/uL (3.8-10.6)
[2020-07-31 23:05] LABS: ALT 14 U/L (4-34); AST 67 U/L (14-36); Acetaminophen <10.0 ug/mL; African American GFR (CKD) 75 (>60 ml/min/1.73 sqM); Albumin 3.9 g/dL (3.5-5.0); Alcohol <10 mg/dL; Alkaline Phosphatase 164 U/L (38-126); Anion Gap 3 mmol/L; Blood Urea Nitrogen 26 mg/dL (7-17); Calcium 9.4 mg/dL (8.4-10.2); Carbon Dioxide 31 mmol/L (22-30); Chloride 104 mmol/L (98-107); Glucose 90 mg/dL (74-99); Magnesium 2.1 mg/dL (1.6-2.3); Non-African American GFR(CKD) 65 (>60 ml/min/1.73 sqM); Phosphorus 4.1 mg/dL (2.5-4.5); Potassium 4.5 mmol/L (3.5-5.1); Salicylate <1.0 mg/dL; Sodium 138 mmol/L (137-145); Total Bilirubin 0.6 mg/dL (0.2-1.3); Total Protein 6.6 g/dL (6.3-8.2)
--- NOTE | 2020-07-31 23:08 | ED ---
Recheck HPI - General Chief Complaint: Recheck/Abnormal Lab/Rx Stated Complaint: Seizure Time Seen by Provider: 07/31/20 21:32 Source: patient, family, RN notes reviewed, old records reviewed Mode of arrival: wheelchair Limitations: no limitations - History of Present Illness Initial Comments: This is a 59-year-old male presents today for evaluation regards to overall not feeling well. Patient has history of drug abuse both prescription and alcohol. Patient did have to seizure-like activities prior to arrival. Patient presents by EMS for seizure. No recent travel history or sick contacts. Patient has been not feeling well for about 2 days and stopped drinking about 2 days ago MD Complaint: other (Patient does have alcohol withdrawal seizure) -: minutes(s) Returns Today for: persistent/worsening pain related to initial visit Symptoms Since Prior Visit: no new symptoms Associated Symptoms: none Treatments Prior to Arrival: Given Pain Meds on - Related Data Home Medications Medication Instructions Recorded Confirmed lisinopriL [Zestril] 40 mg PO DAILY 08/23/14 07/31/20 Zolpidem [Ambien] 10 mg PO HS 05/28/15 07/31/20 amLODIPine [Norvasc] 5 mg PO DAILY 05/28/15 07/31/20 LORazepam [Ativan] 1 mg PO DAILY PRN 02/24/16 07/31/20 Baclofen [Lioresal] 20 mg PO TID PRN 08/26/16 07/31/20 PARoxetine HCL [Paxil] 60 cap PO DAILY 10/02/18 07/31/20 Ascorbic Acid [Vitamin C] 1,000 mg PO DAILY 07/31/20 07/31/20 Cyanocobalamin (Vitamin B-12) 1,000 mcg PO DAILY 07/31/20 07/31/20 [Vitamin B-12] Dextroamphetamine/Amphetamine 30 mg PO DAILY 07/31/20 07/31/20 [Adderall Xr] Furosemide [Lasix] 20 mg PO DAILY 07/31/20 07/31/20 HYDROcodone/APAP 7.5-325MG [[place] 1 tab PO TID PRN 07/31/20 07/31/20 7.5-325] Multivitamins, Thera [Multivitamin 1 tab PO DAILY 07/31/20 07/31/20 (formulary)] Naproxen 500 mg PO BID PRN 07/31/20 07/31/20 Prednisolone Acetate/Pf 1 drop LEFT EYE BID 07/31/20 07/31/20 [Prednisolone Acet 1% Eye Drop] Sodium Chloride 5% Ophth Soln 1 drop LEFT EYE TID 07/31/20 07/31/20 [[place] 128] Thiamine [Vitamin B-1] 100 mg PO DAILY 07/31/20 07/31/20 Allergies Allergy/AdvReac Type Severity Reaction Status Date / Time duloxetine [From Cymbalta] Allergy Hallucinati Verified 07/31/20 23:27 ons fluoxetine HCl [From Prozac] Allergy Nausea Verified 07/31/20 23:27 metoclopramide HCl Allergy dystonic Verified 07/31/20 23:27 [From Reglan] reaction, UNABLE TO FOCUS Penicillins Allergy Rash/Hives Verified 07/31/20 23:27 Sulfa (Sulfonamide Allergy Rash/Hives Verified 07/31/20 23:27 Antibiotics) atomoxetine HCl AdvReac Severe Dyspnea Verified 07/31/20 23:27 [From Strattera] topiramate [From Topamax] AdvReac Unknown 50 MG BID- Verified 07/31/20 23:27 SHE COULDNT COMPLETE SENTENCE Review of Systems ROS Statement: Those systems with pertinent positive or pertinent negative responses have been documented in the HPI. ROS Other: All systems not noted in ROS Statement are negative. 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 History of Any Multi-Drug Resistant Organisms: None Reported Past Surgical History: Bariatric Surgery, Hernia Repair, Orthopedic Surgery, Tubal Ligation Additional Past Surgical History / Comment(s): gastric bypass, arthroscopic brea andre bilateral knees with lateral ligament releases, umbilical hernia repair with mesh, PAIN CLINIC PROCEDURES, bilateral carpal tunnel surgery.Fx knee repair, R and L cataract surgery., detached retina Past Anesthesia/Blood Transfusion Reactions: Motion Sickness, Postoperative Nausea & Vomiting (PONV) Past Psychological History: Anxiety, Depression, Panic Disorder Smoking Status: Never smoker Past Alcohol Use History: Abuse Past Drug Use History: None Reported - Past Family History Mother Family Medical History: Cancer Additional Family Medical History / Comment(s): BOWEL AND LIVER, General Exam Limitations: no limitations General appearance: alert, in no apparent distress Head exam: Present: atraumatic, normocephalic, normal inspection Eye exam: Present: normal appearance, PERRL, EOMI. Absent: scleral icterus, conjunctival injection, periorbital swelling ENT exam: Present: normal exam, mucous membranes moist Neck exam: Present: normal inspection. Absent: tenderness, meningismus, lymphadenopathy Respiratory exam: Present: normal lung sounds bilaterally. Absent: respiratory distress, wheezes, rales, rhonchi, stridor Cardiovascular Exam: Present: regular rate, normal rhythm, normal heart sounds. Absent: systolic murmur, diastolic murmur, rubs, gallop, clicks GI/Abdominal exam: Present: soft, normal bowel sounds. Absent: distended, tenderness, guarding, rebound, rigid Extremities exam: Present: normal inspection, full ROM, normal capillary refill. Absent: tenderness, pedal edema, joint swelling, calf tenderness Back exam: Present: normal inspection Neurological exam: Present: alert, oriented X3, CN II-XII intact Psychiatric exam: Present: normal affect, normal mood Skin exam: Present: warm, dry, intact, normal color. Absent: rash Course Vital Signs 07/31/20 08/01/20 08/01/20 21:10 00:10 01:10 Temperature 98.8 F Pulse Rate 90 86 88 Respiratory 20 18 18 Rate Blood Pressure 139/73 121/81 135/89 O2 Sat by Pulse 99 100 98 Oximetry - Reevaluation(s) Reevaluation #1: Medical record is reviewed Patient symptoms are significantly improved here in the ER Patient informed of results and questions are answered Medical Decision Making - Medical Decision Making 59 female to the ER for evaluation patient has recurrent seizure secondary to alcohol withdrawal. Patient has severe alcohol withdrawal seizures and will be admitted for seizure control - Lab Data Result diagrams: 07/31/20 22:28 07/31/20 22:28 Lab Results 07/31/20 07/31/20 07/31/20 Range/Units 22:28 22:28 22:28 WBC 7.7 (3.8-10.6) k/uL RBC 3.45 L (3.80-5.40) m/uL Hgb 11.9 (11.4-16.0) gm/dL Hct 37.5 (34.0-46.0) % MCV 108.7 H (80.0-100.0) fL MCH 34.5 (25.0-35.0) pg MCHC 31.8 (31.0-37.0) g/dL RDW 13.4 (11.5-15.5) % Plt Count 215 (150-450) k/uL MPV 7.3 Neutrophils % 74 % Lymphocytes % 15 % Monocytes % 6 % Eosinophils % 4 % Basophils % 1 % Neutrophils # 5.6 (1.3-7.7) k/uL Lymphocytes # 1.2 (1.0-4.8) k/uL Monocytes # 0.4 (0-1.0) k/uL Eosinophils # 0.3 (0-0.7) k/uL Basophils # 0.1 (0-0.2) k/uL Macrocytosis Marked A Sodium 138 (137-145) mmol/L Potassium 4.5 (3.5-5.1) mmol/L Chloride 104 (98-107) mmol/L Carbon Dioxide 31 H (22-30) mmol/L Anion Gap 3 mmol/L BUN 26 H (7-17) mg/dL Creatinine 0.96 (0.52-1.04) mg/dL Est GFR (CKD-EPI)AfAm 75 (>60 ml/min/1.73 sqM) Est GFR (CKD-EPI)NonAf 65 (>60 ml/min/1.73 sqM) Glucose 90 (74-99) mg/dL Calcium 9.4 (8.4-10.2) mg/dL Phosphorus 4.1 (2.5-4.5) mg/dL Magnesium 2.1 (1.6-2.3) mg/dL Total Bilirubin 0.6 (0.2-1.3) mg/dL AST 67 H (14-36) U/L ALT 14 (4-34) U/L Alkaline Phosphatase 164 H (38-126) U/L Total Protein 6.6 (6.3-8.2) g/dL Albumin 3.9 (3.5-5.0) g/dL Urine Color Yellow Urine Appearance Cloudy H (Clear) Urine pH 6.0 (5.0-8.0) Ur Specific [place] 1.018 (1.001-1.035) Urine Protein Negative (Negative) Urine Glucose (UA) Negative (Negative) Urine Ketones Negative (Negative) Urine Blood Negative (Negative) Urine Nitrite Positive H (Negative) Urine Bilirubin Negative (Negative) Urine Urobilinogen <2.0 (<2.0) mg/dL Ur Leukocyte Esterase Large H (Negative) Urine RBC <1 (0-5) /hpf Urine WBC 28 H (0-5) /hpf Urine WBC Clumps Rare H (None) /hpf Ur Squamous Epith Cells <1 (0-4) /hpf Urine Bacteria Rare H (None) /hpf Hyaline Casts 16 H (0-2) /lpf Urine Mucus Rare H (None) /hpf Salicylates <1.0 mg/dL Urine Opiates Screen Detected H (NotDetected) Ur Oxycodone Screen Not Detected (NotDetected) Urine Methadone Screen Not Detected (NotDetected) Ur Propoxyphene Screen Not Detected (NotDetected) Acetaminophen <10.0 ug/mL Ur Barbiturates Screen Not Detected (NotDetected) U Tricyclic Antidepress Not Detected (NotDetected) Ur Phencyclidine Scrn Not Detected (NotDetected) Ur Amphetamines Screen Not Detected (NotDetected) U Methamphetamines Scrn Not Detected (NotDetected) U Benzodiazepines Scrn Detected H (NotDetected) Urine Cocaine Screen Not Detected (NotDetected) U Marijuana (THC) Screen Not Detected (NotDetected) Serum Alcohol <10 mg/dL - EKG Data -: EKG Interpreted by Me (EKG is sinus rhythm 84, MI 146 QRS 74 QTC 482) - Radiology Data Radiology results: report reviewed (CT brain and chest x-ray negative for acute disease headache and), image reviewed Disposition Clinical Impression: Seizure, UTI (urinary tract infection), Alcohol withdrawal Disposition: ADMITTED IP TO THIS [facility] Condition: Fair Is patient prescribed a controlled substance at d/c from ED?: No
[2020-07-31 23:45] LABS: Appearance,Urine Cloudy (Clear); Bacteria,Urine Rare /hpf; Bilirubin,Urine Negative (Negative); Blood,Urine Negative (Negative); Color,Urine Yellow; Glucose,Urine (UA) Negative (Negative); Hyaline Casts,Urine 16 /lpf (0-2); Ketones,Urine Negative (Negative); Leukocyte Esterase,Urine Large (Negative); Mucus,Urine Rare /hpf; Nitrite,Urine Positive (Negative); Protein,Urine Negative (Negative); RBC,Urine <1 /hpf (0-5); Specific Gravity,Urine 1.018 (1.001-1.035); Squamous Epithelial Cell,Urine <1 /hpf (0-4); Urobilinogen,Urine <2.0 mg/dL (<2.0); WBC,Urine 28 /hpf (0-5)
[2020-08-01 00:04] LABS: Amphetamine Screen,Urine Not Detected (NotDetected); Barbiturate Screen,Urine Not Detected (NotDetected); Benzodiazepines Screen,Urine Detected (NotDetected); Cocaine Screen,Urine Not Detected (NotDetected); Methadone Screen, Urine Not Detected (NotDetected); Opiate Screen,Urine Detected (NotDetected); Oxycodone Screen, Urine Not Detected (NotDetected); Phencyclidine Screen,Urine Not Detected (NotDetected); Tricyclic Antidepressant,Urine Not Detected (NotDetected); Urn Cannabinoid Scrn Not Detected (NotDetected)
[2020-08-01] MEDS ORDERED: THIAMINE 100 MG/ML 2 ML VIAL IM STA (00:08)
[2020-08-01] MEDS ORDERED: DIAZEPAM 5 MG/ML 2 ML INJ IVP STA (00:08)
[2020-08-01] MEDS ORDERED: levETIRAcetam IV 1,500 MG in SALINE 1 100ML.BAG IVPB STA (00:08)
[2020-08-01] MEDS ORDERED: LORazepam 2 MG/ML INJ IV PRN ×3 (00:08)
[2020-08-01] MEDS ORDERED: MORPHINE SULFATE 4 MG/ML SYRINGE IVP PRN (00:11)
[2020-08-01] MEDS ORDERED: MORPHINE SULFATE 4 MG/ML SYRINGE IVP STA (00:11)
[2020-08-01] MEDS: DEXTROSE 5%-0.45% NACL 1,000 ML IV SCH ×2 (00:27→23:13)
[2020-08-01] MEDS: MULTIVITAMINS, THERA 1 EACH TAB PO SCH (09:31)
[2020-08-01] MEDS ORDERED: BACLOFEN 10 MG TAB PO PRN (11:25)
[2020-08-01] MEDS ORDERED: MULTIVITAMINS, THERA 1 EACH TAB PO SCH (11:30)
[2020-08-01] MEDS: NON FORMULARY DRUG (Dextroamphetamine/Amphetamine [Adderall Xr] 30 MG Cap.Er.24h) PO SCH (13:05)
[2020-08-01] MEDS: THIAMINE 100 MG TAB PO SCH ×2 (13:50→16:59)
[2020-08-01] MEDS: NAPROXEN 250 MG TAB PO SCH ×3 (13:50→23:07)
[2020-08-01] MEDS: ENOXAPARIN 40 MG/0.4 ML SYRINGE SQ SCH (13:50)
[2020-08-01] MEDS: lisinopriL 20 MG TAB PO SCH (13:51)
[2020-08-01] MEDS: PARoxetine 20 MG TAB PO SCH (13:51)
[2020-08-01] MEDS: diazePAM 5 MG TAB PO SCH ×3 (13:51→22:04)
[2020-08-01] MEDS: ASCORBIC ACID 500 MG TAB PO SCH (13:51)
[2020-08-01] MEDS: BACITRACIN ZINC 500 UNIT/GM OINT 28.4 GM TUBE TOPICAL SCH ×3 (13:51→21:20)
[2020-08-01] MEDS: FAMOTIDINE 20 MG TAB PO SCH ×2 (13:52→21:20)
--- NOTE | 2020-08-01 13:52 | XR ---
EXAMINATION TYPE: XR foot limited LT DATE OF EXAM: 08/01/2020 COMPARISON: NONE HISTORY: Pain TECHNIQUE: 3 views FINDINGS: There is plantar calcaneal spurring. There is nondisplaced fracture of the proximal phalanx of the big toe left foot. Fracture is transverse and longitudinal and extends apparently to the MP j oints. There is no dislocation. There is some spurring at the PIP joint of the third toe. The metatar sals are intact. IMPRESSION: Acute nondisplaced fracture of the proximal phalanx. Toe left foot.
[2020-08-01] MEDS: prednisoLONE ACETATE 1% OPHTH DROPS 5 ML BTL LEFT EYE SCH ×2 (13:56→21:20)
[2020-08-01] MEDS: CYANOCOBALAMIN 500 MCG TAB PO SCH (13:56)
[2020-08-01] MEDS: SODIUM CHLORIDE 5% OPHTH DROPS 15 ML BTL LEFT EYE SCH ×3 (13:56→22:04)
[2020-08-01] MEDS: levETIRAcetam IV 750 MG in SODIUM CHLORIDE 0.9% 100 ML IVPB SCH (14:33)
[2020-08-01] MEDS: HYDROcodone/APAP 7.5-325MG 1 EACH TAB PO PRN (14:38)
--- NOTE | 2020-08-01 15:57 | P.HPIM ---
History of Present Illness H&P Date: 08/01/20 Chief Complaint: Seizure History of presenting complaint: This is a 59-year-old patient, follows with Dr. Kramer. Chronic stable medical conditions include GERD, hypertension, osteoarthritis, history of head 3 2007 with residual short-term memory loss, history of TB skin test with INH treatment in 2002. Chronic back and neck pain for which she follows with pain management with Dr. Olivo. Patient been drinking alcohol for a long time. She was drinking yesterday. She does not remember the details of what happened. She has not so far. Apparently she has a seizure and fell down. Her dog called her . And patient was brought in. Patient did bite her tongue. She never had seizures before. She also kicked her closet door and a left total has been hurting since then. Rather tender. 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 She drinks normally about wine a day but apparently yesterday she drank half a gallon of [employer] [place]. Physical examination: VITAL SIGNS: 98.5, 82, 16, 137/83, 98% room air GENERAL: BMI 34.2, laying in bed, tired. EYES: Pupils equal. Conjunctiva normal. HEENT: External appearance of nose and ears normal, oral cavity-tongue bite on the anterior lateral side . NECK: JVD not raised; masses not palpable. HEART: First and second heart sounds are normal; no edema. LUNGS: Respiratory rate normal; clear to auscultation. ABDOMEN: Soft, nontender, liver spleen not palpable, no masses palpable. PSYCH: [Alert and oriented x3; mood and affect anxious MUSCULAR skeletal: Left big toe, tender increased local temperature superficial wound, limited range of motion l. NEUROLOGICAL: Cranial nerves grossly intact; no facial asymmetry, power and sensation grossly intact. LYMPHATICS: No lymph nodes palpable in the axilla and neck INVESTIGATIONS, reviewed in the clinical context: WBC 7.7 hemoglobin 11.9 platelets 215 potassium 4.5 creatinine 0.96 AST 67 ALT 14 UA positive for leukoesterase, WBC Urine drug screen positive for opiates, benzodiazepine Serum alcohol less than 10 Coronavirus [PCR]-not detected EKG tracing personally reviewed by me-normal sinus rhythm, prolonged QT X-ray showed a right: Negative Computed tomography scan of the brain without contrast: Negative X-ray of the left foot Limited: Acute nondisplaced fracture of the proximal phalanx Assessment and plan: -New onset of seizure activity secondary to alcoholism. Patient has no prior history of seizure. The patient did have a head injury in 2007. Neurology consulted. Neuro checks. Seizure precautions -Alcohol use disorder Patient on Thiamine. Valium for DT prophylaxis. CIWA scale -GERD Continue Pepcid -Essential hypertension Continue Zestril. Hold on Norvasc for now -Left foot proximal phalanx fracture secondary to local trauma Fractured toe can be taped to the adjacent toe. Decreased mobility. Orthopedics consulted -Chronic insomnia Continue with Ambien, decreased dose -Chronic constipation Add fiber -Chronic anxiety disorder Continue Paxil Care was discussed with the patient. Questions answered. Neurology consulted. 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 History of Any Multi-Drug Resistant Organisms: None Reported Past Surgical History: Bariatric Surgery, Hernia Repair, Orthopedic Surgery, Tubal Ligation Additional Past Surgical History / Comment(s): gastric bypass, arthroscopic surgery bilateral knees with lateral ligament releases, umbilical hernia repair with mesh, PAIN CLINIC PROCEDURES, bilateral carpal tunnel surgery.Fx knee repair, R and L cataract surgery., detached retina Past Anesthesia/Blood Transfusion Reactions: Motion Sickness, Postoperative Nausea & Vomiting (PONV) Past Psychological History: Anxiety, Depression, Panic Disorder Smoking Status: Never smoker Past Alcohol Use History: Abuse Additional Past Alcohol Use History / Comment(s): pt states she drinks maybe a bottle of wine a day but states her told her she drank a bottle of [place] yesterday Past Drug Use History: None Reported - Past Family History Mother Family Medical History: Cancer Additional Family Medical History / Comment(s): BOWEL AND LIVER, Medications and Allergies Home Medications Medication Instructions Recorded Confirmed Type lisinopriL [Zestril] 40 mg PO DAILY 08/23/14 07/31/20 History Zolpidem [Ambien] 10 mg PO HS 05/28/15 07/31/20 History amLODIPine [Norvasc] 5 mg PO DAILY 05/28/15 07/31/20 History LORazepam [Ativan] 1 mg PO DAILY PRN 02/24/16 07/31/20 History Baclofen [Lioresal] 20 mg PO TID PRN 08/26/16 07/31/20 History PARoxetine HCL [Paxil] 60 cap PO DAILY 10/02/18 07/31/20 History Ascorbic Acid [Vitamin C] 1,000 mg PO DAILY 07/31/20 07/31/20 History Cyanocobalamin (Vitamin B-12) 1,000 mcg PO DAILY 07/31/20 07/31/20 History [Vitamin B-12] Dextroamphetamine/Amphetamine 30 mg PO DAILY 07/31/20 07/31/20 History [Adderall Xr] Furosemide [Lasix] 20 mg PO DAILY 07/31/20 07/31/20 History HYDROcodone/APAP 7.5-325MG [[place] 1 tab PO TID PRN 07/31/20 07/31/20 History 7.5-325] Multivitamins, Thera [Multivitamin 1 tab PO DAILY 07/31/20 07/31/20 History (formulary)] Naproxen 500 mg PO BID PRN 07/31/20 07/31/20 History Prednisolone Acetate/Pf 1 drop LEFT EYE BID 07/31/20 07/31/20 History [Prednisolone Acet 1% Eye Drop] Sodium Chloride 5% Ophth Soln 1 drop LEFT EYE TID 07/31/20 07/31/20 History [[place] 128] Thiamine [Vitamin B-1] 100 mg PO DAILY 07/31/20 07/31/20 History Allergies Allergy/AdvReac Type Severity Reaction Status Date / Time duloxetine [From Cymbalta] Allergy Hallucinati Verified 07/31/20 23:27 ons fluoxetine HCl [From Prozac] Allergy Nausea Verified 07/31/20 23:27 metoclopramide HCl Allergy dystonic Verified 07/31/20 23:27 [From Reglan] reaction, UNABLE TO FOCUS Penicillins Allergy Rash/Hives Verified 07/31/20 23:27 Sulfa (Sulfonamide Allergy Rash/Hives Verified 07/31/20 23:27 Antibiotics) atomoxetine HCl AdvReac Severe Dyspnea Verified 07/31/20 23:27 [From Strattera] topiramate [From Topamax] AdvReac Unknown 50 MG BID- Verified 07/31/20 23:27 SHE COULDNT COMPLETE SENTENCE Physical Exam Vitals: Vital Signs Temp Pulse Pulse Resp BP BP Pulse Ox 08/01/20 02:30 16 08/01/20 02:00 98.5 F 82 16 137/83 98 08/01/20 01:10 88 18 135/89 98 08/01/20 00:10 86 18 121/81 100 07/31/20 21:10 98.8 F 90 20 139/73 99 Intake and Output 07/31/20 08/01/20 08/01/20 22:59 06:59 14:59 Intake Total 250 Balance 250 Intake: Oral 250 Other: # Bowel Movements 1 Weight 89.086 kg 89.086 kg Results CBC & Chem 7: 07/31/20 22:28 07/31/20 22:28 Labs: Abnormal Lab Results - Last 24 Hours (Table) 07/31/20 07/31/20 07/31/20 Range/Units 22:28 22:28 22:28 RBC 3.45 L (3.80-5.40) m/uL MCV 108.7 H (80.0-100.0) fL Macrocytosis Marked A Carbon Dioxide 31 H (22-30) mmol/L BUN 26 H (7-17) mg/dL AST 67 H (14-36) U/L Alkaline Phosphatase 164 H (38-126) U/L Urine Appearance Cloudy H (Clear) Urine Nitrite Positive H (Negative) Ur Leukocyte Esterase Large H (Negative) Urine WBC 28 H (0-5) /hpf Urine WBC Clumps Rare H (None) /hpf Urine Bacteria Rare H (None) /hpf Hyaline Casts 16 H (0-2) /lpf Urine Mucus Rare H (None) /hpf Urine Opiates Screen Detected H (NotDetected) U Benzodiazepines Scrn Detected H (NotDetected) Thrombosis Risk Factor Assmnt - Choose All That Apply Each Factor Represents 1 point: Age 41-60 years, Obesity (BMI >25) Thrombosis Risk Factor Assessment Total Risk Factor Score: 2 Thrombosis Risk Factor Assessment Level: Low Risk
--- NOTE | 2020-08-01 17:26 | P.CNOR ---
History of Present Illness - [facility] Consult date: 08/01/20 Requesting physician: Tera Campo Consult reason: other (left big toe, possible break) History of present illness: Chelsey is a 59-year-old female with a complex medical history and history of alcoholism who presents to the hospital following an apparent seizure. She says she follows with Dr. Baptiste for chronic back and neck pain. She says she has been drinking alcohol for a long time. She says about 1 week ago she hit her left big toe on something at her house that she cannot remember. Ever since then her toe is bothering her. She says it is very tender to touch. She is not able to extend or flex her left great toe. She mentions she is in a lot of pain whenever she walks on it. She said right away of a blister formed on top of her toe. Patient denies any fever, chills, chest pain, shortness of breath, change in vision. Patient denies any saddle paresthesia. 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 History of Any Multi-Drug Resistant Organisms: None Reported Past Surgical History: Bariatric Surgery, Hernia Repair, Orthopedic Surgery, Tubal Ligation Additional Past Surgical History / Comment(s): gastric bypass, arthroscopic surgery bilateral knees with lateral ligament releases, umbilical hernia repair with mesh, PAIN CLINIC PROCEDURES, bilateral carpal tunnel surgery.Fx knee repair, R and L cataract surgery., detached retina Past Anesthesia/Blood Transfusion Reactions: Motion Sickness, Postoperative Nausea & Vomiting (PONV) Past Psychological History: Anxiety, Depression, Panic Disorder Smoking Status: Never smoker Past Alcohol Use History: Abuse Additional Past Alcohol Use History / Comment(s): pt states she drinks maybe a bottle of wine a day but states her told her she drank a bottle of [place] yesterday Past Drug Use History: None Reported - Past Family History Mother Family Medical History: Cancer Additional Family Medical History / Comment(s): BOWEL AND LIVER, Medications and Allergies Home Medications Medication Instructions Recorded Confirmed Type lisinopriL [Zestril] 40 mg PO DAILY 08/23/14 07/31/20 History Zolpidem [Ambien] 10 mg PO HS 05/28/15 07/31/20 History amLODIPine [Norvasc] 5 mg PO DAILY 05/28/15 07/31/20 History LORazepam [Ativan] 1 mg PO DAILY PRN 02/24/16 07/31/20 History Baclofen [Lioresal] 20 mg PO TID PRN 08/26/16 07/31/20 History PARoxetine HCL [Paxil] 60 cap PO DAILY 10/02/18 07/31/20 History Ascorbic Acid [Vitamin C] 1,000 mg PO DAILY 07/31/20 07/31/20 History Cyanocobalamin (Vitamin B-12) 1,000 mcg PO DAILY 07/31/20 07/31/20 History [Vitamin B-12] Dextroamphetamine/Amphetamine 30 mg PO DAILY 07/31/20 07/31/20 History [Adderall Xr] Furosemide [Lasix] 20 mg PO DAILY 07/31/20 07/31/20 History HYDROcodone/APAP 7.5-325MG [[place] 1 tab PO TID PRN 07/31/20 07/31/20 History 7.5-325] Multivitamins, Thera [Multivitamin 1 tab PO DAILY 07/31/20 07/31/20 History (formulary)] Naproxen 500 mg PO BID PRN 07/31/20 07/31/20 History Prednisolone Acetate/Pf 1 drop LEFT EYE BID 07/31/20 07/31/20 History [Prednisolone Acet 1% Eye Drop] Sodium Chloride 5% Ophth Soln 1 drop LEFT EYE TID 07/31/20 07/31/20 History [[place] 128] Thiamine [Vitamin B-1] 100 mg PO DAILY 07/31/20 07/31/20 History Allergies Allergy/AdvReac Type Severity Reaction Status Date / Time duloxetine [From Cymbalta] Allergy Hallucinati Verified 07/31/20 23:27 ons fluoxetine HCl [From Prozac] Allergy Nausea Verified 07/31/20 23:27 metoclopramide HCl Allergy dystonic Verified 07/31/20 23:27 [From Reglan] reaction, UNABLE TO FOCUS Penicillins Allergy Rash/Hives Verified 07/31/20 23:27 Sulfa (Sulfonamide Allergy Rash/Hives Verified 07/31/20 23:27 Antibiotics) atomoxetine HCl AdvReac Severe Dyspnea Verified 07/31/20 23:27 [From Strattera] topiramate [From Topamax] AdvReac Unknown 50 MG BID- Verified 07/31/20 23:27 SHE COULDNT COMPLETE SENTENCE Physical Examination Upon examination the left great toe is erythematous. Patient is not able to extend/flex big toe. There is a blister on the ventral aspect of the great toe on the left foot. It looks like there is some serosanguineous fluid beneath the intact blister. There is also a black-colored lesion on the dorsal aspect of the patient's big toe. This is also where the patient is having pain while she ambulates. Positive for mild ecchymosis of left great toe. Dorsalis pedis pulses are intact 2+ bilaterally. Patient is able plantarflex foot dorsiflex foot against resistance without much pain. Sensation is intact throughout the foot. Results - Labs Labs: Abnormal Lab Results - Last 24 Hours (Table) 07/31/20 07/31/20 07/31/20 Range/Units 22:28 22:28 22:28 RBC 3.45 L (3.80-5.40) m/uL MCV 108.7 H (80.0-100.0) fL Macrocytosis Marked A Carbon Dioxide 31 H (22-30) mmol/L BUN 26 H (7-17) mg/dL AST 67 H (14-36) U/L Alkaline Phosphatase 164 H (38-126) U/L Urine Appearance Cloudy H (Clear) Urine Nitrite Positive H (Negative) Ur Leukocyte Esterase Large H (Negative) Urine WBC 28 H (0-5) /hpf Urine WBC Clumps Rare H (None) /hpf Urine Bacteria Rare H (None) /hpf Hyaline Casts 16 H (0-2) /lpf Urine Mucus Rare H (None) /hpf Urine Opiates Screen Detected H (NotDetected) U Benzodiazepines Scrn Detected H (NotDetected) H & H 07/31/20 Range/Units 22:28 Hgb 11.9 (11.4-16.0) gm/dL Hct 37.5 (34.0-46.0) % Result Diagrams: 07/31/20 22:28 07/31/20 22:28 Assessment and Plan Assessment: Nondisplaced fracture of the proximal phalanx of great toe on left foot Plan: 1. Nondisplaced fracture, proximal phalanx, great toe, left foot - post operative shoe ordered. Weight-bear as tolerated. Patient to follow up with Dr. Lu in outpatient setting about 1-2 weeks. We will monitor while in hospital 2. Multiple medical comorbidities 3. Appreciate medical management Time with Patient: Less than 30
[2020-08-01] MEDS: ZOLPIDEM 5 MG TAB PO SCH (21:20)
--- NOTE | 2020-08-01 21:38 | P.CNNES ---
History of Present Illness Consult date: 08/01/20 Requesting physician: Car Waldrop Reason for Consult: Seizure History of Present Illness: Patient is a 59-year-old female came to the hospital yesterday at 9 PM for a seizure witnessed by her . Patient does have history of alcoholism. Patient states that she had probably 2 seizures yesterday. The first one was unwitnessed but her dog saw it and alerted patient's . The second seizure her witnessed it. She does not remember details. I spoke to patient's , who states that yesterday morning they were getting ready to get the Covid shot at 9:30 AM. When he came over to get her, she was sitting in the floor of the bedroom. He thought that she may have tripped and fell because she has weak knees. He tried to get her together, in doing so they missed the appointment. Patient's rescheduled appointment for the vaccination. Later at night patient's was fixing that the dinner. He saw that she leaned onto the left and was laying on the left and had a seizure in which she bit her tongue very badly. She did lose control of urine. After she came out of the seizure, her brought her to the hospital. Vital signs on arrival blood pressure 139/73, pulse of 90, temperature 98.8. CT head showed negative unenhanced CT head. Shoulder x-ray negative, EKG normal sinus rhythm with prolonged QT. Blood test shows normal WBC hemoglobin 11.9 with elevated MCV 108.7. Chem-7 normal. AST 67, ALT 14, UA shows positive nitrite, large amount of leukocyte Estrace, rare bacteria. Urine drug screen positive for opiates and benzodiazepine. Blood alcohol negative. Henderson S PCR negative. Patient's also states that she drinks very heavily, would easily drink one later in 3-4 days. Sometimes she does not drink for a few days as well. She does not take excessive caffeine. He does not know when was her last drink, as he goes out for work and she stays home and drinks by herself. He mentions that about 1-1/2 years ago patient stopped drinking alcohol and she ended up with withdrawals and was hospitalized in [facility] for a week. He does not remember if she had a seizure with those withdrawals. Patient also had dropped a watermelon on her foot and suffered from hairline fracture of the toe of the left foot. 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 History of Any Multi-Drug Resistant Organisms: None Reported Past Surgical History: Bariatric Surgery, Hernia Repair, Orthopedic Surgery, Tubal Ligation Additional Past Surgical History / Comment(s): gastric bypass, arthroscopic surgery bilateral knees with lateral ligament releases, umbilical hernia repair with mesh, PAIN CLINIC PROCEDURES, bilateral carpal tunnel surgery.Fx knee repair, R and L cataract surgery., detached retina Past Anesthesia/Blood Transfusion Reactions: Motion Sickness, Postoperative Nausea & Vomiting (PONV) Past Psychological History: Anxiety, Depression, Panic Disorder Smoking Status: Never smoker Past Alcohol Use History: Abuse Additional Past Alcohol Use History / Comment(s): pt states she drinks maybe a bottle of wine a day but states her told her she drank a bottle of captain yesterday Past Drug Use History: None Reported - Past Family History Mother Family Medical History: Cancer Additional Family Medical History / Comment(s): BOWEL AND LIVER, Medications and Allergies Home Medications Medication Instructions Recorded Confirmed Type lisinopriL [Zestril] 40 mg PO DAILY 08/23/14 07/31/20 History Zolpidem [Ambien] 10 mg PO HS 05/28/15 07/31/20 History amLODIPine [Norvasc] 5 mg PO DAILY 05/28/15 07/31/20 History LORazepam [Ativan] 1 mg PO DAILY PRN 02/24/16 07/31/20 History Baclofen [Lioresal] 20 mg PO TID PRN 08/26/16 07/31/20 History PARoxetine HCL [Paxil] 60 cap PO DAILY 10/02/18 07/31/20 History Ascorbic Acid [Vitamin C] 1,000 mg PO DAILY 07/31/20 07/31/20 History Cyanocobalamin (Vitamin B-12) 1,000 mcg PO DAILY 07/31/20 07/31/20 History [Vitamin B-12] Dextroamphetamine/Amphetamine 30 mg PO DAILY 07/31/20 07/31/20 History [Adderall Xr] Furosemide [Lasix] 20 mg PO DAILY 07/31/20 07/31/20 History HYDROcodone/APAP 7.5-325MG [Catron 1 tab PO TID PRN 07/31/20 07/31/20 History 7.5-325] Multivitamins, Thera [Multivitamin 1 tab PO DAILY 07/31/20 07/31/20 History (formulary)] Naproxen 500 mg PO BID PRN 07/31/20 07/31/20 History Prednisolone Acetate/Pf 1 drop LEFT EYE BID 07/31/20 07/31/20 History [Prednisolone Acet 1% Eye Drop] Sodium Chloride 5% Ophth Soln 1 drop LEFT EYE TID 07/31/20 07/31/20 History [Whitley 128] Thiamine [Vitamin B-1] 100 mg PO DAILY 07/31/20 07/31/20 History Allergies Allergy/AdvReac Type Severity Reaction Status Date / Time duloxetine [From Cymbalta] Allergy Hallucinati Verified 07/31/20 23:27 ons fluoxetine HCl [From Prozac] Allergy Nausea Verified 07/31/20 23:27 metoclopramide HCl Allergy dystonic Verified 07/31/20 23:27 [From Reglan] reaction, UNABLE TO FOCUS Penicillins Allergy Rash/Hives Verified 07/31/20 23:27 Sulfa (Sulfonamide Allergy Rash/Hives Verified 07/31/20 23:27 Antibiotics) atomoxetine HCl AdvReac Severe Dyspnea Verified 07/31/20 23:27 [From Strattera] topiramate [From Topamax] AdvReac Unknown 50 MG BID- Verified 07/31/20 23:27 SHE COULDNT COMPLETE SENTENCE Physical Examination - Vital Signs Vital Signs: Vital Signs Temp Pulse Pulse Resp BP BP Pulse Ox 08/01/20 02:30 16 08/01/20 02:00 98.5 F 82 16 137/83 98 08/01/20 01:10 88 18 135/89 98 08/01/20 00:10 86 18 121/81 100 07/31/20 21:10 98.8 F 90 20 139/73 99 Intake and Output 07/31/20 08/01/20 08/01/20 22:59 06:59 14:59 Intake Total 250 Balance 250 Intake: Oral 250 Other: # Bowel Movements 1 Weight 89.086 kg 89.086 kg Patient is middle aged female, in no distress. Patient is alert awake oriented to time place and person. Speech and language functions are normal. Attention, concentration and fund of knowledge is adequa te. On cranial examination, both of her pupils are surgical, left is larger than the right, which is chronic from previous eye surgeries. Right pupil is better reactive, left is sluggish. Her visual hunter are full on confrontation with no neglect, extraocular muscles are intact with no nystagmus. Face is symmetric, tongue protrudes to the midline. Palatal elevation and sensation normal, hear ing and shoulder shrug normal, facial sensation normal. Shoulder shrug normal. On muscle strength testing, there is no pronator drift and the strength is normal in arms and legs distally and proximally. Deep tendon reflexes are 1+ and plantars downgoing Sensory to touch is equal with no neglect. Cerebellar function showed no ataxia for [id number] testing. No dysdiadochokinesia. Tone and bulk of muscles normal. Gait deferred. On general examination, there is no carotid bruit or murmur, S1-S2 audible. Abdomen is soft nontender. Chest is clear. Peripheral pulses are present. No edema. Results - Laboratory Findings CBC and BMP: 07/31/20 22:28 07/31/20 22:28 Abnormal Lab Findings: Abnormal Labs 07/31/20 07/31/20 07/31/20 22:28 22:28 22:28 RBC 3.45 L MCV 108.7 H Macrocytosis Marked A Carbon Dioxide 31 H BUN 26 H AST 67 H Alkaline Phosphatase 164 H Urine Appearance Cloudy H Urine Nitrite Positive H Ur Leukocyte Esterase Large H Urine WBC 28 H Urine WBC Clumps Rare H Urine Bacteria Rare H Hyaline Casts 16 H Urine Mucus Rare H Urine Opiates Screen Detected H U Benzodiazepines Scrn Detected H Assessment and Plan Assessment: * New onset seizure, most likely due to alcohol withdrawal. Patient does drink very heavily. Her blood alcohol level was negative indicating the seizure probably related to alcohol withdrawal. * History of alcoholism. * Nondisplaced fracture left big toe. Plan: * Patient underwent EEG, which was normal. No epileptiform activity was seen. * No indication for antiepileptic medication, as the seizure was most likely provoked due to alcohol withdrawal. * Watch for delirium tremens. * Patient was counseled about abstinence from alcoholism. * Thiamine, folate, multivitamins. * Patient was informed of [place] state law of no driving unless seizure free for 6 months, climbing ladders, operate dangerous machinery or unsupervised swimming. * Neurologically clear for discharge otherwise.
--- NOTE | 2020-08-01 22:09 | EEG ---
ELECTROENCEPHALOGRAM REPORT DATE OF SERVICE: 08/01/2020 PREAMBLE: This is a 59-year-old female who has a history of alcoholism, came with new onset seizure. This study is performed to evaluate for any epileptiform activity. EEG FINDINGS: This is a 21 channel routine EEG recording in a patient utilizing 10/20 international system with referential and bipolar montages. The background consists of well developed, well regulated, moderate to high amplitude activity in 9-10 hertz alpha. Background is posterior, but dominant and reactive to eye opening and closing. Photic driving response was not clearly seen. Different stages of sleep were not seen. No focal or generalized epileptiform activity was seen. EKG channel showed no arrhythmia. IMPRESSION: This is a normal awake and drowsy EEG. No focal, lateralized, or epileptiform activity was seen. MMODL / IJN: [id number] /
[2020-08-02] MEDS: levETIRAcetam IV 750 MG in SODIUM CHLORIDE 0.9% 100 ML IVPB SCH ×2 (02:16→13:38)
[2020-08-02] MEDS: CYANOCOBALAMIN 500 MCG TAB PO SCH (10:20)
[2020-08-02] MEDS: ENOXAPARIN 40 MG/0.4 ML SYRINGE SQ SCH (10:20)
[2020-08-02] MEDS: PARoxetine 20 MG TAB PO SCH (10:20)
[2020-08-02] MEDS: THIAMINE 100 MG TAB PO SCH ×3 (10:21→16:59)
[2020-08-02] MEDS: lisinopriL 20 MG TAB PO SCH (10:21)
[2020-08-02] MEDS: ASCORBIC ACID 500 MG TAB PO SCH (10:21)
[2020-08-02] MEDS: NON FORMULARY DRUG (Dextroamphetamine/Amphetamine [Adderall Xr] 30 MG Cap.Er.24h) PO SCH (10:22)
[2020-08-02] MEDS: MULTIVITAMINS, THERA 1 EACH TAB PO SCH (10:22)
[2020-08-02] MEDS: NAPROXEN 250 MG TAB PO SCH ×3 (10:22→20:17)
[2020-08-02] MEDS: FAMOTIDINE 20 MG TAB PO SCH ×2 (10:23→20:16)
[2020-08-02] MEDS: prednisoLONE ACETATE 1% OPHTH DROPS 5 ML BTL LEFT EYE SCH ×2 (10:23→20:16)
[2020-08-02] MEDS: SODIUM CHLORIDE 5% OPHTH DROPS 15 ML BTL LEFT EYE SCH ×3 (10:24→20:17)
[2020-08-02] MEDS: BACITRACIN ZINC 500 UNIT/GM OINT 28.4 GM TUBE TOPICAL SCH ×3 (10:26→20:18)
[2020-08-02] MEDS: diazePAM 5 MG TAB PO SCH (10:27)
[2020-08-02] MEDS ORDERED: diazePAM 2 MG TAB PO STA (10:41)
--- NOTE | 2020-08-02 12:26 | P.PN ---
Progress Note - Text Progress Note Date: 08/02/20 Upon entering room patient was lying supine in bed. She says she has received postop shoe for fractured great toe. She says her pain has not changed very much in her toe. She says she is still not able to flex her toe. Toe still appears red upon inspection, inflamed, tender. Instructed patient to follow up if there is any aggravation of injury. 1. Nondisplaced fracture, proximal phalanx, great toe, left foot - post operative shoe ordered. Weight-bear as tolerated. Patient to follow up with Dr. Lu in outpatient setting about 1-2 weeks. We will monitor while in hospital 2. Multiple medical comorbidities 3. Appreciate medical management 4. Pain management -stable at this time
--- NOTE | 2020-08-02 14:16 | P.PN ---
Progress Note - Text Progress Note Date: 08/02/20 History of presenting complaint: This is a 59-year-old patient, follows with Dr. Kramer. Chronic stable medical conditions include GERD, hypertension, osteoarthritis, history of head 3 2007 with residual short-term memory loss, history of TB skin test with INH treatment in 2002. Chronic back and neck pain for which she follows with pain management with Dr. Olivo. Patient been drinking alcohol for a long time. She was drinking yesterday. She does not remember the details of what happened. She has not so far. Apparently she has a seizure and fell down. Her dog called her . And patient was brought in. Patient did bite her tongue. She never had seizures before. She also kicked her closet door and a left total has been hurting since then. Rather tender. No fever no chills Admitted with alcohol-related seizures. Put on CIWA scale. Valium for DVT prophylaxis. Also found to have fracture of the left big toe proximal phalanx. Today: Patient has slept well. No further seizure activity. Did eat some breakfast. Hasn't been out of bed. 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 She drinks normally about wine a day but apparently yesterday she drank half a gallon of [employer]. Physical examination: VITAL SIGNS: 98.3, 85, 16, 130/73, 97% room air GENERAL: Laying in bed, comfortable EYES: Pupils equal. Conjunctiva normal. HEENT: External appearance of nose and ears normal, oral cavity-tongue bite on the anterior lateral side . NECK: JVD not raised; masses not palpable. HEART: First and second heart sounds are normal; no edema. LUNGS: Respiratory rate normal; clear to auscultation. ABDOMEN: Soft, nontender, liver spleen not palpable, no masses palpable. PSYCH: [Alert and oriented x3; mood and affect anxious MUSCULAR skeletal: Left big toe, tender increased local temperature superficial wound, limited range of motion l. INVESTIGATIONS, reviewed in the clinical context: EEG: Negative for epilepsy activity WBC 7.7 hemoglobin 11.9 platelets 215 potassium 4.5 creatinine 0.96 AST 67 ALT 14 UA positive for leukoesterase, WBC Urine drug screen positive for opiates, benzodiazepine Serum alcohol less than 10 Coronavirus [PCR]-not detected EKG tracing personally reviewed by me-normal sinus rhythm, prolonged QT X-ray showed a right: Negative Computed tomography scan of the brain without contrast: Negative X-ray of the left foot Limited: Acute nondisplaced fracture of the proximal phalanx Assessment and plan: -New onset of seizure activity secondary to alcoholism. Patient has no prior history of seizure. The patient did have a head injury in 2007. Neurology consulted. Neuro checks. Seizure precautions. No indications go for antiepileptic drugs. ZACH Keppra -Alcohol use disorder Patient on Thiamine. Valium for DT prophylaxis. CIWA scale -GERD Continue Pepcid -Essential hypertension Continue Zestril. Hold on Norvasc for now -Left foot proximal phalanx fracture secondary to local trauma Fractured toe can be taped to the adjacent toe. Decreased mobility. Orthopedics consulted. Use Boot -Chronic insomnia Continue with Ambien, decreased dose -Chronic constipation Add fiber -Chronic anxiety disorder Continue Paxil Cutback the dose of Valium. ZACH Flowers. Discussed with the patient. Increase activity. Possible discharge tomorrow.
[2020-08-02] MEDS: diazePAM 2 MG TAB PO SCH ×2 (15:38→20:16)
[2020-08-02] MEDS: HYDROcodone/APAP 7.5-325MG 1 EACH TAB PO PRN (18:54)
[2020-08-02] MEDS: ZOLPIDEM 5 MG TAB PO SCH (20:16)
[2020-08-03] MEDS: DEXTROSE 5%-0.45% NACL 1,000 ML IV SCH (01:42)
[2020-08-03 07:46] VITALS: BP 148/90; PULSE 78; RESP 17; TEMP 98.6
[2020-08-03] MEDS: NON FORMULARY DRUG (Dextroamphetamine/Amphetamine [Adderall Xr] 30 MG Cap.Er.24h) PO SCH (08:03)
[2020-08-03] MEDS: THIAMINE 100 MG TAB PO SCH ×2 (08:03→08:13)
[2020-08-03] MEDS: ENOXAPARIN 40 MG/0.4 ML SYRINGE SQ SCH (08:12)
[2020-08-03] MEDS: diazePAM 2 MG TAB PO SCH (08:13)
[2020-08-03] MEDS: NAPROXEN 250 MG TAB PO SCH (08:13)
[2020-08-03] MEDS: PARoxetine 20 MG TAB PO SCH (08:13)
[2020-08-03] MEDS: FAMOTIDINE 20 MG TAB PO SCH (08:14)
[2020-08-03] MEDS: SODIUM CHLORIDE 5% OPHTH DROPS 15 ML BTL LEFT EYE SCH (08:14)
[2020-08-03] MEDS: CYANOCOBALAMIN 500 MCG TAB PO SCH (08:14)
[2020-08-03] MEDS: ASCORBIC ACID 500 MG TAB PO SCH (08:14)
[2020-08-03] MEDS: lisinopriL 20 MG TAB PO SCH (08:14)
[2020-08-03] MEDS: MULTIVITAMINS, THERA 1 EACH TAB PO SCH (08:14)
[2020-08-03] MEDS: prednisoLONE ACETATE 1% OPHTH DROPS 5 ML BTL LEFT EYE SCH (08:15)
[2020-08-03] MEDS: BACITRACIN ZINC 500 UNIT/GM OINT 28.4 GM TUBE TOPICAL SCH (08:15)
--- NOTE | 2020-08-03 21:48 | P.DS ---
Providers Date of admission: 08/01/20 00:08 Expected date of discharge: 08/03/20 Attending physician: Tera Campo Consults: 08/01/20 00:08 Consult Physician Routine Consulting Provider: Juan David Rivas Consult Reason/Comments: jovanni Do you want consulting provider notified?: Yes 08/01/20 11:26 Consult Physician Routine Consulting Provider: Wilmer Lu Consult Reason/Comments: left foot great toe, possible break. Do you want consulting provider notified?: Yes Primary care physician: [facility] Course: History of presenting complaint: This is a 59-year-old patient, follows with Dr. Kramer. Chronic stable medical conditions include GERD, hypertension, osteoarthritis, history of head 3 2007 with residual short-term memory loss, history of TB skin test with INH treatment in 2002. Chronic back and neck pain for which she follows with pain management with Dr. Olivo. Patient been drinking alcohol for a long time. She was drinking yesterday. She does not remember the details of what happened. She has not so far. Apparently she has a seizure and fell down. Her dog called her . And patient was brought in. Patient did bite her tongue. She never had seizures before. She also kicked her closet door and a left total has been hurting since then. Rather tender. No fever no chills Admitted with alcohol-related seizures. Put on CIWA scale. Valium for DVT prophylaxis. Also found to have fracture of the left big toe proximal phalanx. Was given a boot for the same. Seen by neurology. Patient not to be given any antiepileptic drugs. EEG negative for seizures. Today: Patient doing well. Valium discontinued. Discussed with the patient. She does not want her Antabuse. Alcohol cessation discussion again done. Questions answered. Patient's amlodipine discontinued. Dose of Zestoretic adjusted. Patient completed course of Keflex. No driving. 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 She drinks normally about wine a day but apparently yesterday she drank half a gallon of [employer] [place]. Physical examination: VITAL SIGNS: 98.6, 78, 17, 148 with 90, 96% room air GENERAL: Sitting up in the bed comfortable EYES: Pupils equal. Conjunctiva normal. HEENT: External appearance of nose and ears normal, oral cavity-tongue bite on the anterior lateral side . NECK: JVD not raised; masses not palpable. HEART: First and second heart sounds are normal; no edema. LUNGS: Respiratory rate normal; clear to auscultation. ABDOMEN: Soft, nontender, liver spleen not palpable, no masses palpable. PSYCH: [Alert and oriented x3; mood and affect anxious MUSCULAR skeletal: Left big toe, tender increased local temperature superficial wound, limited range of motion l. INVESTIGATIONS, reviewed in the clinical context: EEG: Negative for epilepsy activity WBC 7.7 hemoglobin 11.9 platelets 215 potassium 4.5 creatinine 0.96 AST 67 ALT 14 UA positive for leukoesterase, WBC Urine drug screen positive for opiates, benzodiazepine Serum alcohol less than 10 Coronavirus [PCR]-not detected EKG tracing personally reviewed by me-normal sinus rhythm, prolonged QT X-ray showed a right: Negative Computed tomography scan of the brain without contrast: Negative X-ray of the left foot Limited: Acute nondisplaced fracture of the proximal phalanx Assessment and plan: -New onset of seizure activity secondary to alcoholism. Patient has no prior history of seizure. The patient did have a head injury in 2007. Neurology consulted. Neuro checks. Seizure precautions. No indications go for antiepileptic drugs. -Alcohol use disorder Patient on Thiamine. Valium for DT prophylaxis-discontinued. CIWA scale. Patient does not want to use Antabuse -GERD Continue Pepcid -Essential hypertension Placed on Zestoretic. Amlodipine discontinued -Left foot proximal phalanx fracture secondary to local trauma Fractured toe can be taped to the adjacent toe. Decreased mobility. Orthopedics consulted. Use Boot -Chronic insomnia Continue with Ambien, decreased dose to 5 mg -Chronic constipation Add fiber -Chronic anxiety disorder Continue Paxil -Acute UTI with cystitis On Keflex Disposition: Home Patient Condition at Discharge: Fair Plan - Discharge Summary Discharge Rx Participant: No New Discharge Prescriptions: New Famotidine [Pepcid] 20 mg PO BID #60 tab Bacitracin Zinc Oint 1 applic TOPICAL TID applic Lisinopril-Hctz 20-12.5 mg [Zestoretic 20-12.5] 1 tab PO BID #60 tab Cephalexin [Keflex] 500 mg PO Q6HR 1 Days #20 cap Continue Baclofen [Lioresal] 20 mg PO TID PRN PRN Reason: Muscle Spasm PARoxetine HCL [Paxil] 60 cap PO DAILY Sodium Chloride 5% Ophth Soln [Whitley 128] 1 drop LEFT EYE TID HYDROcodone/APAP 7.5-325MG [Warner 7.5-325] 1 tab PO TID PRN PRN Reason: Pain Dextroamphetamine/Amphetamine [Adderall Xr] 30 mg PO DAILY Prednisolone Acetate/Pf [Prednisolone Acet 1% Eye Drop] 1 drop LEFT EYE BID Naproxen 500 mg PO BID PRN PRN Reason: Pain Thiamine [Vitamin B-1] 100 mg PO DAILY Multivitamins, Thera [Multivitamin (formulary)] 1 tab PO DAILY Cyanocobalamin (Vitamin B-12) [Vitamin B-12] 1,000 mcg PO DAILY Ascorbic Acid [Vitamin C] 1,000 mg PO DAILY Changed Zolpidem [Ambien] 5 mg PO HS #0 Discontinued lisinopriL [Zestril] 40 mg PO DAILY amLODIPine [Norvasc] 5 mg PO DAILY LORazepam [Ativan] 1 mg PO DAILY PRN PRN Reason: Anxiety Furosemide [Lasix] 20 mg PO DAILY Discharge Medication List Baclofen [Lioresal] 20 mg PO TID PRN 08/26/16 [History] PARoxetine HCL [Paxil] 60 cap PO DAILY 10/02/18 [History] Ascorbic Acid [Vitamin C] 1,000 mg PO DAILY 07/31/20 [History] Cyanocobalamin (Vitamin B-12) [Vitamin B-12] 1,000 mcg PO DAILY 07/31/20 [History] Dextroamphetamine/Amphetamine [Adderall Xr] 30 mg PO DAILY 07/31/20 [History] HYDROcodone/APAP 7.5-325MG [Warner 7.5-325] 1 tab PO TID PRN 07/31/20 [History] Multivitamins, Thera [Multivitamin (formulary)] 1 tab PO DAILY 07/31/20 [History] Naproxen 500 mg PO BID PRN 07/31/20 [History] Prednisolone Acetate/Pf [Prednisolone Acet 1% Eye Drop] 1 drop LEFT EYE BID 07/31/20 [History] Sodium Chloride 5% Ophth Soln [Whitley 128] 1 drop LEFT EYE TID 07/31/20 [History] Thiamine [Vitamin B-1] 100 mg PO DAILY 07/31/20 [History] Bacitracin Zinc Oint 1 applic TOPICAL TID applic 08/03/20 [Rx] Cephalexin [Keflex] 500 mg PO Q6HR 1 Days #20 cap 08/03/20 [Rx] Famotidine [Pepcid] 20 mg PO BID #60 tab 08/03/20 [Rx] Lisinopril-Hctz 20-12.5 mg [Zestoretic 20-12.5] 1 tab PO BID #60 tab 08/03/20 [Rx] Zolpidem [Ambien] 5 mg PO HS #0 08/03/20 [Rx] Follow up Appointment(s)/Referral(s): Cb Kramer MD [Primary Care Provider] - 1-2 days Denise Baptiste MD [Medical Doctor] - 1 Week Patient Instructions/Handouts: Abuse of Alcohol (DC) Discharge Disposition: HOME SELF-CARE
== END 2020-08-03 13:50 | disposition home or self-care (01) | DRG 897 ==
LOC: EC 21:04 → 4SSUR 08-01 00:08
PROVIDERS: ADMIT Hospitalist; ATTEND Hospitalist
DX: F10.239 Alcohol dependence with withdrawal, unspecified (principal); R56.9 Unspecified convulsions; F17.219 Nicotine dependence, cigarettes, with unspecified nicotine-induced disorders; F32.9 Major depressive disorder, single episode, unspecified; F41.0 Panic disorder [episodic paroxysmal anxiety]; F51.04 Psychophysiologic insomnia; G47.33 Obstructive sleep apnea (adult) (pediatric); G89.29 Other chronic pain; M54.2 Cervicalgia; M54.9 Dorsalgia, unspecified; I10 Essential (primary) hypertension; Z20.822 Contact with and (suspected) exposure to COVID-19; K21.9 Gastro-esophageal reflux disease without esophagitis; K59.09 Other constipation; M19.90 Unspecified osteoarthritis, unspecified site; N30.90 Cystitis, unspecified without hematuria; S09.90XD Unspecified injury of head, subsequent encounter; S92.412A Displaced fracture of proximal phalanx of left great toe, initial encounter for closed fracture; W20.8XXA Other cause of strike by thrown, projected or falling object, initial encounter; Z91.81 History of falling; Z79.899 Other long term (current) drug therapy; Z87.828 Personal history of other (healed) physical injury and trauma; Z98.42 Cataract extraction status, left eye; Z98.41 Cataract extraction status, right eye; Z98.84 Bariatric surgery status; Z71.41 Alcohol abuse counseling and surveillance of alcoholic; Z80.0 Family history of malignant neoplasm of digestive organs; Z88.0 Allergy status to penicillin; Z88.2 Allergy status to sulfonamides; Z88.8 Allergy status to other drugs, medicaments and biological substances; Z98.51 Tubal ligation status; Z98.890 Other specified postprocedural states
CPT/HCPCS: 36415; 70450; 80053; 80143; 80179; 80306; 80320; 81001; 83735; 84100; 85025; 87635; 93005; 95816; 96360; 96361; 99285

== ENCOUNTER 2020-10-06 18:44 | Inpatient (IN) | payer BC ==
[2020-10-06] MEDS ORDERED: LORazepam 2 MG/ML INJ IV PRN ×2 (19:10)
[2020-10-06] MEDS ORDERED: THIAMINE 100 MG/ML 2 ML VIAL IM STA (19:10)
[2020-10-06] MEDS ORDERED: LORazepam 2 MG/ML INJ IV STA (19:13)
--- NOTE | 2020-10-06 19:13 | ED ---
General Adult HPI - General Chief complaint: Alcohol Stated complaint: ETOH Time Seen by Provider: 10/06/20 19:01 Source: patient, family Mode of arrival: wheelchair Limitations: physical limitation - History of Present Illness Initial comments: Dictation was produced using [employer] dictation software. please excuse any grammatical, word or spelling errors. Chief Complaint: 60-year-old alcoholic presents with alcohol withdrawal symptoms History of Present Illness: Is a 6-year-old female suturing so proximally a fifth of alcohol a day. Patient recently ran out of rhomb which is her favorite drink. His unclear exactly when her last drink was. at bedside states that patient has had alcohol withdrawal seizures in the past and was admitted to a different hospital. Patient denies any pain complaints. The ROS documented in this emergency department record has been reviewed and confirmed by me. Those systems with pertinent positive or negative responses have been documented in the HPI. All other systems are other negative and/or noncontributory. PHYSICAL EXAM: General Impression: Alert and oriented x3, not in acute distress, tremulous HEENT: Normocephalic atraumatic, extra-ocular movements intact, pupils equal and reactive to light bilaterally, mucous membranes moist. Cardiovascular: Heart regular rate and rhythm Chest: Able to complete full sentences, no retractions, no tachypnea Abdomen: abdomen soft, non-tender, non-distended, no organomegaly Musculoskeletal: Pulses present and equal in all extremities, no peripheral edema Motor: no focal deficits noted Neurological: CN II-XII grossly intact, no focal motor or sensory deficits noted Skin: Intact with no visualized rashes Psych: Normal affect and mood ED course: 60-year-old female presents to the emergency department for alcohol withdrawal symptoms. Vital signs upon arrival are within acceptable limits. Patient does have some mild symptoms of alcohol withdrawal. Breath alcohol test is negative Laboratory evaluation obtained. CBC within acceptable limits. Metabolic panel shows slightly elevated renal markers likely secondary to dehydration. Magnesium 2.7. Rest of labs within acceptable limits. Patient be admitted for alcohol withdrawal. Although she has mild symptoms currently she will likely decompensate given her history of severe alcohol withdrawal symptoms. EKG interpretation: Ventricular rate 81, normal sinus rhythm,. Interval 154, QRS 82, QTC 480. No [place] prolongation, no QTC prolongation, no ST or T-wave changes noted. Overall, this EKG is unremarkable - Related Data Home Medications Medication Instructions Recorded Confirmed Baclofen [Lioresal] 20 mg PO TID PRN 08/26/16 07/31/20 PARoxetine HCL [Paxil] 60 cap PO DAILY 10/02/18 07/31/20 Ascorbic Acid [Vitamin C] 1,000 mg PO DAILY 07/31/20 07/31/20 Cyanocobalamin (Vitamin B-12) 1,000 mcg PO DAILY 07/31/20 07/31/20 [Vitamin B-12] Dextroamphetamine/Amphetamine 30 mg PO DAILY 07/31/20 07/31/20 [Adderall Xr] HYDROcodone/APAP 7.5-325MG [[place] 1 tab PO TID PRN 07/31/20 07/31/20 7.5-325] Multivitamins, Thera [Multivitamin 1 tab PO DAILY 07/31/20 07/31/20 (formulary)] Naproxen 500 mg PO BID PRN 07/31/20 07/31/20 Prednisolone Acetate/Pf 1 drop LEFT EYE BID 07/31/20 07/31/20 [Prednisolone Acet 1% Eye Drop] Sodium Chloride 5% Ophth Soln 1 drop LEFT EYE TID 07/31/20 07/31/20 [[place] 128] Thiamine [Vitamin B-1] 100 mg PO DAILY 07/31/20 07/31/20 Previous Rx's Medication Instructions Recorded Bacitracin Zinc Oint 1 applic TOPICAL TID applic 08/03/20 Cephalexin [Keflex] 500 mg PO Q6HR 1 Days #20 cap 08/03/20 Famotidine [Pepcid] 20 mg PO BID #60 tab 08/03/20 Lisinopril-Hctz 20-12.5 mg 1 tab PO BID #60 tab 08/03/20 [Zestoretic 20-12.5] Zolpidem [Ambien] 5 mg PO HS #0 08/03/20 Allergies Allergy/AdvReac Type Severity Reaction Status Date / Time duloxetine [From Cymbalta] Allergy Hallucinati Verified 10/06/20 18:50 ons fluoxetine HCl [From Prozac] Allergy Nausea Verified 10/06/20 18:50 metoclopramide HCl Allergy dystonic Verified 10/06/20 18:50 [From Reglan] reaction, UNABLE TO FOCUS Penicillins Allergy Rash/Hives Verified 10/06/20 18:50 Sulfa (Sulfonamide Allergy Rash/Hives Verified 10/06/20 18:50 Antibiotics) atomoxetine HCl AdvReac Severe Dyspnea Verified 10/06/20 18:50 [From Strattera] topiramate [From Topamax] AdvReac Unknown 50 MG BID- Verified 10/06/20 18:50 SHE COULDNT COMPLETE SENTENCE Review of Systems ROS Statement: Those systems with pertinent positive or pertinent negative responses have been documented in the HPI. ROS Other: All systems not noted in ROS Statement are negative. 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 History of Any Multi-Drug Resistant Organisms: None Reported Past Surgical History: Bariatric Surgery, Hernia Repair, Orthopedic Surgery, Tubal Ligation Additional Past Surgical History / Comment(s): gastric bypass, arthroscopic surgery bilateral knees with lateral ligament releases, umbilical hernia repair with mesh, PAIN CLINIC PROCEDURES, bilateral carpal tunnel surgery.Fx knee repair, R and L cataract surgery., detached retina Past Anesthesia/Blood Transfusion Reactions: Motion Sickness, Postoperative Nausea & Vomiting (PONV) Past Psychological History: Anxiety, Depression, Panic Disorder Smoking Status: Never smoker Past Alcohol Use History: Abuse, Daily Past Drug Use History: None Reported - Past Family History Mother Family Medical History: Cancer Additional Family Medical History / Comment(s): BOWEL AND LIVER, General Exam Limitations: physical limitation Course Vital Signs 10/06/20 10/06/20 18:46 19:42 Temperature 97.5 F L Pulse Rate 88 80 Respiratory 18 16 Rate Blood Pressure 114/74 98/63 O2 Sat by Pulse 95 97 Oximetry Medical Decision Making - Lab Data Result diagrams: 10/06/20 19:24 10/06/20 19:24 Lab Results 10/06/20 10/06/20 10/06/20 Range/Units 19:24 19:24 19:24 WBC 12.9 H (3.8-10.6) k/uL RBC 3.46 L (3.80-5.40) m/uL Hgb 12.0 (11.4-16.0) gm/dL Hct 37.1 (34.0-46.0) % MCV 107.3 H (80.0-100.0) fL MCH 34.7 (25.0-35.0) pg MCHC 32.4 (31.0-37.0) g/dL RDW 13.4 (11.5-15.5) % Plt Count 273 (150-450) k/uL MPV 6.8 Neutrophils % 81 % Lymphocytes % 13 % Monocytes % 3 % Eosinophils % 3 % Basophils % 0 % Neutrophils # 10.4 H (1.3-7.7) k/uL Lymphocytes # 1.6 (1.0-4.8) k/uL Monocytes # 0.3 (0-1.0) k/uL Eosinophils # 0.4 (0-0.7) k/uL Basophils # 0.1 (0-0.2) k/uL Macrocytosis Moderate Sodium 134 L (137-145) mmol/L Potassium 4.3 (3.5-5.1) mmol/L Chloride 107 (98-107) mmol/L Carbon Dioxide 20 L (22-30) mmol/L Anion Gap 7 mmol/L BUN 35 H (7-17) mg/dL Creatinine 1.70 H (0.52-1.04) mg/dL Est GFR (CKD-EPI)AfAm 37 (>60 ml/min/1.73 sqM) Est GFR (CKD-EPI)NonAf 32 (>60 ml/min/1.73 sqM) Glucose 80 (74-99) mg/dL Plasma Lactic Acid Sukumar 0.9 (0.7-2.0) mmol/L Calcium 9.4 (8.4-10.2) mg/dL Magnesium 2.7 H (1.6-2.3) mg/dL Total Bilirubin 0.7 (0.2-1.3) mg/dL AST 40 H (14-36) U/L ALT 8 (4-34) U/L Alkaline Phosphatase 151 H (38-126) U/L Total Protein 6.7 (6.3-8.2) g/dL Albumin 4.0 (3.5-5.0) g/dL Lipase 104 (23-300) U/L Serum Alcohol <10 mg/dL Disposition Clinical Impression: Alcohol withdrawal Disposition: ADMITTED IP TO THIS HOSP Condition: Fair Referrals: Cb Kramer MD [Primary Care Provider] - 1-2 days
[2020-10-06 19:33] LABS: Basophils # (A) 0.1 k/uL (0-0.2); Basophils % (A) 0 %; Eosinophils # (A) 0.4 k/uL (0-0.7); Eosinophils % (A) 3 %; HCT 37.1 % (34.0-46.0); Lymphocytes # (A) 1.6 k/uL (1.0-4.8); Lymphocytes % (A) 13 %; MCH 34.7 pg (25.0-35.0); MCHC 32.4 g/dL (31.0-37.0); MCV 107.3 fL (80.0-100.0); Macrocytosis Moderate; Mean Platelet Volume 6.8; Monocytes # (A) 0.3 k/uL (0-1.0); Monocytes % (A) 3 %; Neutrophils # (A) 10.4 k/uL (1.3-7.7); Neutrophils % (A) 81 %; Platelet Count 273 k/uL (150-450); RBC 3.46 m/uL (3.80-5.40); RDW 13.4 % (11.5-15.5); WBC 12.9 k/uL (3.8-10.6)
[2020-10-06 19:49] LABS: ALT 8 U/L (4-34); AST 40 U/L (14-36); African American GFR (CKD) 37 (>60 ml/min/1.73 sqM); Alcohol <10 mg/dL; Alkaline Phosphatase 151 U/L (38-126); Anion Gap 7 mmol/L; Blood Urea Nitrogen 35 mg/dL (7-17); Calcium 9.4 mg/dL (8.4-10.2); Carbon Dioxide 20 mmol/L (22-30); Chloride 107 mmol/L (98-107); Glucose 80 mg/dL (74-99); Lipase 104 U/L (23-300); Magnesium 2.7 mg/dL (1.6-2.3); Non-African American GFR(CKD) 32 (>60 ml/min/1.73 sqM); Potassium 4.3 mmol/L (3.5-5.1); Sodium 134 mmol/L (137-145); Total Bilirubin 0.7 mg/dL (0.2-1.3); Total Protein 6.7 g/dL (6.3-8.2)
[2020-10-06] MEDS ORDERED: SODIUM CHLORIDE 0.9% 1,000 ML IV STA ×2 (19:51)
[2020-10-06] MEDS ORDERED: NALOXONE 0.4 MG/ML 1 ML VIAL IV PRN (19:52)
[2020-10-06] MEDS ORDERED: ACETAMINOPHEN TAB 325 MG TAB PO PRN (19:52)
[2020-10-06] MEDS ORDERED: BACLOFEN 10 MG TAB PO PRN (22:22)
--- NOTE | 2020-10-06 22:34 | P.HPIM ---
History of Present Illness H&P Date: 10/06/20 Chief Complaint: Unsteady, not feeling well History of presenting complaint: This is a 60-year-old patient, follows with Dr. Kramer. 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 Chronic back and neck pain for which she follows with pain management with Dr. Olivo. drinking alcohol for a long time. Patient's currently sleeping/sedated with Valium. is the bedside who gives all the history. Patient has continued to drink excessively. Ly [place]. Patient does not eat well. Has started becoming unsteady on her feet. Not feeling well. Patient ran out of ROM patient what she normally drinks. On the last admission here patient was diagnosed to have seizures. It was then decided not to put on any seizure medication. No fever or chills reported. Diet. 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 Has been drinking rum Capt. [place] Physical examination: VITAL SIGNS: 97.5, 88, 18, 114/74, 95% room air GENERAL: BMI 34.3, laying in bed, somnolent EYES: Pupils equal. Conjunctiva normal. HEENT: External appearance of nose and ears normal, oral unable to assess NECK: JVD unable to assess; masses not palpable. HEART: First and second heart sounds are normal; no edema. LUNGS: Respiratory rate normal; clear to auscultation. ABDOMEN: Soft, nontender, liver spleen not palpable, no masses palpable. PSYCH: Unable to assess, patient somnolent NEUROLOGICAL: Cranial nerves grossly intact; no facial asymmetry, power and sensation grossly intact. LYMPHATICS: No lymph nodes palpable in the axilla and neck INVESTIGATIONS, reviewed in the clinical context: WBC 12.9 hemoglobin 12 platelets 273 potassium 4.3 BUN 35 creatinine 1.70 AST 40 ALT 8 Serum alcohol less than 10 EKG tracing personally reviewed by me-normal sinus rhythm. Prolonged QT Assessment and plan: -Alcohol withdrawal syndrome Patient placed on CIWA scale. Valium 5 mg 3 times a day. -Seizure activity secondary to alcohol. On last admission with decided to hold off any seizure medications -Alcohol use disorder Thiamine. Valium for DT prophylaxis- CIWA scale. Patient had declined Antabuse on last admission -GERD Continue Pepcid -Essential hypertension Lisinopril, amlodipine -Chronic insomnia On Ambien. Currently held because patient is on Valium -Chronic constipation fiber -Chronic anxiety disorder Continue Paxil Care was discussed at length with the patient's at the bedside. We will look into options for inpatient rehab for alcoholism. Fall precautions. Thiamine. Valium. CIWA scale. Home medications to be resumed. 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 History of Any Multi-Drug Resistant Organisms: None Reported Past Surgical History: Bariatric Surgery, Hernia Repair, Orthopedic Surgery, Tubal Ligation Additional Past Surgical History / Comment(s): gastric bypass, arthroscopic surgery bilateral knees with lateral ligament releases, umbilical hernia repair with mesh, PAIN CLINIC PROCEDURES, bilateral carpal tunnel surgery.Fx knee repair, R and L cataract surgery., detached retina Past Anesthesia/Blood Transfusion Reactions: Motion Sickness, Postoperative Nausea & Vomiting (PONV) Past Psychological History: Anxiety, Depression, Panic Disorder Smoking Status: Never smoker Past Alcohol Use History: Abuse, Daily Past Drug Use History: None Reported - Past Family History Mother Family Medical History: Cancer Additional Family Medical History / Comment(s): BOWEL AND LIVER, Medications and Allergies Home Medications Medication Instructions Recorded Confirmed Type Baclofen [Lioresal] 20 mg PO TID PRN 08/26/16 10/06/20 History PARoxetine HCL [Paxil] 60 mg PO DAILY 10/02/18 10/06/20 History Ascorbic Acid [Vitamin C] 1,000 mg PO DAILY 07/31/20 10/06/20 History Cyanocobalamin (Vitamin B-12) 1,000 mcg PO DAILY 07/31/20 10/06/20 History [Vitamin B-12] HYDROcodone/APAP 7.5-325MG [[place] 1 tab PO TID PRN 07/31/20 10/06/20 History 7.5-325] Multivitamins, Thera [Multivitamin 1 tab PO DAILY 07/31/20 10/06/20 History (formulary)] Thiamine [Vitamin B-1] 100 mg PO DAILY 07/31/20 10/06/20 History Furosemide [Lasix] 20 mg PO DAILY 10/06/20 10/06/20 History LORazepam [Ativan] 1 mg PO DAILY PRN 10/06/20 10/06/20 History Methylphenidate HCl [[place]] 54 mg PO DAILY 10/06/20 10/06/20 History Omeprazole 20 mg PO BID 10/06/20 10/06/20 History Zolpidem [Ambien] 10 mg PO HS 10/06/20 10/06/20 History amLODIPine [Norvasc] 5 mg PO DAILY 10/06/20 10/06/20 History lisinopriL 40 mg PO DAILY 10/06/20 10/06/20 History Allergies Allergy/AdvReac Type Severity Reaction Status Date / Time duloxetine [From Cymbalta] Allergy Hallucinati Verified 10/06/20 20:36 ons fluoxetine HCl [From Prozac] Allergy Nausea Verified 10/06/20 20:36 metoclopramide HCl Allergy dystonic Verified 10/06/20 20:36 [From Reglan] reaction, UNABLE TO FOCUS Penicillins Allergy Rash/Hives Verified 10/06/20 20:36 Sulfa (Sulfonamide Allergy Rash/Hives Verified 10/06/20 20:36 Antibiotics) atomoxetine HCl AdvReac Severe Dyspnea Verified 10/06/20 20:36 [From Strattera] topiramate [From Topamax] AdvReac Unknown 50 MG BID- Verified 10/06/20 20:36 SHE COULDNT COMPLETE SENTENCE Physical Exam Vitals: Vital Signs Temp Pulse Resp BP Pulse Ox 10/06/20 22:12 69 16 96/59 97 10/06/20 21:01 79 16 101/63 98 10/06/20 19:42 80 16 98/63 97 10/06/20 18:46 97.5 F L 88 18 114/74 95 Intake and Output 07/12/21 07/12/21 07/12/21 06:59 14:59 22:59 Other: Weight 90.718 kg Results CBC & Chem 7: 10/06/20 19:24 10/06/20 19:24 Labs: Abnormal Lab Results - Last 24 Hours (Table) 10/06/20 10/06/20 Range/Units 19:24 19:24 WBC 12.9 H (3.8-10.6) k/uL RBC 3.46 L (3.80-5.40) m/uL MCV 107.3 H (80.0-100.0) fL Neutrophils # 10.4 H (1.3-7.7) k/uL Sodium 134 L (137-145) mmol/L Carbon Dioxide 20 L (22-30) mmol/L BUN 35 H (7-17) mg/dL Creatinine 1.70 H (0.52-1.04) mg/dL Magnesium 2.7 H (1.6-2.3) mg/dL AST 40 H (14-36) U/L Alkaline Phosphatase 151 H (38-126) U/L
[2020-10-06] MEDS: ENOXAPARIN 40 MG/0.4 ML SYRINGE SQ SCH (23:02)
[2020-10-06] MEDS: LACTATED RINGERS 1,000 ML IV SCH (23:54)
[2020-10-07] MEDS: LORazepam 2 MG/ML INJ IV PRN (05:07)
[2020-10-07] MEDS: ASCORBIC ACID 500 MG TAB PO SCH (08:09)
[2020-10-07] MEDS: MULTIVITAMINS, THERA 1 EACH TAB PO SCH (08:14)
[2020-10-07] MEDS: THIAMINE 100 MG TAB PO SCH ×2 (08:14→15:59)
[2020-10-07] MEDS: PANTOPRAZOLE 40 MG TABLET PO SCH ×2 (08:14→15:59)
[2020-10-07] MEDS: METHYLPHENIDATE HCL 5 MG TAB PO SCH ×2 (08:24→15:56)
[2020-10-07] MEDS: CYANOCOBALAMIN 500 MCG TAB PO SCH (08:27)
[2020-10-07] MEDS ORDERED: lisinopriL 20 MG TAB PO SCH (09:00)
[2020-10-07] MEDS ORDERED: amLODIPine 5 MG TAB PO SCH (09:00)
[2020-10-07] MEDS ORDERED: THIAMINE 100 MG TAB PO SCH (09:00)
[2020-10-07] MEDS: LACTATED RINGERS 1,000 ML IV SCH (10:44)
[2020-10-07] MEDS ORDERED: BACLOFEN 10 MG TAB PO PRN (13:08)
[2020-10-07 13:39] LABS: African American GFR (CKD) 55 (>60 ml/min/1.73 sqM); Anion Gap 9 mmol/L; Blood Urea Nitrogen 30 mg/dL (7-17); Calcium 8.6 mg/dL (8.4-10.2); Carbon Dioxide 18 mmol/L (22-30); Chloride 112 mmol/L (98-107); Glucose 74 mg/dL (74-99); Non-African American GFR(CKD) 48 (>60 ml/min/1.73 sqM); Potassium 3.8 mmol/L (3.5-5.1); Sodium 139 mmol/L (137-145)
--- NOTE | 2020-10-07 18:22 | P.PN ---
Progress Note - Text Progress Note Date: 10/07/20 Chief Complaint: Unsteady, not feeling well History of presenting complaint: This is a 60-year-old patient, follows with Dr. Kramer. 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 Chronic back and neck pain for which she follows with pain management with Dr. Olivo. drinking alcohol for a long time. Patient's currently sleeping/sedated with Valium. is the bedside who gives all the history. Patient has continued to drink excessively. [place]. Patient does not eat well. Has started becoming unsteady on her feet. Not feeling well. Patient ran out of ROM patient what she normally drinks. On the last admission here patient was diagnosed to have seizures. It was then decided not to put on any seizure medication. No fever or chills reported. Diet. Admitted with acute alcohol withdrawal syndrome. Acute kidney injury. Put on a CIWA scale. IV fluids. October 07: Laying in bed. Arousable. Arousable. Getting IV fluids. Oral intake no documented Review of systems: Could not be obtained as patient somnolent Active Medications Acetaminophen (Acetaminophen Tab 325 Mg Tab) 650 mg PO Q6HR PRN PRN Reason: Mild Pain or Fever > 100.5 Hydrocodone Bitart/Acetaminophen (Hydrocodone/Apap 7.5-325mg 1 Each Tab) 1 each PO TID PRN PRN Reason: Pain Ascorbic Acid (Ascorbic Acid 500 Mg Tab) 1,000 mg PO DAILY [facility] Last Admin: 10/07/20 08:09 Dose: 1,000 mg Documented by: Baclofen (Baclofen 10 Mg Tab) 10 mg PO TID PRN PRN Reason: Muscle Spasm Cyanocobalamin (Cyanocobalamin 500 Mcg Tab) 1,000 mcg PO DAILY [facility] Last Admin: 10/07/20 08:27 Dose: 1,000 mcg Documented by: Enoxaparin Sodium (Enoxaparin 40 Mg/0.4 Ml Syringe) 40 mg SQ DAILY@2100 [facility] Last Admin: 10/06/20 23:02 Dose: 40 mg Documented by: Lactated Ringer's (Lactated Ringers) 1,000 mls @ 130 mls/hr IV .[id number] [facility] Last Admin: 10/07/20 10:44 Dose: 100 mls/hr Documented by: Lorazepam (Lorazepam 2 Mg/Ml Inj) 1 mg IV Q2HR PRN PRN Reason: CIWA 8 or 9 Last Admin: 10/07/20 05:07 Dose: 1 mg Documented by: Lorazepam (Lorazepam 2 Mg/Ml Inj) 1 mg IV Q1HR PRN PRN Reason: CIWA 10 to 15 Lorazepam (Lorazepam 2 Mg/Ml Inj) 2 mg IV Q10M PRN PRN Reason: CIWA 16 or higher Stop: 10/08/20 19:10 Methylphenidate HCl (Methylphenidate Hcl 5 Mg Tab) 15 mg PO BID@0800,1300 [facility] Last Admin: 10/07/20 15:56 Dose: 15 mg Documented by: Multivitamins (Multivitamins, Thera 1 Each Tab) 1 each PO DAILY [facility] Last Admin: 10/07/20 08:14 Dose: 1 each Documented by: Naloxone HCl (Naloxone 0.4 Mg/Ml 1 Ml Vial) 0.2 mg IV Q2M PRN PRN Reason: Opioid Reversal Pantoprazole Sodium (Pantoprazole 40 Mg Tablet) 40 mg PO AC-BID [facility] Last Admin: 10/07/20 15:59 Dose: 40 mg Documented by: Thiamine HCl (Thiamine 100 Mg Tab) 100 mg PO BID-W/MEALS [facility] Last Admin: 10/07/20 15:59 Dose: 100 mg Documented by: Past medical history to include: Obstructive sleep apnea, anxiety, GERD, insomnia, hypertension, osteoarthritis, head injury 2007 with some residual short-term memory loss, positive TB skin test with INH treatment 2002, chronic back and neck pain, alcohol related seizure 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 Has been drinking rum [place]. [place] Physical examination: VITAL SIGNS: 98.2, 88, 20, 100/71, 98% room air GENERAL: BMI 34.3, laying in bed, lethargic but arousable EYES: Pupils equal. Conjunctiva normal. HEENT: External appearance of nose and ears normal, oral unable to assess NECK: JVD unable to assess; masses not palpable. HEART: First and second heart sounds are normal; no edema. LUNGS: Respiratory rate normal; clear to auscultation. ABDOMEN: Soft, nontender, liver spleen not palpable, no masses palpable. PSYCH: Answering occasional question INVESTIGATIONS, reviewed in the clinical context: October 07: Potassium 3.8 urine 30 creatinine 1.23 WBC 12.9 hemoglobin 12 platelets 273 potassium 4.3 BUN 35 creatinine 1.70 AST 40 ALT 8 Serum alcohol less than 10 EKG tracing personally reviewed by me-normal sinus rhythm. Prolonged QT Assessment and plan: -Alcohol withdrawal syndrome Patient placed on CIWA scale. -Acute kidney injury, likely prerenal from decreased oral intake IV fluids -Acute metabolic encephalopathy multifactorial: Slow to respond -Metabolic acidosis from renal failure Supplement bicarbonate -Seizure activity secondary to alcohol. On last admission : decided to hold off any seizure medications -Alcohol use disorder Thiamine. - CIWA scale. Patient had declined Antabuse on last admission -GERD Continue Pepcid -Essential hypertension Lisinopril, amlodipine -Chronic insomnia Currently hold Ambien. -Chronic constipation fiber -Chronic anxiety disorder Continue Paxil IV fluids. Sodium bicarbonate supplement. Other medications to continue. Repeat labs in the morning.
[2020-10-07] MEDS: ENOXAPARIN 40 MG/0.4 ML SYRINGE SQ SCH (20:55)
[2020-10-07] MEDS: HYDROcodone/APAP 7.5-325MG 1 EACH TAB PO PRN (20:55)
[2020-10-07] MEDS: DEXTROSE 5% IN WATER 1,000 ML with SODIUM BICARB (1 MEQ/ML) 50 ML IV SCH (23:57)
[2020-10-08] MEDS: LORazepam 2 MG/ML INJ IV PRN ×3 (05:04→20:25)
[2020-10-08 05:46] LABS: African American GFR (CKD) 65 (>60 ml/min/1.73 sqM); Anion Gap 6 mmol/L; Blood Urea Nitrogen 26 mg/dL (7-17); Calcium 8.9 mg/dL (8.4-10.2); Carbon Dioxide 22 mmol/L (22-30); Chloride 110 mmol/L (98-107); Glucose 101 mg/dL (74-99); Non-African American GFR(CKD) 56 (>60 ml/min/1.73 sqM); Sodium 138 mmol/L (137-145)
[2020-10-08] MEDS: PANTOPRAZOLE 40 MG TABLET PO SCH ×2 (09:08→17:23)
[2020-10-08] MEDS: CYANOCOBALAMIN 500 MCG TAB PO SCH (09:08)
[2020-10-08] MEDS: THIAMINE 100 MG TAB PO SCH ×2 (09:08→17:23)
[2020-10-08] MEDS: ASCORBIC ACID 500 MG TAB PO SCH (09:08)
[2020-10-08] MEDS: MULTIVITAMINS, THERA 1 EACH TAB PO SCH (09:08)
[2020-10-08] MEDS: METHYLPHENIDATE HCL 5 MG TAB PO SCH ×2 (09:08→13:15)
[2020-10-08] MEDS: DEXTROSE 5% IN WATER 1,000 ML with SODIUM BICARB (1 MEQ/ML) 50 ML IV SCH (13:49)
[2020-10-08] MEDS: ENOXAPARIN 40 MG/0.4 ML SYRINGE SQ SCH (20:29)
--- NOTE | 2020-10-08 20:50 | P.PN ---
Progress Note - Text Progress Note Date: 10/08/20 Chief Complaint: Unsteady, not feeling well History of presenting complaint: This is a 60-year-old patient, follows with Dr. Kramer. 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 Chronic back and neck pain for which she follows with pain management with Dr. Olivo. drinking alcohol for a long time. Patient's currently sleeping/sedated with Valium. is the bedside who gives all the history. Patient has continued to drink excessively. [employer]. [place]. Patient does not eat well. Has started becoming unsteady on her feet. Not feeling well. Patient ran out of ROM patient what she normally drinks. On the last admission here patient was diagnosed to have seizures. It was then decided not to put on any seizure medication. No fever or chills reported. Diet. Admitted with acute alcohol withdrawal syndrome. Acute kidney injury. Put on a CIWA scale. IV fluids. October 07: Laying in bed. Arousable. Getting IV fluids. Oral intake no documented October 08: Laying in bed. More awake. Having auditory hallucinations. Hearing her children and her voiced. Started to eat better. Did sleep well last night. Review of systems: Was done for constitutional, cardiovascular, GI, pulmonary. relevant finding as above Active Medications Acetaminophen (Acetaminophen Tab 325 Mg Tab) 650 mg PO Q6HR PRN PRN Reason: Mild Pain or Fever > 100.5 Hydrocodone Bitart/Acetaminophen (Hydrocodone/Apap 7.5-325mg 1 Each Tab) 1 each PO TID PRN PRN Reason: Pain Last Admin: 10/07/20 20:55 Dose: 1 each Documented by: Ascorbic Acid (Ascorbic Acid 500 Mg Tab) 1,000 mg PO DAILY [facility] Last Admin: 10/08/20 09:08 Dose: 1,000 mg Documented by: Baclofen (Baclofen 10 Mg Tab) 10 mg PO TID PRN PRN Reason: Muscle Spasm Cyanocobalamin (Cyanocobalamin 500 Mcg Tab) 1,000 mcg PO DAILY [facility] Last Admin: 10/08/20 09:08 Dose: 1,000 mcg Documented by: Enoxaparin Sodium (Enoxaparin 40 Mg/0.4 Ml Syringe) 40 mg SQ DAILY@2100 [facility] Last Admin: 10/08/20 20:29 Dose: 40 mg Documented by: Sodium Bicarbonate 50 ml/ (Dextrose/Water) 1,050 mls @ 75 mls/hr IV .Q14H [facility] Last Admin: 10/08/20 13:49 Dose: 75 mls/hr Documented by: Lorazepam (Lorazepam 2 Mg/Ml Inj) 1 mg IV Q2HR PRN PRN Reason: CIWA 8 or 9 Last Admin: 10/08/20 20:25 Dose: 1 mg Documented by: Lorazepam (Lorazepam 2 Mg/Ml Inj) 1 mg IV Q1HR PRN PRN Reason: CIWA 10 to 15 Methylphenidate HCl (Methylphenidate Hcl 5 Mg Tab) 15 mg PO BID@0800,1300 [facility] Last Admin: 10/08/20 13:15 Dose: Not Given Documented by: Multivitamins (Multivitamins, Thera 1 Each Tab) 1 each PO DAILY [facility] Last Admin: 10/08/20 09:08 Dose: 1 each Documented by: Naloxone HCl (Naloxone 0.4 Mg/Ml 1 Ml Vial) 0.2 mg IV Q2M PRN PRN Reason: Opioid Reversal Pantoprazole Sodium (Pantoprazole 40 Mg Tablet) 40 mg PO AC-BID [facility] Last Admin: 10/08/20 17:23 Dose: 40 mg Documented by: Thiamine HCl (Thiamine 100 Mg Tab) 100 mg PO BID-W/MEALS [facility] Last Admin: 10/08/20 17:23 Dose: 100 mg Documented by: Past medical history to include: Obstructive sleep apnea, anxiety, GERD, insomnia, hypertension, osteoarthritis, head injury 2007 with some residual short-term memory loss, positive TB skin test with INH treatment 2002, chronic back and neck pain, alcohol related seizure 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 Has been drinking rum CaptLy Goodman Physical examination: VITAL SIGNS: 98.6, 96, 18, 107/72, 98% room air GENERAL: BMI 34.3, planning bed, for more awake, answered questions EYES: Pupils equal. Conjunctiva normal. HEENT: External appearance of nose and ears normal, oral unable to assess NECK: JVD unable to assess; masses not palpable. HEART: First and second heart sounds are normal; no edema. LUNGS: Respiratory rate normal; clear to auscultation. ABDOMEN: Soft, nontender, liver spleen not palpable, no masses palpable. PSYCH: AO 3, auditory hallucinations INVESTIGATIONS, reviewed in the clinical context: October 08: Pressure 4 creatinine 1.08 October 07: Potassium 3.8 urine 30 creatinine 1.23 WBC 12.9 hemoglobin 12 platelets 273 potassium 4.3 BUN 35 creatinine 1.70 AST 40 ALT 8 Serum alcohol less than 10 EKG tracing personally reviewed by me-normal sinus rhythm. Prolonged QT Assessment and plan: -Alcohol withdrawal syndrome Patient placed on CIWA scale. -Delirium tremens. Patient's having auditory hallucinations. Follow closely -Acute kidney injury, likely prerenal from decreased oral intake: Improving IV fluids -Acute metabolic encephalopathy multifactorial: Improving -Metabolic acidosis from renal failure: Improving Supplement bicarbonate -History of Seizure activity secondary to alcohol. On last admission : decided to hold off any seizure medications -Alcohol use disorder Thiamine. - CIWA scale. Patient had declined Antabuse on last admission -GERD Continue Pepcid -Essential hypertension Lisinopril, amlodipine -Chronic insomnia Resume Ambien. -Chronic constipation fiber -Chronic anxiety disorder Continue Paxil We'll resume Ambien tonight. Had a lengthy discussion with the patient about going to inpatient rehab for alcohol. Spoke with the nurse. manager metal to coordinate with about disposition of the same. Current medications to continue. Will DC IV fluids later today. Repeat BMP. Total time spent about 40 minutes with over 20 minutes of discussion
[2020-10-08] MEDS ORDERED: ZOLPIDEM 5 MG TAB PO SCH (21:00)
[2020-10-09 06:32] LABS: African American GFR (CKD) >90 (>60 ml/min/1.73 sqM); Anion Gap 1 mmol/L; Blood Urea Nitrogen 18 mg/dL (7-17); Carbon Dioxide 28 mmol/L (22-30); Chloride 111 mmol/L (98-107); Glucose 96 mg/dL (74-99); Non-African American GFR(CKD) 86 (>60 ml/min/1.73 sqM); Potassium 4.1 mmol/L (3.5-5.1); Sodium 140 mmol/L (137-145)
[2020-10-09] MEDS: ASCORBIC ACID 500 MG TAB PO SCH (08:32)
[2020-10-09] MEDS: THIAMINE 100 MG TAB PO SCH (08:32)
[2020-10-09] MEDS: CYANOCOBALAMIN 500 MCG TAB PO SCH (08:32)
[2020-10-09] MEDS: METHYLPHENIDATE HCL 5 MG TAB PO SCH ×2 (08:32→13:22)
[2020-10-09] MEDS: MULTIVITAMINS, THERA 1 EACH TAB PO SCH (08:32)
[2020-10-09] MEDS: PANTOPRAZOLE 40 MG TABLET PO SCH (08:32)
[2020-10-09] MEDS: HYDROcodone/APAP 7.5-325MG 1 EACH TAB PO PRN (10:43)
[2020-10-09] MEDS: LORazepam 2 MG/ML INJ IV PRN (10:43)
[2020-10-09 11:41] VITALS: BP 117/77; PULSE 94; RESP 20; TEMP 97.7
--- NOTE | 2020-10-09 19:44 | P.DS ---
Providers Date of admission: 10/06/20 19:52 Expected date of discharge: 10/09/20 Attending physician: Tera Campo Primary care physician: [facility] Course: Chief Complaint: Unsteady, not feeling well History of presenting complaint: This is a 60-year-old patient, follows with Dr. Kramer. 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 Chronic back and neck pain for which she follows with pain management with Dr. Olivo. drinking alcohol for a long time. Patient's currently sleeping/sedated with Valium. is the bedside who gives all the history. Patient has continued to drink excessively. . Rex. Patient does not eat well. Has started becoming unsteady on her feet. Not feeling well. Patient ran out of ROM patient what she normally drinks. On the last admission here patient was diagnosed to have seizures. It was then decided not to put on any seizure medication. No fever or chills reported. Diet. Admitted with acute alcohol withdrawal syndrome. Acute kidney injury. Put on a CIWA scale. IV fluids. October 07: Laying in bed. Arousable. Getting IV fluids. Oral intake no documented October 08: Laying in bed. More awake. Having auditory hallucinations. Hearing her children and her voiced. Started to eat better. Did sleep well last night. October 09: In bed. Feeling much better. Hallucinations settle down. Counseling was done about alcohol. Agreeable to take Antabuse. She has a walker at home. Has agreed to look into inpatient rehab for alcohol. Ambien resumed at 5 mg daily at bedtime. Antihypertensive discontinued as blood pressures running low. 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 Has been drinking rum Capt. Goodman Physical examination: VITAL SIGNS: 97.7, 94, 20, 111/77, 98% room air GENERAL: BMI 34.3, awake, reclining in bed EYES: Pupils equal. Conjunctiva normal. HEENT: External appearance of nose and ears normal, oral unable to assess NECK: JVD unable to assess; masses not palpable. HEART: First and second heart sounds are normal; no edema. LUNGS: Respiratory rate normal; clear to auscultation. ABDOMEN: Soft, nontender, liver spleen not palpable, no masses palpable. PSYCH: AO 3, mood and affect normal INVESTIGATIONS, reviewed in the clinical context: October 09: Potassium 4.1 creatinine 0.76 October 08: Pressure 4 creatinine 1.08 October 07: Potassium 3.8 urine 30 creatinine 1.23 WBC 12.9 hemoglobin 12 platelets 273 potassium 4.3 BUN 35 creatinine 1.70 AST 40 ALT 8 Serum alcohol less than 10 EKG tracing personally reviewed by me-normal sinus rhythm. Prolonged QT Assessment and plan: -Alcohol withdrawal syndrome, improved Patient placed on CIWA scale. -Delirium tremens. Patient's having auditory hallucinations., Improved -Acute kidney injury, likely prerenal from decreased oral intake: Improved IV fluids -Acute metabolic encephalopathy multifactorial: Improving -Metabolic acidosis from renal failure: Corrected Supplement bicarbonate -History of Seizure activity secondary to alcohol. On last admission : decided to hold off any seizure medications -Alcohol use disorder Thiamine. - CIWA scale. Will be discharged on Antabuse -GERD Continue Pepcid -Essential hypertension, controlled off home medications Lisinopril, amlodipine: Both discontinued -Chronic insomnia Resume Ambien, a reduced dose of 5 mg -Chronic constipation fiber -Chronic anxiety disorder Continue Paxil Disposition: Home Patient Condition at Discharge: Fair Plan - Discharge Summary Discharge Rx Participant: No New Discharge Prescriptions: New Disulfiram [Antabuse] 250 mg PO DIRECTED #50 tablet Continue Baclofen [Lioresal] 20 mg PO TID PRN PRN Reason: Muscle Spasm HYDROcodone/APAP 7.5-325MG [White 7.5-325] 1 tab PO TID PRN PRN Reason: Pain Methylphenidate HCl [Concerta] 54 mg PO DAILY LORazepam [Ativan] 1 mg PO DAILY PRN PRN Reason: Anxiety Thiamine [Vitamin B-1] 100 mg PO DAILY Multivitamins, Thera [Multivitamin (formulary)] 1 tab PO DAILY Cyanocobalamin (Vitamin B-12) [Vitamin B-12] 1,000 mcg PO DAILY Ascorbic Acid [Vitamin C] 1,000 mg PO DAILY Omeprazole 20 mg PO BID Zolpidem [Ambien] 5 mg PO HS #0 Changed PARoxetine HCL [Paxil] 30 mg PO DAILY #0 Discontinued Furosemide [Lasix] 20 mg PO DAILY lisinopriL 40 mg PO DAILY amLODIPine [Norvasc] 5 mg PO DAILY Discharge Medication List Baclofen [Lioresal] 20 mg PO TID PRN 08/26/16 [History] Ascorbic Acid [Vitamin C] 1,000 mg PO DAILY 07/31/20 [History] Cyanocobalamin (Vitamin B-12) [Vitamin B-12] 1,000 mcg PO DAILY 07/31/20 [History] HYDROcodone/APAP 7.5-325MG [White 7.5-325] 1 tab PO TID PRN 07/31/20 [History] Multivitamins, Thera [Multivitamin (formulary)] 1 tab PO DAILY 07/31/20 [History] Thiamine [Vitamin B-1] 100 mg PO DAILY 07/31/20 [History] LORazepam [Ativan] 1 mg PO DAILY PRN 10/06/20 [History] Methylphenidate HCl [Concerta] 54 mg PO DAILY 10/06/20 [History] Omeprazole 20 mg PO BID 10/06/20 [History] Disulfiram [Antabuse] 250 mg PO DIRECTED #50 tablet 10/09/20 [Rx] PARoxetine HCL [Paxil] 30 mg PO DAILY #0 10/09/20 [Rx] Zolpidem [Ambien] 5 mg PO HS #0 10/09/20 [Rx] Follow up Appointment(s)/Referral(s): Cb Kramer MD [Primary Care Provider] - 10/21/20 9:30 am (Appointment is with Samantha. ) Patient Instructions/Handouts: Alcohol Intoxication (DC), Alcohol Withdrawal (DC) Activity/Diet/Wound Care/Special Instructions: pt has a walker at home fall precautions paxil and ambien - not a new prescription Discharge Disposition: HOME SELF-CARE
== END 2020-10-09 16:32 | disposition home or self-care (01) | DRG 896 ==
LOC: EC 18:44 → 6NMEDSUR 19:52 → 5NMEDONC 20:24
PROVIDERS: ADMIT Hospitalist; ATTEND Hospitalist
DX: F10.231 Alcohol dependence with withdrawal delirium (principal); G93.41 Metabolic encephalopathy; E87.2 Acidosis; N17.9 Acute kidney failure, unspecified; R44.0 Auditory hallucinations; E86.0 Dehydration; F32.9 Major depressive disorder, single episode, unspecified; F41.0 Panic disorder [episodic paroxysmal anxiety]; F51.04 Psychophysiologic insomnia; G47.33 Obstructive sleep apnea (adult) (pediatric); G89.29 Other chronic pain; I10 Essential (primary) hypertension; K21.9 Gastro-esophageal reflux disease without esophagitis; M19.90 Unspecified osteoarthritis, unspecified site; R56.9 Unspecified convulsions; Z79.899 Other long term (current) drug therapy; Z86.11 Personal history of tuberculosis; Z87.828 Personal history of other (healed) physical injury and trauma; Z98.42 Cataract extraction status, left eye; Z98.84 Bariatric surgery status; K59.09 Other constipation; R41.3 Other amnesia; G56.03 Carpal tunnel syndrome, bilateral upper limbs
CPT/HCPCS: 36415; 80048; 80053; 80320; 82075; 83605; 83690; 83735; 85025; 93005; 96372; 96374; 99285

== ENCOUNTER 2020-11-18 15:41 | Observation (INO) | payer BC ==
[2020-11-18] MEDS ORDERED: SODIUM CHLORIDE 0.9% 1,000 ML IV STA (16:13)
--- NOTE | 2020-11-18 16:20 | ED ---
General Adult HPI - General Chief complaint: Chest Pain Stated complaint: chest pain Time Seen by Provider: 11/18/20 16:00 Source: patient, family, RN notes reviewed, old records reviewed Mode of arrival: wheelchair Limitations: no limitations - History of Present Illness Initial comments: 60-year-old white female, alert to person and place, presents to the emergency room with . states that she had a seizure today lasting about 60 seconds. Her last seizure was one month ago when she was hospitalized here for a few days. He states that over the past week she has been having these episodes where she just stares off adn doesn't respond. She is also an alcoholic, he states that he has not had a drink in over 2 weeks. Patient stat es that she didn't know she had a seizure she was coming in for chest pain that starts on her left side and radiates to her right shoulder. She states that his pain worse with palpation. She describes it as dull but then sharp to the right shoulder. states that she's had altered mental status has been ongoing for months and has been seen by [place] [facility]. She has chronic pain but she has not been asking for her pain medications like she normally does. Patient has a left humerus fracture that was diagnosed during her last seizure and fall month ago. She has multiple bruises to her bilateral lower extremities her right upper abdomen and left mid back all in different stages of healing. -: days(s) (1) Location: chest Severity scale (1-10): 6 Quality: dull Consistency: constant Improves with: none Worsens with: other (palpation) Associated Symptoms: confusion, seizure Treatments Prior to Arrival: none - Related Data Home Medications Medication Instructions Recorded Confirmed Baclofen [Lioresal] 20 mg PO TID PRN 08/26/16 11/18/20 Ascorbic Acid [Vitamin C] 1,000 mg PO DAILY 07/31/20 11/18/20 HYDROcodone/APAP 7.5-325MG [[place] 1 tab PO TID PRN 07/31/20 11/18/20 7.5-325] Multivitamins, Thera [Multivitamin 1 tab PO DAILY 07/31/20 11/18/20 (formulary)] LORazepam [Ativan] 1 mg PO DAILY PRN 10/06/20 11/18/20 Methylphenidate HCl [Concerta] 54 mg PO DAILY 10/06/20 11/18/20 Omeprazole 20 mg PO BID 10/06/20 11/18/20 Calcium Polycarbophil [Fibercon] 625 mg PO DAILY 11/18/20 11/18/20 Disulfiram See Taper PO DIRECTED 11/18/20 11/18/20 Furosemide [Lasix] 20 mg PO DAILY 11/18/20 11/18/20 Ibuprofen [Motrin] 800 mg PO Q8H PRN 11/18/20 11/18/20 PARoxetine HCL [Paxil] 60 mg PO DAILY 11/18/20 11/18/20 Vitamin B Complex 1 cap PO DAILY 11/18/20 11/18/20 Zolpidem [Ambien] 10 mg PO HS 11/18/20 11/18/20 amLODIPine [Norvasc] 5 mg PO DAILY 11/18/20 11/18/20 lisinopriL 40 mg PO DAILY 11/18/20 11/18/20 Allergies Allergy/AdvReac Type Severity Reaction Status Date / Time duloxetine [From Cymbalta] Allergy Hallucinati Verified 10/06/20 20:36 ons fluoxetine HCl [From Prozac] Allergy Nausea Verified 10/06/20 20:36 metoclopramide HCl Allergy dystonic Verified 10/06/20 20:36 [From Reglan] reaction, UNABLE TO FOCUS Penicillins Allergy Rash/Hives Verified 10/06/20 20:36 Sulfa (Sulfonamide Allergy Rash/Hives Verified 10/06/20 20:36 Antibiotics) atomoxetine HCl AdvReac Severe Dyspnea Verified 10/06/20 20:36 [From Strattera] topiramate [From Topamax] AdvReac Unknown 50 MG BID- Verified 10/06/20 20:36 SHE COULDNT COMPLETE SENTENCE Review of Systems ROS Statement: Those systems with pertinent positive or pertinent negative responses have been documented in the HPI. ROS Other: All systems not noted in ROS Statement are negative. 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 History of Any Multi-Drug Resistant Organisms: None Reported Past Surgical History: Bariatric Surgery, Hernia Repair, Orthopedic Surgery, Tubal Ligation Additional Past Surgical History / Comment(s): gastric bypass, arthroscopic surgery bilateral knees with lateral ligament releases, umbilical hernia repair with mesh, PAIN CLINIC PROCEDURES, bilateral carpal tunnel surgery.Fx knee repair, R and L cataract surgery., detached retina Past Anesthesia/Blood Transfusion Reactions: Motion Sickness, Postoperative Nausea & Vomiting (PONV) Past Psychological History: Anxiety, Depression, Panic Disorder Smoking Status: Never smoker Past Alcohol Use History: Abuse, Daily Past Drug Use History: None Reported - Past Family History Mother Family Medical History: Cancer Additional Family Medical History / Comment(s): BOWEL AND LIVER, General Exam Limitations: no limitations, altered mental status General appearance: alert Head exam: Present: atraumatic, normocephalic, normal inspection Eye exam: Present: normal appearance, PERRL, EOMI. Absent: scleral icterus, conjunctival injection, periorbital swelling Pupils: Present: normal accommodation ENT exam: Present: normal exam, normal oropharynx, mucous membranes moist Neck exam: Present: normal inspection, full ROM. Absent: tenderness, meningismus, lymphadenopathy, thyromegaly Respiratory exam: Present: normal lung sounds bilaterally, chest wall tenderness. Absent: respiratory distress, wheezes, rales, rhonchi, stridor, accessory muscle use, decreased breath sounds Cardiovascular Exam: Present: tachycardia. Absent: JVD GI/Abdominal exam: Present: soft, normal bowel sounds. Absent: distended, tenderness, guarding, rebound, rigid Extremities exam: Present: normal inspection, full ROM, normal capillary refill, other (Bilateral lower extremity bruises and abrasions). Absent: tenderness, pedal edema, joint swelling, calf tenderness Back exam: Present: normal inspection, full ROM, other (Yellow green bruise to the mid lumbar spine). Absent: tenderness, CVA tenderness (R), CVA tenderness (L), muscle spasm, paraspinal tenderness, vertebral tenderness, rash noted Neurological exam: Present: alert Psychiatric exam: Present: normal affect, normal mood Skin exam: Present: warm, dry, intact, normal color, abrasion (Lower extremities). Absent: rash, cyanosis, diaphoretic, erythema Course Vital Signs 11/18/20 11/18/20 15:49 18:25 Temperature 99.0 F Pulse Rate 117 H 98 Respiratory 18 16 Rate Blood Pressure 118/71 136/81 O2 Sat by Pulse 92 L 100 Oximetry EKG Findings - EKG Results: EKG: sinus rhythm (Ventricular rate of 116, WA interval 0.152, QRS of 0.72, QTC of 0.461) EKG shows: tachycardia Medical Decision Making - Medical Decision Making Patient's initial heart rate was 117 with an oxygen saturation of 92% on room air. Patient's d-dimer was 2.16. Her creatinine level is 1.6 with a GFR of 35. Her creatinine was 1.7 in September and has come down over the past month but is back elevated again today. CT unable to be performed for that reason therefore a VQ scan was ordered. Magnesium is 2.4 and her glucoses 105, alcohol level is 0. Troponin is negative at 0.012 EKG showing normal sinus rhythm with no ST elevation. Patient was tested for coronavirus and was negative. Urine shows trace ketones no evidence of infection. CT of the brain shows no intracranial hemorrhage mass effect or midline shift. Pain may be related to her humeral fracture however ACS cannot be ruled out. Patient will be admitted. Case discussed with . - Lab Data Result diagrams: 11/18/20 16:15 11/18/20 16:15 Lab Results 11/18/20 11/18/20 11/18/20 Range/Units 16:15 16:15 16:15 WBC 10.0 (3.8-10.6) k/uL RBC 3.41 L (3.80-5.40) m/uL Hgb 12.0 (11.4-16.0) gm/dL Hct 36.0 (34.0-46.0) % MCV 105.6 H (80.0-100.0) fL MCH 35.1 H (25.0-35.0) pg MCHC 33.3 (31.0-37.0) g/dL RDW 15.0 (11.5-15.5) % Plt Count 308 (150-450) k/uL MPV 7.2 Neutrophils % 81 % Lymphocytes % 10 % Monocytes % 5 % Eosinophils % 2 % Basophils % 1 % Neutrophils # 8.0 H (1.3-7.7) k/uL Lymphocytes # 1.0 (1.0-4.8) k/uL Monocytes # 0.5 (0-1.0) k/uL Eosinophils # 0.2 (0-0.7) k/uL Basophils # 0.1 (0-0.2) k/uL Macrocytosis Moderate PT 9.7 (9.0-12.0) sec INR 0.9 (<1.2) APTT 23.0 (22.0-30.0) sec D-Dimer 2.16 H (<0.60) mg/L FEU Sodium (137-145) mmol/L Potassium (3.5-5.1) mmol/L Chloride (98-107) mmol/L Carbon Dioxide (22-30) mmol/L Anion Gap mmol/L BUN (7-17) mg/dL Creatinine (0.52-1.04) mg/dL Est GFR (CKD-EPI)AfAm (>60 ml/min/1.73 sqM) Est GFR (CKD-EPI)NonAf (>60 ml/min/1.73 sqM) Glucose (74-99) mg/dL Calcium (8.4-10.2) mg/dL Magnesium (1.6-2.3) mg/dL Total Bilirubin (0.2-1.3) mg/dL AST (14-36) U/L ALT (4-34) U/L Alkaline Phosphatase (38-126) U/L Troponin I (0.000-0.034) ng/mL Total Protein (6.3-8.2) g/dL Albumin (3.5-5.0) g/dL Urine Color Yellow Urine Appearance Clear (Clear) Urine pH 6.0 (5.0-8.0) Ur Specific Dar[place] 1.017 (1.001-1.035) Urine Protein Trace H (Negative) Urine Glucose (UA) Negative (Negative) Urine Ketones Trace H (Negative) Urine Blood Negative (Negative) Urine Nitrite Negative (Negative) Urine Bilirubin Negative (Negative) Urine Urobilinogen <2.0 (<2.0) mg/dL Ur Leukocyte Esterase Trace H (Negative) Urine RBC <1 (0-5) /hpf Urine WBC 1 (0-5) /hpf Ur Squamous Epith Cells <1 (0-4) /hpf Hyaline Casts 5 H (0-2) /lpf Serum Alcohol mg/dL Coronavirus (PCR) (Not Detectd) 11/18/20 11/18/20 11/18/20 Range/Units 16:15 16:15 18:14 WBC (3.8-10.6) k/uL RBC (3.80-5.40) m/uL Hgb (11.4-16.0) gm/dL Hct (34.0-46.0) % MCV (80.0-100.0) fL MCH (25.0-35.0) pg MCHC (31.0-37.0) g/dL RDW (11.5-15.5) % Plt Count (150-450) k/uL MPV Neutrophils % % Lymphocytes % % Monocytes % % Eosinophils % % Basophils % % Neutrophils # (1.3-7.7) k/uL Lymphocytes # (1.0-4.8) k/uL Monocytes # (0-1.0) k/uL Eosinophils # (0-0.7) k/uL Basophils # (0-0.2) k/uL Macrocytosis PT (9.0-12.0) sec INR (<1.2) APTT (22.0-30.0) sec D-Dimer (<0.60) mg/L FEU Sodium 136 L (137-145) mmol/L Potassium 4.4 (3.5-5.1) mmol/L Chloride 109 H (98-107) mmol/L Carbon Dioxide 17 L (22-30) mmol/L Anion Gap 10 mmol/L BUN 45 H (7-17) mg/dL Creatinine 1.60 H (0.52-1.04) mg/dL Est GFR (CKD-EPI)AfAm 40 (>60 ml/min/1.73 sqM) Est GFR (CKD-EPI)NonAf 35 (>60 ml/min/1.73 sqM) Glucose 105 H (74-99) mg/dL Calcium 9.3 (8.4-10.2) mg/dL Magnesium 2.4 H (1.6-2.3) mg/dL Total Bilirubin 0.3 (0.2-1.3) mg/dL AST 57 H (14-36) U/L ALT 16 (4-34) U/L Alkaline Phosphatase 190 H (38-126) U/L Troponin I <0.012 (0.000-0.034) ng/mL Total Protein 6.6 (6.3-8.2) g/dL Albumin 3.7 (3.5-5.0) g/dL Urine Color Urine Appearance (Clear) Urine pH (5.0-8.0) Ur Specific [place] (1.001-1.035) Urine Protein (Negative) Urine Glucose (UA) (Negative) Urine Ketones (Negative) Urine Blood (Negative) Urine Nitrite (Negative) Urine Bilirubin (Negative) Urine Urobilinogen (<2.0) mg/dL Ur Leukocyte Esterase (Negative) Urine RBC (0-5) /hpf Urine WBC (0-5) /hpf Ur Squamous Epith Cells (0-4) /hpf Hyaline Casts (0-2) /lpf Serum Alcohol <10 mg/dL Coronavirus (PCR) Not Detected (Not Detectd) Disposition Clinical Impression: Seizure, Chest pain, Humeral fracture Disposition: ADMITTED IP TO THIS [facility] Condition: Fair Referrals: Cb Kramer MD [Primary Care Provider] - 1-2 days Decision Date: 11/18/20 Decision Time: 20:03
[2020-11-18 16:28] LABS: Basophils # (A) 0.1 k/uL (0-0.2); Basophils % (A) 1 %; Eosinophils # (A) 0.2 k/uL (0-0.7); Eosinophils % (A) 2 %; Lymphocytes % (A) 10 %; MCH 35.1 pg (25.0-35.0); MCHC 33.3 g/dL (31.0-37.0); MCV 105.6 fL (80.0-100.0); Macrocytosis Moderate; Mean Platelet Volume 7.2; Monocytes # (A) 0.5 k/uL (0-1.0); Monocytes % (A) 5 %; Neutrophils % (A) 81 %; Platelet Count 308 k/uL (150-450); RBC 3.41 m/uL (3.80-5.40)
[2020-11-18 16:42] LABS: ALT 16 U/L (4-34); AST 57 U/L (14-36); African American GFR (CKD) 40 (>60 ml/min/1.73 sqM); Albumin 3.7 g/dL (3.5-5.0); Alcohol <10 mg/dL; Alkaline Phosphatase 190 U/L (38-126); Anion Gap 10 mmol/L; Blood Urea Nitrogen 45 mg/dL (7-17); Calcium 9.3 mg/dL (8.4-10.2); Carbon Dioxide 17 mmol/L (22-30); Chloride 109 mmol/L (98-107); Glucose 105 mg/dL (74-99); Magnesium 2.4 mg/dL (1.6-2.3); Non-African American GFR(CKD) 35 (>60 ml/min/1.73 sqM); Potassium 4.4 mmol/L (3.5-5.1); Sodium 136 mmol/L (137-145); Total Bilirubin 0.3 mg/dL (0.2-1.3); Total Protein 6.6 g/dL (6.3-8.2)
[2020-11-18 16:43] LABS: INR 0.9 (<1.2); Prothrombin Time 9.7 sec (9.0-12.0)
--- NOTE | 2020-11-18 17:08 | CT ---
EXAMINATION TYPE: CT brain jannette levine con DATE OF EXAM: 11/18/2020 COMPARISON: 04/17/2019 HISTORY: seizure CT DLP: 1438.5 mGycm Automated exposure control for dose reduction was used. TECHNIQUE: CT scan of the head and cervical spine are performed without contrast. FINDINGS: There is no acute intracranial hemorrhage, mass effect, or midline shift identified. The ventricles and sulci are within normal limits in size. The globes are intact and the visualized sin uses are clear. Cervical spine is visualized in its entirety from C1 through upper thoracic levels and demonstrates s traightening and reversal of the cervical lordosis. No acute fracture or subluxation. Prevertebral s oft tissue appears within normal limits. The C1-C2 articulation is unremarkable. IMPRESSION: 1. There is no acute fracture or dislocation evident in the cervical spine. 2. No acute intracranial hemorrhage, mass effect, or midline shift is seen.
[2020-11-18] MEDS ORDERED: ASPIRIN 325 MG TAB PO STA (17:12)
[2020-11-18] MEDS ORDERED: SODIUM CHLORIDE 0.9% 1,000 ML IV ONE (17:13)
[2020-11-18] MEDS ORDERED: ENOXAPARIN 80 MG/0.8 ML SYRINGE SQ STA (17:13)
[2020-11-18] MEDS ORDERED: NITROGLYCERIN OINT 1 INCH/GM PACKET TOPICAL STA (17:13)
--- NOTE | 2020-11-18 17:25 | XR ---
EXAMINATION TYPE: XR chest 2V DATE OF EXAM: 11/18/2020 CLINICAL HISTORY: Chest Pain. TECHNIQUE: Frontal and lateral view of the chest. COMPARISON: None FINDINGS: The cardiomediastinal silhouette is mildly enlarged. Pulmonary vasculature is normal. Ther e is no focal air space opacity. No pleural effusion. No pneumothorax seen. There is fracture deform ity of the left humerus. IMPRESSION: 1. Mild cardiomegaly. 2. Age-indeterminate fracture deformity of the left humerus.
[2020-11-18 18:23] LABS: Appearance,Urine Clear (Clear); Bilirubin,Urine Negative (Negative); Blood,Urine Negative (Negative); Color,Urine Yellow; Glucose,Urine (UA) Negative (Negative); Hyaline Casts,Urine 5 /lpf (0-2); Ketones,Urine Trace (Negative); Leukocyte Esterase,Urine Trace (Negative); Nitrite,Urine Negative (Negative); Protein,Urine Trace (Negative); RBC,Urine <1 /hpf (0-5); Specific Gravity,Urine 1.017 (1.001-1.035); Squamous Epithelial Cell,Urine <1 /hpf (0-4); Urobilinogen,Urine <2.0 mg/dL (<2.0); WBC,Urine 1 /hpf (0-5)
--- NOTE | 2020-11-18 19:07 | CT ---
EXAMINATION TYPE: CT angio chest DATE OF EXAM: 11/18/2020 5:56 PM COMPARISON: Same day chest x-ray HISTORY: Elevated d-dimer. CT DLP: 374.5 mGycm Automated exposure control for dose reduction was used. CONTRAST: CTA scan of the thorax is performed with IV Contrast, patient injected with 65 mL of Isovue 370, pulm onary embolism protocol. . FINDINGS: LUNGS: Tracheobronchial tree is patent. Mild bibasilar atelectasis. No acute focal airspace opacity, pleural effusion, or pneumothorax. MEDIASTINUM: There is satisfactory enhancement of the pulmonary artery and its branches, there is no CT evidence for pulmonary embolism. There are no greater than 1 cm hilar or mediastinal lymph nodes. No pericardial effusion is seen. Calcified coronary artery disease. Cardiac size is normal. OTHER: Nodular appearance of the thyroid gland. Postsurgical change of the stomach with small hiatal hernia. Cholelithiasis. Nonacute appearing sclerotic endplate irregularities of the superior endplat es of multiple midthoracic vertebral bodies. IMPRESSION: 1. NO EVIDENCE OF PULMONARY EMBOLISM. 2. NO ACUTE CARDIOPULMONARY PROCESS. 3. THYROID NODULES. RECOMMEND OUTPATIENT DEDICATED THYROID ULTRASOUND. 4. CHOLELITHIASIS. 5. MILD HEIGHT LOSS AND IRREGULARITY OF THE MID THORACIC VERTEBRAL BODY SUPERIOR ENDPLATES. SUSPECT FINDINGS ARE DUE TO DEGENERATIVE CHANGE. RECOMMEND CORRELATION WITH POINT TENDERNESS.
[2020-11-18] MEDS ORDERED: NALOXONE 0.4 MG/ML 1 ML VIAL IV PRN (19:48)
[2020-11-18] MEDS ORDERED: ACETAMINOPHEN TAB 325 MG TAB PO PRN (19:48)
[2020-11-18] MEDS: SODIUM CHLORIDE 0.9% 1,000 ML IV SCH (20:23)
--- NOTE | 2020-11-18 20:46 | NM ---
EXAMINATION TYPE: NM pul vent and perfuse DATE OF EXAM: 11/18/2020 COMPARISON: Same day chest x-ray and same day CTA chest HISTORY: Elevated d-dimer TECHNIQUE: Utilizing inhalation of 68.5 mCi Tc 99m DTPA aerosol and intravenous injection of 4.9 mCi of Tc 99m MAA, ventilation and perfusion images are acquired post injection in multiple projections. FINDINGS: Normal radiotracer distribution is noted in the lungs. There is no evidence of mismatched defects. IMPRESSION: Normal VQ scan. Very low probability of pulmonary embolism.
[2020-11-19] MEDS: PARoxetine 20 MG TAB PO SCH (12:38)
[2020-11-19] MEDS: amLODIPine 5 MG TAB PO SCH (12:38)
[2020-11-19] MEDS: THIAMINE 100 MG TAB PO SCH (12:38)
[2020-11-19] MEDS: SODIUM CHLORIDE 0.9% 1,000 ML IV SCH ×2 (12:38→23:25)
[2020-11-19] MEDS: PANTOPRAZOLE 40 MG TABLET PO SCH (12:38)
[2020-11-19] MEDS: METHYLPHENIDATE HCL 5 MG TAB PO SCH (12:39)
[2020-11-19] MEDS: HYDROcodone/APAP 7.5-325MG 1 EACH TAB PO PRN ×2 (15:52→23:25)
[2020-11-19] MEDS ORDERED: ZOLPIDEM 10 MG TAB PO SCH (21:00)
[2020-11-19 22:34] LABS: African American GFR (CKD) 70.9 (60.0-200.0); Anion Gap 13.3 mmol/L (4.00-12.00); Calcium 8.6 mg/dL (8.7-10.3); Carbon Dioxide 16.7 mmol/L (21.6-31.8); Non-African American GFR(CKD) 61.2 (60.0-200.0); Potassium 4.4 mmol/L (3.5-5.5)
--- NOTE | 2020-11-19 22:59 | P.HPIM ---
History of Present Illness H&P Date: 11/19/20 Chief Complaint: Seizures Patient is a 60-year-old female with a known history of hypertension, GERD, osteoarthritis, daily alcohol use, anxiety/depression and panic disorder presented to ER due to seizure activity. Patient states that yesterday she was arguing with her and when she turned to his side she suddenly became very shaky and crumpled onto the floor. Patient does not know whether she lost her consciousness. No bowel or bladder incontinence. No headache or dizziness. Of did not hit her head. She also felt left shoulder pain radiating to her right shoulder. Denied any palpitations. Patient was brought to the hospital by her . Patient was previously hospitalized for seizure-like activity. Currently not on any antiepileptic medications. Patient does drink daily. Patient states that he has not had a drink in over 2 weeks. Patient states that she fell on her left shoulder about 2 and a week's ago. Patient does have a previous history of left shoulder fracture. Patient had left shoulder fracture and that was diagnosed with doing her last seizure episode about a month ago. No fever no chills. No chest pain or shortness breath. No nausea vomiting or abdominal pain or diarrhea. Denies any cough or sputum production. CT head and cervical spine showed no acute fracture or localization. No acute intracranial hemorrhage mass-effect or midline shift is seen. Chest x-ray showed mild cardiomegaly. Is indeterminate fracture deformity of the left humerus. Laboratory data showed WBC 10.0 hemoglobin 12.0 platelets 308 sodium 136 potassium 4.4 chloride 109 bicarbonate 17 BUN 45 and creatinine 1.6 AST 57 ALT 16 alk phos 119 urinalysis negative for infection Serum alcohol level is less than 10 and coronavirus PCR not detected. D-dimer level is 2.16. CT angiogram negative for pulmonary embolism. VQ scan was done initially due to acute kidney injury. Review of Systems Constitutional: Patient denies any fever or chills . No generalized weakness or weight loss. Abdomen: Patient denied nausea vomiting and diarrhea and abdominal pain. Cardiovascular: Patient denies any chest pain or short of breath no palpitations. Respiratory: patient denied any cough or sputum production. No shortness of breath Neurologic: Patient denied any numbness or tingling headache. Musculoskeletal: Patient denies any complaints of joint swelling or deformity. Skin: Negative Psychiatric: Negative Endocrine: No heat or cold intolerance. No recent weight gain. Genitourinary: No dysuria or hematuria. 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 History of Any Multi-Drug Resistant Organisms: None Reported Past Surgical History: Bariatric Surgery, Hernia Repair, Orthopedic Surgery, Tubal Ligation Additional Past Surgical History / Comment(s): gastric bypass, arthroscopic surgery bilateral knees with lateral ligament releases, umbilical hernia repair with mesh, PAIN CLINIC PROCEDURES, bilateral carpal tunnel surgery.Fx knee repair, R and L cataract surgery., detached retina Past Anesthesia/Blood Transfusion Reactions: Motion Sickness, Postoperative Nausea & Vomiting (PONV) Past Psychological History: Anxiety, Depression, Panic Disorder Smoking Status: Never smoker Past Alcohol Use History: Abuse, Daily Past Drug Use History: None Reported - Past Family History Mother Family Medical History: Cancer Additional Family Medical History / Comment(s): BOWEL AND LIVER, Medications and Allergies Home Medications Medication Instructions Recorded Confirmed Type Baclofen [Lioresal] 20 mg PO TID PRN 08/26/16 11/18/20 History Ascorbic Acid [Vitamin C] 1,000 mg PO DAILY 07/31/20 11/18/20 History HYDROcodone/APAP 7.5-325MG [[place] 1 tab PO TID PRN 07/31/20 11/18/20 History 7.5-325] Multivitamins, Thera [Multivitamin 1 tab PO DAILY 07/31/20 11/18/20 History (formulary)] LORazepam [Ativan] 1 mg PO DAILY PRN 10/06/20 11/18/20 History Methylphenidate HCl [[place]a] 54 mg PO DAILY 10/06/20 11/18/20 History Omeprazole 20 mg PO BID 10/06/20 11/18/20 History Calcium Polycarbophil [Fibercon] 625 mg PO DAILY 11/18/20 11/18/20 History Disulfiram See Taper PO DIRECTED 11/18/20 11/18/20 History Furosemide [Lasix] 20 mg PO DAILY 11/18/20 11/18/20 History Ibuprofen [Motrin] 800 mg PO Q8H PRN 11/18/20 11/18/20 History PARoxetine HCL [Paxil] 60 mg PO DAILY 11/18/20 11/18/20 History Vitamin B Complex 1 cap PO DAILY 11/18/20 11/18/20 History Zolpidem [Ambien] 10 mg PO HS 11/18/20 11/18/20 History amLODIPine [Norvasc] 5 mg PO DAILY 11/18/20 11/18/20 History lisinopriL 40 mg PO DAILY 11/18/20 11/18/20 History Allergies Allergy/AdvReac Type Severity Reaction Status Date / Time duloxetine [From Cymbalta] Allergy Hallucinati Verified 10/06/20 20:36 ons fluoxetine HCl [From Prozac] Allergy Nausea Verified 10/06/20 20:36 metoclopramide HCl Allergy dystonic Verified 10/06/20 20:36 [From Reglan] reaction, UNABLE TO FOCUS Penicillins Allergy Rash/Hives Verified 10/06/20 20:36 Sulfa (Sulfonamide Allergy Rash/Hives Verified 10/06/20 20:36 Antibiotics) atomoxetine HCl AdvReac Severe Dyspnea Verified 10/06/20 20:36 [From Strattera] topiramate [From Topamax] AdvReac Unknown 50 MG BID- Verified 10/06/20 20:36 SHE COULDNT COMPLETE SENTENCE Physical Exam Vitals: Vital Signs Temp Pulse Resp BP Pulse Ox 11/19/20 10:48 90 18 122/73 95 11/19/20 08:29 97.8 F 91 18 125/74 96 11/19/20 01:57 90 18 104/70 98 11/18/20 20:18 96 20 114/75 99 11/18/20 18:25 98 16 136/81 100 11/18/20 15:49 99.0 F 117 H 18 118/71 92 L Intake and Output 11/18/20 11/19/20 11/19/20 22:59 06:59 14:59 Other: Weight 83.915 kg PHYSICAL EXAMINATION: Patient is lying in the bed comfortably, no acute distress, awake alert and oriented.anxious HEENT: Normocephalic. Neck is supple. Pupils reactive. Nostrils clear. Oral ca vity is moist. Ears reveal no drainage. Neck reveals no JVD, carotid bruits, or thyromegaly. CHEST EXAMINATION: Trachea is central. Symmetrical expansion. Lung hunter clear to auscultation and percussion. CARDIAC: Normal S1, S2 with no gallops. No murmurs ABDOMEN: Soft. Bowel sounds normal. No organomegaly. No abdominal bruits. Extremities: reveal no edema. No clubbing or cyanosis Neurologically awake, alert, oriented x3 with well-coordinated movements. No focal deficits noted Skin: No rash or skin lesions. Psychiatric: Coperative. Nonsuicidal Musculoskeletal: No joint swelling or deformity. Normal range of motion. Results CBC & Chem 7: 11/18/20 16:15 11/19/20 12:32 Labs: Abnormal Lab Results - Last 24 Hours (Table) 11/18/20 11/18/20 11/18/20 Range/Units 16:15 16:15 16:15 RBC 3.41 L (3.80-5.40) m/uL MCV 105.6 H (80.0-100.0) fL MCH 35.1 H (25.0-35.0) pg Neutrophils # 8.0 H (1.3-7.7) k/uL D-Dimer 2.16 H (<0.60) mg/L FEU Sodium (137-145) mmol/L Chloride (98-107) mmol/L Carbon Dioxide (22-30) mmol/L BUN (7-17) mg/dL Creatinine (0.52-1.04) mg/dL Glucose (74-99) mg/dL Magnesium (1.6-2.3) mg/dL AST (14-36) U/L Alkaline Phosphatase (38-126) U/L Urine Protein Trace H (Negative) Urine Ketones Trace H (Negative) Ur Leukocyte Esterase Trace H (Negative) Hyaline Casts 5 H (0-2) /lpf 11/18/20 Range/Units 16:15 RBC (3.80-5.40) m/uL MCV (80.0-100.0) fL MCH (25.0-35.0) pg Neutrophils # (1.3-7.7) k/uL D-Dimer (<0.60) mg/L FEU Sodium 136 L (137-145) mmol/L Chloride 109 H (98-107) mmol/L Carbon Dioxide 17 L (22-30) mmol/L BUN 45 H (7-17) mg/dL Creatinine 1.60 H (0.52-1.04) mg/dL Glucose 105 H (74-99) mg/dL Magnesium 2.4 H (1.6-2.3) mg/dL AST 57 H (14-36) U/L Alkaline Phosphatase 190 H (38-126) U/L Urine Protein (Negative) Urine Ketones (Negative) Ur Leukocyte Esterase (Negative) Hyaline Casts (0-2) /lpf Thrombosis Risk Factor Assmnt - DVT/VTE Prophylaxis DVT/VTE Prophylaxis: Pharmacologic Prophylaxis ordered Assessment and Plan Assessment: Acute generalized shakiness possible panic episode versus seizure-like activity. Left shoulder pain with history of humerus fracture. Severe alcohol abuse. Patient states that she quit 2 weeks ago Recent admission with alcohol withdrawal seizures. Acute kidney injury likely prerenal Hypovolemic hyponatremia Macrocytosis Mild transaminitis Anxiety/depression/panic disorder Osteoarthritis History of head injury in 2007 with residual short-term memory loss. History of positive TB skin test with the next treatment Chronic back pain and neck pain DVT prophylaxis with heparin subcu Plan: Patient will be continued on seizure precautions and fall precautions. Continue with IV hydration and monitor renal function. Monitor for alcohol withdrawal symptoms. Continued pain management with [place] 7.5 as per home regimen. Continue thiamine and multivitamins. Neurology was consulted. Continue to follow closely. Time with Patient: Greater than 30
[2020-11-19] MEDS: HEPARIN SODIUM,PORCINE/PF 5,000 UNIT/0.5 ML SYRINGE SQ SCH (23:25)
[2020-11-20] MEDS: PANTOPRAZOLE 40 MG TABLET PO SCH (08:23)
[2020-11-20] MEDS: PARoxetine 20 MG TAB PO SCH (08:23)
[2020-11-20] MEDS: THIAMINE 100 MG TAB PO SCH (08:23)
[2020-11-20] MEDS: amLODIPine 5 MG TAB PO SCH (08:23)
[2020-11-20] MEDS: HEPARIN SODIUM,PORCINE/PF 5,000 UNIT/0.5 ML SYRINGE SQ SCH ×2 (08:23→16:30)
[2020-11-20 08:27] VITALS: TEMP 98.8
[2020-11-20] MEDS: HYDROcodone/APAP 7.5-325MG 1 EACH TAB PO PRN ×2 (08:30→16:29)
[2020-11-20] MEDS: METHYLPHENIDATE HCL 5 MG TAB PO SCH ×2 (08:32→12:59)
[2020-11-20 09:23] LABS: HCT 29.2 % (37.2-46.3); HGB 9.2 g/dL (12.0-15.0); MCH 33.9 pg (27.0-32.0); MCHC 31.5 g/dL (32.0-37.0); MCV 107.7 fL (80.0-97.0); Mean Platelet Volume 9.9 fL (9.5-12.2); Platelet Count 218 X 10*3/uL (140-440); RBC 2.71 X 10*6/uL (4.10-5.20); RDW 15.3 % (11.5-14.5); WBC 6.82 X 10*3/uL (4.50-10.00)
[2020-11-20 09:40] LABS: African American GFR (CKD) 92.9 (60.0-200.0); Anion Gap 7.7 mmol/L (4.00-12.00); BUN/Creat Ratio 22.5 Ratio (12.00-20.00); Calcium 8.2 mg/dL (8.7-10.3); Carbon Dioxide 20.3 mmol/L (21.6-31.8); Non-African American GFR(CKD) 80.1 (60.0-200.0)
[2020-11-20 10:23] LABS: Amphetamine Screen,Urine Detected (NotDetected); Barbiturate Screen,Urine Not Detected (NotDetected); Benzodiazepines Screen,Urine Not Detected (NotDetected); Cocaine Screen,Urine Not Detected (NotDetected); Methadone Screen, Urine Not Detected (NotDetected); Opiate Screen,Urine Detected (NotDetected); Oxycodone Screen, Urine Not Detected (NotDetected); Phencyclidine Screen,Urine Not Detected (NotDetected); Tricyclic Antidepressant,Urine Not Detected (NotDetected); Urn Cannabinoid Scrn Not Detected (NotDetected)
[2020-11-20 11:19] LABS: Basophils # (A) 0.06 X 10*3/uL (0.00-0.10); Basophils % (A) 0.9 %; Eosinophils # (A) 0.49 X 10*3/uL (0.04-0.35); Eosinophils % (A) 7.2 %; Lymphocytes % (A) 38.1 %; Monocytes # (A) 0.59 X 10*3/uL (0.20-1.00); Monocytes % (A) 8.7 %; Neutrophils # (A) 3.05 X 10*3/uL (1.80-7.70); Neutrophils % (A) 44.7 %
[2020-11-20 11:20] LABS: Macrocytosis (M) 2+
[2020-11-20] MEDS: SODIUM CHLORIDE 0.9% 1,000 ML IV SCH (12:59)
[2020-11-20] MEDS ORDERED: levETIRAcetam 500 MG TAB PO SCH (13:45)
--- NOTE | 2020-11-20 13:48 | EEG ---
ELECTROENCEPHALOGRAM REPORT DATE OF SERVICE: 11/20/2020 PREAMBLE: This is a 60-year-old female with seizure. EEG FINDINGS: This is a 21 channel routine EEG recording in a patient utilizing 10/20 international system with referential and bipolar montages. The background consists of well developed, well regulated, moderate to high amplitude activity in the 10 hertz alpha. Background is posterior dominant and reactive to eye opening and closing. Photic driving response was seen with some flash frequencies. Different stages of sleep were not seen. Hyperventilation was not performed. No focal or generalized epileptiform activity was seen. IMPRESSION: This is a normal awake and drowsy EEG. No focal, lateralized, or epileptiform activity was seen. Normal EEG does not rule out seizure disorder. If your suspicion for seizures is high, suggest prolonged, sleep-deprived EEG. MMODL / IJN: [id number] /
--- NOTE | 2020-11-20 14:45 | US ---
EXAMINATION TYPE: US carotid duplex BILAT DATE OF EXAM: 11/20/2020 COMPARISON: NONE CLINICAL HISTORY: sYNCOPE VSS SEIZURE. seizures, memory loss. EXAM MEASUREMENTS: RIGHT: Peak Systolic Velocity (PSV) cm/sec ----- Right CCA: 88.7 ----- Right ICA: 118.1 ----- Right ECA: 143.6 ICA/CCA ratio: 1.3 RIGHT: End Diastole cm/sec ----- Right CCA: 24.1 ----- Right ICA: 43.2 ----- Right ECA: 19.5 LEFT: Peak Systolic Velocity (PSV) cm/sec ----- Left CCA: 85.4 ----- Left ICA: 145.6 ----- Left ECA: 98.4 ICA/CCA ratio: 1.7 LEFT: End Diastole cm/sec ----- Left CCA: 27.3 ----- Left ICA: 23.4 ----- Left ECA: 12.8 VERTEBRALS (direction of flow): Right Vertebral: Antegrade Left Vertebral: Antegrade Rhythm: Normal Mild atherosclerotic changes, no stenosis. Bilateral thyroid nodules noted. Grayscale, color Doppler, spectral Doppler imaging performed of the carotid arteries. Waveform analys is does not show significant stenosis of the internal carotid arteries. IMPRESSION: No hemodynamic significant stenosis of the proximal internal carotid arteries by Doppler criteria, an indirect measurement of carotid stenosis NASCET criteria was used in interpretation of this exam? Criteria for Assigning % of Stenosis / Diameter reduction (Estimation based on the indirect measurements of the internal carotid artery velocities (ICA PSV). 1. Normal (no stenosis)=ICA PSV < 125 cm/s: ratio < 2.0: ICA EDV<40 cm/s. 2. Less than 50% stenosis=ICA PSV < 125 cm/s: ratio < 2.0: ICA EDV<40 cm/s. 3. 50 to 69% stenosis=ICA PSV of 125 to 230 cm/s: ration 2.0 ? 4.0: ICA EDV 40-100 cm/s. 4. Greater than 70% stenosis to near occlusion= ICA PSV > 230 cm/s: ratio > 4.0: ICA EDV > 100 cm/s. 5. Near occlusion= ICA PSV velocities may be low or undetectable: variable ratio and ICA EDV. 6. Total occlusion=unable to detect flow.
[2020-11-20 15:09] VITALS: BP 145/72; PULSE 85; RESP 17
--- NOTE | 2020-11-20 16:06 | P.CNNES ---
History of Present Illness Consult date: 11/20/20 Requesting physician: Esperanza Little Reason for Consult: Possible seizures History of Present Illness: Patient is a 60-year-old female came to the hospital on 11/18/2020 for seizure. Patient has history of alcoholism, and she had two seizures on 08/01/2020, which was felt to be related to alcohol withdrawal. Her EEG was normal. Patient was not placed on any seizure medication and discharged home. Patient states that she has not drank any alcohol for last 3 weeks. Patient came to the hospital because she had another seizure lasting about 2-3 minutes. Patient was standing in front of the couch when her whole body went into a contraction and she started having a seizure. She fell on the couch and then rolled over onto the floor. She was drooling and also bit inside of her lip, but not the time. No loss of control of urine. Patient did lose consciousness. Patient states that over the past week she has been having these episodes where she wakes up, and just stares off and doesn't respond. She is also noticing losing short-term memory. She sometimes loses memory of 3-4 days at a time. Vital signs on arrival blood pressure 118/71, pulse rate 117 and temperature 99.0. Patient had a computed tomography scan of head, which revealed no acute intracranial hemorrhage, mass effect or midline shift. CT of the cervical spine showed no acute fracture or dislocation evident in the cervical spine. EKG shows sinus tachycardia. Chest x-ray showed mild cardiomegaly. Age indeterminate fracture deformity of the left humerus. CTA of the chest showed no evidence of pulmonary embolism. No acute cardio permitted process. Thyroid nodules, cholelithiasis. Mild height loss and irregularity of the mid thoracic vertebral body superior endplates. Suspect findings are due to degenerative change. Recommend correlation with point tenderness. VQ scan was normal. Very low probability of pulmonary embolism. Patient's urine drug screen is positive for opiates and amphetamines. Blood L Britton negative. Prone of virus PCR negative, UA negative. Blood test shows normal WBC hemoglobin 12.0 with elevated MCV 105.6. Platelets 308. PT/PTT normal. Sodium 136 potassium 4.4, BUN was 45 creatinine 1.60, which is now normal 18 and 0.8 respectively. AST is mildly elevated 57, ALT 16. Troponin negative. Patient states that she has had MRI of the brain performed at Dr. Jacobs office. Patient has been seen by myself on 08/01/2020 for new onset seizure. It was felt to be related to alcohol withdrawal. Patient had an EEG performed at the time which was normal. No epileptiform activity was seen. Patient was not placed on any seizure medication. Patient's home medications include Paxil 60 mg, Ambien 10 mg, lisinopril 40 mg, amlodipine 5 mg Lasix, lorazepam, Concerta 54 mg, Ashley and baclofen 20 mg 3 times a day when necessary. Patient has drank a whole life, but only in the last 2-3 years it became excessive when she would drink up to fifth a day of captain alonzo. Review of Systems Patient complains of dizziness, memory loss, left shoulder pain. She has chronic left shoulder weakness. Denies any chest pain shortness of breath wheezing or cough. Denies any double vision, loss of vision. No rash. No fever or chills. 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 History of Any Multi-Drug Resistant Organisms: None Reported Past Surgical History: Bariatric Surgery, Hernia Repair, Orthopedic Surgery, Tubal Ligation Additional Past Surgical History / Comment(s): gastric bypass, arthroscopic surgery bilateral knees with lateral ligament releases, umbilical hernia repair with mesh, PAIN CLINIC PROCEDURES, bilateral carpal tunnel surgery.Fx knee repair, R and L cataract surgery., detached retina Past Anesthesia/Blood Transfusion Reactions: Motion Sickness, Postoperative Nausea & Vomiting (PONV) Past Psychological History: Anxiety, Depression, Panic Disorder Smoking Status: Never smoker Past Alcohol Use History: Abuse, Daily Past Drug Use History: None Reported - Past Family History Mother Family Medical History: Cancer Additional Family Medical History / Comment(s): BOWEL AND LIVER, Medications and Allergies Home Medications Medication Instructions Recorded Confirmed Type Baclofen [Lioresal] 20 mg PO TID PRN 08/26/16 11/18/20 History Ascorbic Acid [Vitamin C] 1,000 mg PO DAILY 07/31/20 11/18/20 History HYDROcodone/APAP 7.5-325MG [Ashley 1 tab PO TID PRN 07/31/20 11/18/20 History 7.5-325] Multivitamins, Thera [Multivitamin 1 tab PO DAILY 07/31/20 11/18/20 History (formulary)] LORazepam [Ativan] 1 mg PO DAILY PRN 10/06/20 11/18/20 History Methylphenidate HCl [Concerta] 54 mg PO DAILY 10/06/20 11/18/20 History Omeprazole 20 mg PO BID 10/06/20 11/18/20 History Calcium Polycarbophil [Fibercon] 625 mg PO DAILY 11/18/20 11/18/20 History Disulfiram See Taper PO DIRECTED 11/18/20 11/18/20 History Furosemide [Lasix] 20 mg PO DAILY 11/18/20 11/18/20 History Ibuprofen [Motrin] 800 mg PO Q8H PRN 11/18/20 11/18/20 History PARoxetine HCL [Paxil] 60 mg PO DAILY 11/18/20 11/18/20 History Vitamin B Complex 1 cap PO DAILY 11/18/20 11/18/20 History Zolpidem [Ambien] 10 mg PO HS 11/18/20 11/18/20 History amLODIPine [Norvasc] 5 mg PO DAILY 11/18/20 11/18/20 History lisinopriL 40 mg PO DAILY 11/18/20 11/18/20 History Allergies Allergy/AdvReac Type Severity Reaction Status Date / Time duloxetine [From Cymbalta] Allergy Hallucinati Verified 10/06/20 20:36 ons fluoxetine HCl [From Prozac] Allergy Nausea Verified 10/06/20 20:36 metoclopramide HCl Allergy dystonic Verified 10/06/20 20:36 [From Reglan] reaction, UNABLE TO FOCUS Penicillins Allergy Rash/Hives Verified 10/06/20 20:36 Sulfa (Sulfonamide Allergy Rash/Hives Verified 10/06/20 20:36 Antibiotics) atomoxetine HCl AdvReac Severe Dyspnea Verified 10/06/20 20:36 [From Strattera] topiramate [From Topamax] AdvReac Unknown 50 MG BID- Verified 10/06/20 20:36 SHE COULDNT COMPLETE SENTENCE Physical Examination - Vital Signs Vital Signs: Vital Signs Temp Pulse Pulse Resp BP BP Pulse Ox 11/20/20 08:17 98 11/20/20 07:00 98.8 F 86 19 151/81 97 11/20/20 01:58 98.5 F 88 14 133/78 98 11/19/20 20:36 99.0 F 85 16 130/76 95 11/19/20 19:52 98.1 F 87 18 125/78 98 11/19/20 15:59 97.6 F 93 16 128/82 96 11/19/20 10:48 90 18 122/73 95 Intake and Output 11/19/20 11/20/20 11/20/20 22:59 06:59 14:59 Intake Total 180 Balance 180 Intake: Oral 180 Other: # Voids 1 Weight 83.915 kg Patient is a late middle aged female, very pleasant, in no acute distress. Patient is alert awake oriented to time place and person. Speech and language functions are normal. Attention, concentration and fund of knowledge is adequate. On cranial examination, pupils are round and reacting to light, visual hunter are full on confrontation, extraocular muscles are intact with no nystagmus. Face is symmetric, tongue protrudes to the midline. Palatal elevation and sensation normal, hearing and shoulder shrug normal, facial sensation normal. Shoulder shrug normal. On muscle strength testing, patient has chronic weakness of the left shoulder from previous shoulder issue. Her left arm was weak from decreased effort from left shoulder pain. Otherwise the strength is normal in the right arm and both legs. Deep tendon reflexes are 1+ and plantars downgoing. Sensory to touch is equal with no neglect. Cerebellar function showed no ataxia for [id number] testing on the right, cannot check on the left. No dysdiadochokinesia. Tone and bulk of muscles normal. Patient does have mild fine tremors of outstretched hands. Gait normal. On general examination, there is no carotid bruit or murmur, S1-S2 audible. Abdomen is soft nontender. Chest is clear. Peripheral pulses are present. No edema. Results - Laboratory Findings CBC and BMP: 11/20/20 05:58 11/20/20 05:58 Abnormal Lab Findings: Abnormal Labs 11/18/20 11/18/20 11/18/20 16:15 16:15 16:15 RBC 3.41 L Hgb Hct MCV 105.6 H MCH 35.1 H MCHC RDW Neutrophils # 8.0 H D-Dimer 2.16 H Sodium Chloride Carbon Dioxide Anion Gap BUN Creatinine BUN/Creatinine Ratio Glucose Calcium Magnesium AST Alkaline Phosphatase Urine Protein Trace H Urine Ketones Trace H Ur Leukocyte Esterase Trace H Hyaline Casts 5 H Urine Opiates Screen Ur Amphetamines Screen 11/18/20 11/19/20 11/20/20 16:15 12:32 05:58 RBC 2.71 L Hgb 9.2 L Hct 29.2 L MCV 107.7 H MCH 33.9 H MCHC 31.5 L RDW 15.3 H Neutrophils # D-Dimer Sodium 136 L 146 H Chloride 109 H 116 H Carbon Dioxide 17 L 16.7 L Anion Gap 13.30 H BUN 45 H Creatinine 1.60 H BUN/Creatinine Ratio 24.00 H Glucose 105 H Calcium 8.6 L Magnesium 2.4 H AST 57 H Alkaline Phosphatase 190 H Urine Protein Urine Ketones Ur Leukocyte Esterase Hyaline Casts Urine Opiates Screen Ur Amphetamines Screen 11/20/20 11/20/20 05:58 09:52 RBC Hgb Hct MCV MCH MCHC RDW Neutrophils # D-Dimer Sodium Chloride 113 H Carbon Dioxide 20.3 L Anion Gap BUN Creatinine BUN/Creatinine Ratio 22.50 H Glucose Calcium 8.2 L Magnesium AST Alkaline Phosphatase Urine Protein Urine Ketones Ur Leukocyte Esterase Hyaline Casts Urine Opiates Screen Detected H Ur Amphetamines Screen Detected H Assessment and Plan Assessment: * Possible unprovoked seizure. Patient has long-standing history of alcoholism, and previous seizures were considered alcohol withdrawal related. However patient states that she has not drank alcohol for last 3 weeks. She possibly has developed underlying seizure disorder. * Alcoholism * Memory loss, which could be related to alcoholism. Rule out nutritional deficiency. Plan: * EEG was again performed today, which was normal. As her current seizure is probably unprovoked, we will start her on Keppra 500 mg twice a day. * Patient will follow up with Dr. Cervantes for seizure disorder, but will continue to follow up with Dr. Jacobs for pain management. Patient probably will need prolonged EEG monitoring to evaluate for interictal epileptiform activity. * Patient was informed of [place] state law of no driving unless seizure free for 6 months, climbing ladders, operating dangerous machinery or unsupervised swimming. * Carotid Doppler was also performed, which revealed no hemodynamic significant stenosis of proximal ICAs. Antegrade flow in both vertebral arteries. * For her memory disturbance we will check B12, folate, B6, MMA, B1 level. The results can be followed up as an outpatient. * Neurologically clear for discharge.
[2020-11-21 04:05] LABS: Folate, Serum >24.0 ng/mL
[2020-11-22 13:51] LABS: Methylmalonic Acid 0.34 umol/L (<0.40)
== END 2020-11-20 18:43 | disposition home or self-care (01) ==
LOC: EC 15:41 → 1SOBS 21:36 → 6NMEDSUR 21:51
PROVIDERS: ADMIT Hospitalist; ATTEND Hospitalist
DX: R56.9 Unspecified convulsions (principal); Z20.822 Contact with and (suspected) exposure to COVID-19; D75.89 Other specified diseases of blood and blood-forming organs; E04.2 Nontoxic multinodular goiter; E87.1 Hypo-osmolality and hyponatremia; F32.9 Major depressive disorder, single episode, unspecified; F41.0 Panic disorder [episodic paroxysmal anxiety]; G89.29 Other chronic pain; I10 Essential (primary) hypertension; K80.20 Calculus of gallbladder without cholecystitis without obstruction; M19.90 Unspecified osteoarthritis, unspecified site; N17.9 Acute kidney failure, unspecified; Z79.899 Other long term (current) drug therapy; Z87.828 Personal history of other (healed) physical injury and trauma; Z98.42 Cataract extraction status, left eye
CPT/HCPCS: 96361 ×4; 96372 ×3; 96360; 99285; 36415; 95816; 93005; 84207; 83921; 85379; 84425; 80053; 80048 ×2; 82607; 82746; 83735; 84484; 85025 ×2; 85610; 85730; 81001; 80306; 80320; 87635; 71046; 93880; 72125; 70450; 71275; 78582; G0378 ×3; A9540; A9567; J1650; Q9967; J1644 ×2

== ENCOUNTER 2021-06-03 11:45 | Inpatient (IN) | payer BC ==
[2021-06-03] MEDS ORDERED: SODIUM CHLORIDE 0.9% 500 ML 500 ML IV STA (11:59)
[2021-06-03 12:07] LABS: Glucose,Whole Blood 79 mg/dL (75-99)
--- NOTE | 2021-06-03 12:29 | ED ---
General Adult HPI - General Chief complaint: Fall Stated complaint: AMS/Fall Time Seen by Provider: 06/03/21 11:54 Source: patient, family, RN notes reviewed, old records reviewed Mode of arrival: wheelchair - History of Present Illness Initial comments: 60 yo female presenting for evaluation of increased lethargy, and multiple falls. Patient is accompanied by her states that she was more difficult to arouse. He states that she has been very sleepy and this is not totally abnormal for this patient however today was somewhat worse. There has been multiple falls. No head injury reported. Patient denies pain complaints. She does have a previous history of alcohol use. Uncertain if she has had anything to drink in the past 24 hours. - Related Data Home Medications Medication Instructions Recorded Confirmed Baclofen [Lioresal] 20 mg PO TID PRN 08/26/16 06/03/21 Ascorbic Acid [Vitamin C] 1,000 mg PO DAILY 07/31/20 06/03/21 HYDROcodone/APAP 7.5-325MG [[place] 1 tab PO TID PRN 07/31/20 06/03/21 7.5-325] Multivitamins, Thera [Multivitamin 1 tab PO DAILY 07/31/20 06/03/21 (formulary)] LORazepam [Ativan] 1 mg PO DAILY PRN 10/06/20 06/03/21 Methylphenidate HCl [Concerta] 54 mg PO DAILY 10/06/20 06/03/21 Omeprazole 20 mg PO BID 10/06/20 06/03/21 Calcium Polycarbophil [Fibercon] 625 mg PO DAILY 11/18/20 06/03/21 PARoxetine HCL [Paxil] 60 mg PO DAILY 11/18/20 06/03/21 Vitamin B Complex 1 cap PO DAILY 11/18/20 06/03/21 Zolpidem [Ambien] 10 mg PO HS 11/18/20 06/03/21 amLODIPine [Norvasc] 5 mg PO DAILY 11/18/20 06/03/21 Furosemide [Lasix] 20 mg PO DAILY 06/03/21 06/03/21 Lacosamide [Vimpat] 50 mg PO BID 06/03/21 06/03/21 traZODone HCL 50 mg PO HS 06/03/21 06/03/21 Previous Rx's Medication Instructions Recorded lisinopriL [Zestril] 10 mg PO DAILY #30 tab 11/20/20 Allergies Allergy/AdvReac Type Severity Reaction Status Date / Time Iodinated Contrast Media Allergy Unknown Verified 06/03/21 13:04 Penicillins Allergy Rash/Hives Verified 06/03/21 11:52 Sulfa (Sulfonamide Allergy Rash/Hives Verified 06/03/21 11:52 Antibiotics) atomoxetine HCl AdvReac Severe SYMPATHETIC Verified 06/03/21 13:04 [From Strattera] RESPONSE; DIARRHEA WAS ONE OF MANY REACTIONS. S topiramate [From Topamax] AdvReac Unknown 50 MG BID- Verified 06/03/21 11:52 SHE COULDNT COMPLETE SENTENCE duloxetine [From Cymbalta] AdvReac Hallucinati Verified 06/03/21 13:04 ons fluoxetine HCl [From Prozac] AdvReac Nausea Verified 06/03/21 13:04 metoclopramide HCl AdvReac dystonic Verified 06/03/21 13:04 [From Reglan] reaction, UNABLE TO FOCUS Review of Systems ROS Statement: Those systems with pertinent positive or pertinent negative responses have been documented in the HPI. ROS Other: All systems not noted in ROS Statement are negative. 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 History of Any Multi-Drug Resistant Organisms: None Reported Past Surgical History: Bariatric Surgery, Hernia Repair, Orthopedic Surgery, Tubal Ligation Additional Past Surgical History / Comment(s): gastric bypass, arthroscopic surgery bilateral knees with lateral ligament releases, umbilical hernia repair with mesh, PAIN CLINIC PROCEDURES, bilateral carpal tunnel surgery.Fx knee repair, R and L cataract surgery., detached retina Past Anesthesia/Blood Transfusion Reactions: Motion Sickness, Postoperative Nausea & Vomiting (PONV) Past Psychological History: Anxiety, Depression, Panic Disorder Smoking Status: Never smoker Past Alcohol Use History: Abuse, Daily Past Drug Use History: None Reported - Past Family History Mother Family Medical History: Cancer Additional Family Medical History / Comment(s): BOWEL AND LIVER, General Exam General appearance: lethargic Head exam: Present: atraumatic, normocephalic Eye exam: Present: normal appearance, PERRL Neck exam: Present: normal inspection. Absent: tenderness, meningismus Respiratory exam: Present: normal lung sounds bilaterally. Absent: respiratory distress Cardiovascular Exam: Present: regular rate, normal rhythm GI/Abdominal exam: Present: soft. Absent: distended, tenderness, guarding, rebound Extremities exam: Present: normal capillary refill Neurological exam: Present: alert, CN II-XII intact. Absent: oriented X3 (Slow to respond), motor sensory deficit Skin exam: Present: warm, dry Course Vital Signs 06/03/21 06/03/21 06/03/21 11:46 12:52 15:00 Temperature 97.0 F L Pulse Rate 86 72 72 Respiratory 18 18 18 Rate Blood Pressure 128/82 133/77 140/75 O2 Sat by Pulse 96 98 95 Oximetry EKG Findings - EKG Comments: EKG Findings:: Sinus rhythm rate of 76, CT interval 150, QRS duration 88, QTC 410, no ST segment elevation. Medical Decision Making - Medical Decision Making 60-year-old female who presents for evaluation of increased lethargy. Patient currently being treated for dental infection, was scheduled for extraction. She is currently on clindamycin. She has not had any measured fevers. She normally does sleep quite a bit but this has been increased according to her who is at bedside. There is no focal numbness or weakness. Vital signs are stable upon arrival. Head CT is negative. She's had multiple falls and therefore x- rays of the chest and pelvis are performed which are negative for traumatic injury. She does have a leukocytosis of 21. She has acute kidney injury with a creatinine of 1.33. She started on IV fluids and IV clindamycin. She will be admitted to Dr. Campo who is aware. Facial exam: No unilateral facial swelling. No stridor. No induration in the submandibular region. Poor dentition. Urinalysis and urine drug screen are pending. Suspect systemic infection, patient does meet sirs criteria, possibly secondary to dental infection. - Lab Data Result diagrams: 06/03/21 12:29 06/03/21 12:29 Lab Results 06/03/21 06/03/21 06/03/21 Range/Units 12:05 12:29 12:29 WBC 21.9 H (3.8-10.6) k/uL RBC 3.77 L (3.80-5.40) m/uL Hgb 13.1 (11.4-16.0) gm/dL Hct 41.7 (34.0-46.0) % MCV 110.6 H (80.0-100.0) fL MCH 34.8 (25.0-35.0) pg MCHC 31.5 (31.0-37.0) g/dL RDW 13.8 (11.5-15.5) % Plt Count 359 (150-450) k/uL MPV 7.3 Neutrophils % (Manual) 91 % Band Neuts % (Manual) 1 % Lymphocytes % (Manual) 7 % Monocytes % (Manual) 2 % Neutrophils # (Manual) 20.10 H (1.3-7.7) k/uL Lymphocytes # (Manual) 1.53 (1.0-4.8) k/uL Monocytes # (Manual) 0.44 (0-1.0) k/uL Nucleated RBCs 0 (0-0) /100 WBC Manual Slide Review Performed Hypochromasia Slight Macrocytosis Marked A PT 9.5 (9.0-12.0) sec INR 0.8 (<1.2) APTT 23.2 (22.0-30.0) sec Sodium (137-145) mmol/L Potassium (3.5-5.1) mmol/L Chloride (98-107) mmol/L Carbon Dioxide (22-30) mmol/L Anion Gap mmol/L BUN (7-17) mg/dL Creatinine (0.52-1.04) mg/dL Est GFR (CKD-EPI)AfAm (>60 ml/min/1.73 sqM) Est GFR (CKD-EPI)NonAf (>60 ml/min/1.73 sqM) Glucose (74-99) mg/dL POC Glucose (mg/dL) 79 (75-99) mg/dL POC Glu Devops Consultant ID Aashish Belcher Nicole Plasma Lactic Acid Sukumar (0.7-2.0) mmol/L Calcium (8.4-10.2) mg/dL Magnesium (1.6-2.3) mg/dL Total Bilirubin (0.2-1.3) mg/dL AST (14-36) U/L ALT (4-34) U/L Alkaline Phosphatase (38-126) U/L Troponin I (0.000-0.034) ng/mL Total Protein (6.3-8.2) g/dL Albumin (3.5-5.0) g/dL TSH (0.465-4.680) mIU/L Urine Color Urine Appearance (Clear) Urine pH (5.0-8.0) Ur Specific Boody (1.001-1.035) Urine Protein (Negative) Urine Glucose (UA) (Negative) Urine Ketones (Negative) Urine Blood (Negative) Urine Nitrite (Negative) Urine Bilirubin (Negative) Urine Urobilinogen (<2.0) mg/dL Ur Leukocyte Esterase (Negative) Urine RBC (0-5) /hpf Urine WBC (0-5) /hpf Ur Squamous Epith Cells (0-4) /hpf Urine Bacteria (None) /hpf Hyaline Casts (0-2) /lpf Urine Mucus (None) /hpf Serum Alcohol mg/dL 06/03/21 06/03/21 06/03/21 Range/Units 12:29 12:29 12:29 WBC (3.8-10.6) k/uL RBC (3.80-5.40) m/uL Hgb (11.4-16.0) gm/dL Hct (34.0-46.0) % MCV (80.0-100.0) fL MCH (25.0-35.0) pg MCHC (31.0-37.0) g/dL RDW (11.5-15.5) % Plt Count (150-450) k/uL MPV Neutrophils % (Manual) % Band Neuts % (Manual) % Lymphocytes % (Manual) % Monocytes % (Manual) % Neutrophils # (Manual) (1.3-7.7) k/uL Lymphocytes # (Manual) (1.0-4.8) k/uL Monocytes # (Manual) (0-1.0) k/uL Nucleated RBCs (0-0) /100 WBC Manual Slide Review Hypochromasia Macrocytosis PT (9.0-12.0) sec INR (<1.2) APTT (22.0-30.0) sec Sodium 138 (137-145) mmol/L Potassium 4.7 (3.5-5.1) mmol/L Chloride 112 H (98-107) mmol/L Carbon Dioxide 18 L (22-30) mmol/L Anion Gap 8 mmol/L BUN 22 H (7-17) mg/dL Creatinine 1.33 H (0.52-1.04) mg/dL Est GFR (CKD-EPI)AfAm 50 (>60 ml/min/1.73 sqM) Est GFR (CKD-EPI)NonAf 43 (>60 ml/min/1.73 sqM) Glucose 88 (74-99) mg/dL POC Glucose (mg/dL) (75-99) mg/dL POC Glu Devops Consultant ID Plasma Lactic Acid Sukumar 1.3 (0.7-2.0) mmol/L Calcium 9.3 (8.4-10.2) mg/dL Magnesium 2.2 (1.6-2.3) mg/dL Total Bilirubin 0.8 (0.2-1.3) mg/dL AST 28 (14-36) U/L ALT 8 (4-34) U/L Alkaline Phosphatase 184 H (38-126) U/L Troponin I <0.012 (0.000-0.034) ng/mL Total Protein 6.6 (6.3-8.2) g/dL Albumin 3.2 L (3.5-5.0) g/dL TSH 1.970 (0.465-4.680) mIU/L Urine Color Urine Appearance (Clear) Urine pH (5.0-8.0) Ur Specific Boody (1.001-1.035) Urine Protein (Negative) Urine Glucose (UA) (Negative) Urine Ketones (Negative) Urine Blood (Negative) Urine Nitrite (Negative) Urine Bilirubin (Negative) Urine Urobilinogen (<2.0) mg/dL Ur Leukocyte Esterase (Negative) Urine RBC (0-5) /hpf Urine WBC (0-5) /hpf Ur Squamous Epith Cells (0-4) /hpf Urine Bacteria (None) /hpf Hyaline Casts (0-2) /lpf Urine Mucus (None) /hpf Serum Alcohol <10 mg/dL 06/03/21 Range/Units 14:45 WBC (3.8-10.6) k/uL RBC (3.80-5.40) m/uL Hgb (11.4-16.0) gm/dL Hct (34.0-46.0) % MCV (80.0-100.0) fL MCH (25.0-35.0) pg MCHC (31.0-37.0) g/dL RDW (11.5-15.5) % Plt Count (150-450) k/uL MPV Neutrophils % (Manual) % Band Neuts % (Manual) % Lymphocytes % (Manual) % Monocytes % (Manual) % Neutrophils # (Manual) (1.3-7.7) k/uL Lymphocytes # (Manual) (1.0-4.8) k/uL Monocytes # (Manual) (0-1.0) k/uL Nucleated RBCs (0-0) /100 WBC Manual Slide Review Hypochromasia Macrocytosis PT (9.0-12.0) sec INR (<1.2) APTT (22.0-30.0) sec Sodium (137-145) mmol/L Potassium (3.5-5.1) mmol/L Chloride (98-107) mmol/L Carbon Dioxide (22-30) mmol/L Anion Gap mmol/L BUN (7-17) mg/dL Creatinine (0.52-1.04) mg/dL Est GFR (CKD-EPI)AfAm (>60 ml/min/1.73 sqM) Est GFR (CKD-EPI)NonAf (>60 ml/min/1.73 sqM) Glucose (74-99) mg/dL POC Glucose (mg/dL) (75-99) mg/dL POC Glu Devops Consultant ID Plasma Lactic Acid Sukumar (0.7-2.0) mmol/L Calcium (8.4-10.2) mg/dL Magnesium (1.6-2.3) mg/dL Total Bilirubin (0.2-1.3) mg/dL AST (14-36) U/L ALT (4-34) U/L Alkaline Phosphatase (38-126) U/L Troponin I (0.000-0.034) ng/mL Total Protein (6.3-8.2) g/dL Albumin (3.5-5.0) g/dL TSH (0.465-4.680) mIU/L Urine Color Yellow Urine Appearance Clear (Clear) Urine pH 5.5 (5.0-8.0) Ur Specific Boody 1.008 (1.001-1.035) Urine Protein Negative (Negative) Urine Glucose (UA) Negative (Negative) Urine Ketones Negative (Negative) Urine Blood Negative (Negative) Urine Nitrite Positive H (Negative) Urine Bilirubin Negative (Negative) Urine Urobilinogen <2.0 (<2.0) mg/dL Ur Leukocyte Esterase Trace H (Negative) Urine RBC <1 (0-5) /hpf Urine WBC 5 (0-5) /hpf Ur Squamous Epith Cells 1 (0-4) /hpf Urine Bacteria Moderate H (None) /hpf Hyaline Casts 6 H (0-2) /lpf Urine Mucus Rare H (None) /hpf Serum Alcohol mg/dL Disposition Clinical Impression: Fall, Altered mental status, Lethargy, Sepsis Disposition: ADMITTED IP TO THIS [facility] Condition: Stable Is patient prescribed a controlled substance at d/c from ED?: No Referrals: Cb Kramer MD [Primary Care Provider] - 1-2 days Decision to Admit Reason: Admit from EC Decision Date: 06/03/21 Decision Time: 15:03
[2021-06-03 12:49] LABS: HCT 41.7 % (34.0-46.0); HGB 13.1 gm/dL (11.4-16.0); Hypochromasia Slight; INR 0.8 (<1.2); MCH 34.8 pg (25.0-35.0); MCHC 31.5 g/dL (31.0-37.0); MCV 110.6 fL (80.0-100.0); Macrocytosis Marked; Mean Platelet Volume 7.3; Partial Thromboplastin Time 23.2 sec (22.0-30.0); Platelet Count 359 k/uL (150-450); Prothrombin Time 9.5 sec (9.0-12.0); RBC 3.77 m/uL (3.80-5.40); RDW 13.8 % (11.5-15.5); WBC 21.9 k/uL (3.8-10.6)
[2021-06-03 12:51] LABS: ALT 8 U/L (4-34); AST 28 U/L (14-36); African American GFR (CKD) 50 (>60 ml/min/1.73 sqM); Albumin 3.2 g/dL (3.5-5.0); Alcohol <10 mg/dL; Alkaline Phosphatase 184 U/L (38-126); Anion Gap 8 mmol/L; Blood Urea Nitrogen 22 mg/dL (7-17); Calcium 9.3 mg/dL (8.4-10.2); Carbon Dioxide 18 mmol/L (22-30); Chloride 112 mmol/L (98-107); Glucose 88 mg/dL (74-99); Magnesium 2.2 mg/dL (1.6-2.3); Non-African American GFR(CKD) 43 (>60 ml/min/1.73 sqM); Potassium 4.7 mmol/L (3.5-5.1); Sodium 138 mmol/L (137-145); Total Bilirubin 0.8 mg/dL (0.2-1.3); Total Protein 6.6 g/dL (6.3-8.2)
--- NOTE | 2021-06-03 12:56 | XR ---
EXAMINATION TYPE: XR chest 1V portable DATE OF EXAM: 06/03/2021 COMPARISON: X-ray dated 11/18/2020 HISTORY: Pain after fall TECHNIQUE: Single frontal view of the chest is obtained. FINDINGS: Subtle opacity seen in the left midlung zone likely representing a summation of the overlying rib and scapular shadows. Minimal underlying pulmonary opacity cannot be excluded at that location. Suspecte d background of COPD changes. Grossly unremarkable lungs otherwise. No sizable pleural effusion or definite pneumothorax. No gross cardiomegaly. Aortic atherosclerotic calcifications. Osteopenia. Degenerative changes of the glenohum eral articulations. IMPRESSION: Suspected summation of shadows at the left midlung zone as described above, otherwise unremarkable jose angel ngs. No pleural effusion or pneumothorax. Other incidental findings as described above.
--- NOTE | 2021-06-03 13:04 | XR ---
EXAMINATION TYPE: XR pelvis AP view DATE OF EXAM: 06/03/2021 CLINICAL HISTORY: pain TECHNIQUE: Single view the pelvis is submitted. FINDINGS: No evidence for fracture, dislocation or bony lesion. Joint spaces are well-preserved. S I joints appear symmetric. IMPRESSION: 1. No acute fracture or dislocation seen. ICD 10 NO FRACTURE, INITIAL EVALUATION
--- NOTE | 2021-06-03 13:16 | CT ---
EXAMINATION TYPE: CT brain jannette hammonds DATE OF EXAM: 06/03/2021 COMPARISON: 11/18/20 HISTORY: Fall CT DLP: 1374.[address] of the brain was performed. The ventricles, basal cisterns and sulci overlying the cerebral convexities demonstrate mild enlargem ent. There is no evidence for intracranial hemorrhage or sulcal effacement. There is decreased attenuatio n about the periventricular white matter and deep white matter of both cerebral hemispheres, compatib le with chronic small vessel ischemia. No mass effects are seen. If symptoms persist consider MRI. Osseous calvarium is intact. IMPRESSION: 1. Age related atrophic and chronic small vessel ischemic change without acute intracranial process seen at this time. CT Cervical Spine: Unenhanced CT of the cervical spine was performed with bone and soft tissue window settings submitted . Coronal and sagittal reconstruction is obtained. There is normal alignment and prevertebral soft tissues. No evidence for acute cervical fracture . Scattered degenerative disc disease and spondylosis. Biapical scarring. IMPRESSION: 1. No evidence for acute fracture or subluxation of the cervical spine.
[2021-06-03 13:26] LABS: Band Neutrophils % 1 %; Lymphocytes # (M) 1.53 k/uL (1.0-4.8); Monocytes # (M) 0.44 k/uL (0-1.0); Neutrophils % (M) 91 %; Nucleated Red Blood Cells 0 /100 WBC (0-0); Total Cells Counted 200
[2021-06-03] MEDS ORDERED: CLINDAMYCIN 600 MG in DEXTROSE 5% IN WATER 50 ML IVPB STA ×2 (14:58)
[2021-06-03] MEDS ORDERED: NALOXONE 0.4 MG/ML 1 ML VIAL IV PRN (14:59)
[2021-06-03] MEDS ORDERED: SODIUM CHLORIDE 0.9% 1,000 ML IV SCH (15:00)
[2021-06-03 15:10] LABS: Appearance,Urine Clear (Clear); Bacteria,Urine Moderate /hpf; Bilirubin,Urine Negative (Negative); Blood,Urine Negative (Negative); Color,Urine Yellow; Glucose,Urine (UA) Negative (Negative); Hyaline Casts,Urine 6 /lpf (0-2); Ketones,Urine Negative (Negative); Leukocyte Esterase,Urine Trace (Negative); Mucus,Urine Rare /hpf; Nitrite,Urine Positive (Negative); PH, Urine 5.5 (5.0-8.0); Protein,Urine Negative (Negative); RBC,Urine <1 /hpf (0-5); Specific Gravity,Urine 1.008 (1.001-1.035); Squamous Epithelial Cell,Urine 1 /hpf (0-4); Urobilinogen,Urine <2.0 mg/dL (<2.0); WBC,Urine 5 /hpf (0-5)
[2021-06-03 15:16] LABS: Amphetamine Screen,Urine Not Detected (NotDetected); Barbiturate Screen,Urine Not Detected (NotDetected); Benzodiazepines Screen,Urine Detected (NotDetected); Cocaine Screen,Urine Not Detected (NotDetected); Methadone Screen, Urine Not Detected (NotDetected); Opiate Screen,Urine Detected (NotDetected); Oxycodone Screen, Urine Not Detected (NotDetected); Phencyclidine Screen,Urine Not Detected (NotDetected); Tricyclic Antidepressant,Urine Not Detected (NotDetected); Urn Cannabinoid Scrn Not Detected (NotDetected)
[2021-06-03] MEDS ORDERED: cefTRIAXone IN SWFI 1,000 MG/10 ML SYRINGE IVP STA (15:19)
[2021-06-03] MEDS ORDERED: ZOLPIDEM 5 MG TAB PO PRN (16:56)
[2021-06-03] MEDS ORDERED: ONDANSETRON 4 MG/2 ML VIAL IVP PRN (16:57)
--- NOTE | 2021-06-03 17:01 | P.HPIM ---
History of Present Illness H&P Date: 06/03/21 Chief Complaint: Weak History of presenting complaint: This is a 60-year-old patient, follows with Dr. Kramer. 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 Chronic back and neck pain for which she follows with pain management with Dr. Olivo. drinking alcohol for a long time. Patient is brought into the ER by her . He noticed that patient was not even able to stand becoming very weak. Patient currently is been drinking one or 2 drinks of coke rum daily. Normally gets around the house, but holding on to furniture. Doesn't really eat much. When she goes out of the house she has to be supported by. Has been feeling weak diet. No fever no chills. No cough. Rather sleepy in the ER. Per the patient does sleep quite a bit at home. She also has infected tooth that is due for extraction. 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 Has been drinking rum Capt. Goodman. Lives with her Physical examination: VITAL SIGNS: [97, 84, 20, 117/77, 98% room air] GENERAL: BMI 32.4, laying in bed, lethargic but arousable. EYES: [Pupils equal. Conjunctiva liliana]l. HEENT: [External appearance of nose and ears normal, oral cavity grossly normal]. NECK: [JVD not raised; masses not palpable]. HEART: [First and second heart sounds are normal; no edema]. LUNGS:[ Respiratory rate normal; clear to auscultation]. ABDOMEN: [Soft, nontender, liver spleen not palpable, no masses palpable]. PSYCH: [Unable to assess patient rather lethargic but arousable with answer occasional question]l. MUSCULOSKELETAL:No Clubbing/cyanosis;muscles-grossly intact NEUROLOGICAL: [Cranial nerves grossly intact; no facial asymmetry, does move her limbs]. LYMPHATICS: [No lymph nodes palpable in the axilla and neck] INVESTIGATIONS, reviewed in the clinical context: White count 21.9 hemoglobin 13.1 and platelets 359 potassium 4.7 sodium 138 bicarb 18 BUN 22 creatinine 1.33 Albumin 3.2 TSH 1.9 UA positive for leukoesterase/bacteria Urine drug screen positive for opiates, benzodiazepine Serum alcohol less than 10 EKG tracing personally reviewed by me-normal sinus rhythm. Rate 76 Chest x-ray film personally reviewed by me-lungs clear Head/cervical spine/pelvic x-ray: Negative for fracture Assessment and plan: -Acute metabolic encephalopathy from renal failure. Also contribution from patient being on scheduled baclofen and 10 mg dose of Ambien. -Acute kidney injury likely prerenal from poor oral intake IV fluids -Acute kidney injury, likely prerenal from decreased oral intake: Improved IV fluids -Acute metabolic encephalopathy multifactorial: Improving -Acute Metabolic acidosis from renal failure: Sodium bicarbonate drip - Seizure activity secondary to alcohol. Lymphatics 50 mg twice a day -Alcohol use disorder Thiamine. - CIWA scale. -GERD Continue Pepcid -Essential hypertension, Follow blood pressure closely -Chronic insomnia Trazodone -Chronic constipation fiber -Chronic anxiety disorder Continue Paxil -Alcoholic myopathy PTOT Fall precautions. PT OT. Resume home medications. Sodium bicarbonate drip with D5W. Hold off Zestril and amlodipine presently. Cutback dose of Ambien to 2.5 mg. Change baclofen to 5 mg every 8 when necessary. 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 History of Any Multi-Drug Resistant Organisms: None Reported Past Surgical History: Bariatric Surgery, Hernia Repair, Orthopedic Surgery, Tubal Ligation Additional Past Surgical History / Comment(s): gastric bypass, arthroscopic surgery bilateral knees with lateral ligament releases, umbilical hernia repair with mesh, PAIN CLINIC PROCEDURES, bilateral carpal tunnel surgery.Fx knee repair, R and L cataract surgery., detached retina Past Anesthesia/Blood Transfusion Reactions: Motion Sickness, Postoperative Nausea & Vomiting (PONV) Past Psychological History: Anxiety, Depression, Panic Disorder Smoking Status: Never smoker Past Alcohol Use History: Abuse, Daily Past Drug Use History: None Reported - Past Family History Mother Family Medical History: Cancer Additional Family Medical History / Comment(s): BOWEL AND LIVER, Medications and Allergies Home Medications Medication Instructions Recorded Confirmed Type Baclofen [Lioresal] 20 mg PO TID PRN 08/26/16 06/03/21 History Ascorbic Acid [Vitamin C] 1,000 mg PO DAILY 07/31/20 06/03/21 History HYDROcodone/APAP 7.5-325MG [[place] 1 tab PO TID PRN 07/31/20 06/03/21 History 7.5-325] Multivitamins, Thera [Multivitamin 1 tab PO DAILY 07/31/20 06/03/21 History (formulary)] LORazepam [Ativan] 1 mg PO DAILY PRN 10/06/20 06/03/21 History Methylphenidate HCl [Concerta] 54 mg PO DAILY 10/06/20 06/03/21 History Omeprazole 20 mg PO BID 10/06/20 06/03/21 History Calcium Polycarbophil [Fibercon] 625 mg PO DAILY 11/18/20 06/03/21 History PARoxetine HCL [Paxil] 60 mg PO DAILY 11/18/20 06/03/21 History Vitamin B Complex 1 cap PO DAILY 11/18/20 06/03/21 History Zolpidem [Ambien] 10 mg PO HS 11/18/20 06/03/21 History amLODIPine [Norvasc] 5 mg PO DAILY 11/18/20 06/03/21 History lisinopriL [Zestril] 10 mg PO DAILY #30 tab 11/20/20 06/03/21 Rx Furosemide [Lasix] 20 mg PO DAILY 06/03/21 06/03/21 History Lacosamide [Vimpat] 50 mg PO BID 06/03/21 06/03/21 History traZODone HCL 50 mg PO HS 06/03/21 06/03/21 History Allergies Allergy/AdvReac Type Severity Reaction Status Date / Time Iodinated Contrast Media Allergy Unknown Verified 06/03/21 13:04 Penicillins Allergy Rash/Hives Verified 06/03/21 11:52 Sulfa (Sulfonamide Allergy Rash/Hives Verified 06/03/21 11:52 Antibiotics) atomoxetine HCl AdvReac Severe SYMPATHETIC Verified 06/03/21 13:04 [From Strattera] RESPONSE; DIARRHEA WAS ONE OF MANY REACTIONS. S topiramate [From Topamax] AdvReac Unknown 50 MG BID- Verified 06/03/21 11:52 SHE COULDNT COMPLETE SENTENCE duloxetine [From Cymbalta] AdvReac Hallucinati Verified 06/03/21 13:04 ons fluoxetine HCl [From Prozac] AdvReac Nausea Verified 06/03/21 13:04 metoclopramide HCl AdvReac dystonic Verified 06/03/21 13:04 [From Reglan] reaction, UNABLE TO FOCUS Physical Exam Vitals: Vital Signs Temp Pulse Resp BP Pulse Ox 06/03/21 15:00 72 18 140/75 95 06/03/21 12:52 72 18 133/77 98 06/03/21 11:46 97.0 F L 86 18 128/82 96 Intake and Output 06/03/21 06/03/21 06/03/21 06:59 14:59 22:59 Other: Weight 88.451 kg Results CBC & Chem 7: 06/03/21 12:29 06/03/21 12:29 Labs: Abnormal Lab Results - Last 24 Hours (Table) 06/03/21 06/03/21 06/03/21 Range/Units 12:29 12:29 14:45 WBC 21.9 H (3.8-10.6) k/uL RBC 3.77 L (3.80-5.40) m/uL MCV 110.6 H (80.0-100.0) fL Neutrophils # (Manual) 20.10 H (1.3-7.7) k/uL Macrocytosis Marked A Chloride 112 H (98-107) mmol/L Carbon Dioxide 18 L (22-30) mmol/L BUN 22 H (7-17) mg/dL Creatinine 1.33 H (0.52-1.04) mg/dL Alkaline Phosphatase 184 H (38-126) U/L Albumin 3.2 L (3.5-5.0) g/dL Urine Nitrite Positive H (Negative) Ur Leukocyte Esterase Trace H (Negative) Urine Bacteria Moderate H (None) /hpf Hyaline Casts 6 H (0-2) /lpf Urine Mucus Rare H (None) /hpf Urine Opiates Screen (NotDetected) U Benzodiazepines Scrn (NotDetected) 06/03/21 Range/Units 14:45 WBC (3.8-10.6) k/uL RBC (3.80-5.40) m/uL MCV (80.0-100.0) fL Neutrophils # (Manual) (1.3-7.7) k/uL Macrocytosis Chloride (98-107) mmol/L Carbon Dioxide (22-30) mmol/L BUN (7-17) mg/dL Creatinine (0.52-1.04) mg/dL Alkaline Phosphatase (38-126) U/L Albumin (3.5-5.0) g/dL Urine Nitrite (Negative) Ur Leukocyte Esterase (Negative) Urine Bacteria (None) /hpf Hyaline Casts (0-2) /lpf Urine Mucus (None) /hpf Urine Opiates Screen Detected H (NotDetected) U Benzodiazepines Scrn Detected H (NotDetected)
[2021-06-03] MEDS ORDERED: BENZOCAINE 20 % GEL 11.9 GM TUBE MM ONE (20:43)
[2021-06-03] MEDS: PANTOPRAZOLE 40 MG TABLET PO SCH (21:09)
[2021-06-03] MEDS: LACOSAMIDE 50 MG TABLET PO SCH (21:09)
[2021-06-03] MEDS: traZODone HCL 50 MG TAB PO SCH (21:09)
[2021-06-03] MEDS: HYDROcodone/APAP 7.5-325MG 1 EACH TAB PO PRN (21:34)
[2021-06-03] MEDS: DEXTROSE 5% IN WATER 1,000 ML with SODIUM BICARB (1 MEQ/ML) 150 ML IV SCH (21:35)
[2021-06-04] MEDS: CLINDAMYCIN 600 MG in DEXTROSE 5% IN WATER 50 ML IVPB SCH ×6 (00:13→16:40)
[2021-06-04] MEDS ORDERED: BENZOCAINE 20 % GEL 11.9 GM TUBE MM PRN (05:22)
[2021-06-04 06:20] LABS: African American GFR (CKD) 65 (>60 ml/min/1.73 sqM); Anion Gap 5 mmol/L; Blood Urea Nitrogen 17 mg/dL (7-17); Calcium 8.2 mg/dL (8.4-10.2); Carbon Dioxide 21 mmol/L (22-30); Chloride 109 mmol/L (98-107); Glucose 108 mg/dL (74-99); Non-African American GFR(CKD) 56 (>60 ml/min/1.73 sqM); Sodium 135 mmol/L (137-145)
[2021-06-04] MEDS: HYDROcodone/APAP 7.5-325MG 1 EACH TAB PO PRN ×3 (06:26→21:29)
[2021-06-04] MEDS: DEXTROSE 5% IN WATER 1,000 ML with SODIUM BICARB (1 MEQ/ML) 150 ML IV SCH ×3 (07:16→21:31)
[2021-06-04] MEDS ORDERED: NON FORMULARY DRUG (Vitamin B Complex [Vitamin B Complex] 1 EACH Capsule) PO SCH (09:00)
[2021-06-04] MEDS: METHYLPHENIDATE HCL 54 MG PO SCH (09:34)
[2021-06-04] MEDS: MULTIVITAMINS, THERA 1 EACH TAB PO SCH (09:35)
[2021-06-04] MEDS: PANTOPRAZOLE 40 MG TABLET PO SCH ×2 (09:35→21:30)
[2021-06-04] MEDS: LACOSAMIDE 50 MG TABLET PO SCH ×2 (09:36→21:30)
[2021-06-04] MEDS: ASCORBIC ACID 500 MG TAB PO SCH (09:36)
[2021-06-04] MEDS: PARoxetine 20 MG TAB PO SCH (09:36)
--- NOTE | 2021-06-04 12:30 | P.CONS ---
History of Present Illness - Chief Complaint Walking difficulty and lethargy - History of Present Illness I had the opportunity to see patient for inpatient rehab consultation with regard to walking difficulty. Patient admitted to [facility] June 03 with description of lethargy per . She reports multiple falls and does have some abrasion bridge of nose. Chest x-ray with left middle lobe shadow. Pelvic x-ray no active disease or fracture. Head CT with age-related and chronic change. C-spine CT negative. PT reports modified independent bed mobility and minimal assist for transfers and gait 24 feet with roller walker but ataxic and with poor standing balance. OT prescribed. Previous functional history as elicited patient: 61-year-old right-handed white female who is half-way 3 floor home with . works full-time and does cooking, laundry, driving. Patient reports that she will apply for disability. We'll assist for sponge bath and for dressing from . P reviously did not require assistive device for gait. PCP Dr. Kramer. Review of Systems Review of systems: As elicited from patient and gleaned from chart. Skin: Abrasions carlos dose. ENT: Denies sneezes or discharge. Eyes: Denies discharge or photophobia. Cardiac: Denies chest pain or palpitation. Pulmonary: Denies cough or shortness of breath. Breast: Denies discharge or lumps. Gastrointestinal: Denies nausea, emesis, constipation, diarrhea. Genitourinary: Denies discharge or frequency. Musculoskeletal: Denies muscle or bone aches. Neurologic: Denies motor or sensory change. Endocrine: Denies shakes or sweats. Oncology: Denies cancers. Dermatologic: Denies rash, itching, pruritus. ALLERGY/immunology: Denies sneezes, rashes. 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 History of Any Multi-Drug Resistant Organisms: None Reported Past Surgical History: Bariatric Surgery, Hernia Repair, Orthopedic Surgery, Tubal Ligation Additional Past Surgical History / Comment(s): gastric bypass, arthroscopic surgery bilateral knees with lateral ligament releases, umbilical hernia repair with mesh, PAIN CLINIC PROCEDURES, bilateral carpal tunnel surgery.Fx knee repair, R and L cataract surgery., detached retina Past Anesthesia/Blood Transfusion Reactions: Motion Sickness, Postoperative Nausea & Vomiting (PONV) Past Psychological History: Anxiety, Depression, Panic Disorder Smoking Status: Never smoker Past Alcohol Use History: Abuse, Daily Additional Past Alcohol Use History / Comment(s): pt states she drinks maybe a b ottle of wine a day but states her told her she drank a bottle of captain yesterday Past Drug Use History: None Reported - Past Family History Mother Family Medical History: Cancer Additional Family Medical History / Comment(s): BOWEL AND LIVER, Medications and Allergies Home Medications Medication Instructions Recorded Confirmed Type Baclofen [Lioresal] 20 mg PO TID PRN 08/26/16 06/03/21 History Ascorbic Acid [Vitamin C] 1,000 mg PO DAILY 07/31/20 06/03/21 History HYDROcodone/APAP 7.5-325MG [[place] 1 tab PO TID PRN 07/31/20 06/03/21 History 7.5-325] Multivitamins, Thera [Multivitamin 1 tab PO DAILY 07/31/20 06/03/21 History (formulary)] LORazepam [Ativan] 1 mg PO DAILY PRN 10/06/20 06/03/21 History Methylphenidate HCl [Concerta] 54 mg PO DAILY 10/06/20 06/03/21 History Omeprazole 20 mg PO BID 10/06/20 06/03/21 History Calcium Polycarbophil [Fibercon] 625 mg PO DAILY 11/18/20 06/03/21 History PARoxetine HCL [Paxil] 60 mg PO DAILY 11/18/20 06/03/21 History Vitamin B Complex 1 cap PO DAILY 11/18/20 06/03/21 History Zolpidem [Ambien] 10 mg PO HS 11/18/20 06/03/21 History amLODIPine [Norvasc] 5 mg PO DAILY 11/18/20 06/03/21 History lisinopriL [Zestril] 10 mg PO DAILY #30 tab 11/20/20 06/03/21 Rx Furosemide [Lasix] 20 mg PO DAILY 06/03/21 06/03/21 History Lacosamide [Vimpat] 50 mg PO BID 06/03/21 06/03/21 History traZODone HCL 50 mg PO HS 06/03/21 06/03/21 History Allergies Allergy/AdvReac Type Severity Reaction Status Date / Time Iodinated Contrast Media Allergy Unknown Verified 06/03/21 13:04 Penicillins Allergy Rash/Hives Verified 06/03/21 11:52 Sulfa (Sulfonamide Allergy Rash/Hives Verified 06/03/21 11:52 Antibiotics) atomoxetine HCl AdvReac Severe SYMPATHETIC Verified 06/03/21 13:04 [From Strattera] RESPONSE; DIARRHEA WAS ONE OF MANY REACTIONS. S topiramate [From Topamax] AdvReac Unknown 50 MG BID- Verified 06/03/21 11:52 SHE COULDNT COMPLETE SENTENCE duloxetine [From Cymbalta] AdvReac Hallucinati Verified 06/03/21 13:04 ons fluoxetine HCl [From Prozac] AdvReac Nausea Verified 06/03/21 13:04 metoclopramide HCl AdvReac dystonic Verified 06/03/21 13:04 [From Reglan] reaction, UNABLE TO FOCUS Physical Exam Vitals: Vital Signs Temp Pulse Pulse Resp BP BP Pulse Ox 06/04/21 07:13 98.1 F 109 H 115/72 95 06/04/21 02:00 99.1 F 107 H 17 113/71 98 06/03/21 20:00 98.3 F 93 17 122/71 95 06/03/21 19:00 100 18 121/52 95 06/03/21 15:00 72 18 140/75 95 06/03/21 12:52 72 18 133/77 98 Intake and Output 06/03/21 06/04/21 06/04/21 22:59 06:59 14:59 Other: # Voids 4 # Bowel Movements 4 Weight 88.451 kg Skin: Good color, texture, turgor. General: Medium build and comfortable appearance. Head: Normocephalic, atraumatic. Eyes: Symmetric. Pupils equal round. Ears: Symmetric. Hearing within normal limits. Mouth: Clear. Neck: Supple. Carotid without bruit. Cardiac: Regular rate and rhythm. Lungs: Clear anteriorly and posteriorly. Abdomen: Soft active nontender. Extremities: Normal tone. Neurological: Mental status: Alert, cooperative, pleasant. He has difficulty in history some biographical questions. Cranial nerves: Symmetric facial tone and trapezius. Motor: Active movement all 4 limbs. Sensation: Intact throughout. DTRs: Symmetric and equal throughout. Mobility: Did not attempt to stand on my own is sitting in Arin chair and trying the lunch. Results CBC & Chem 7: 06/03/21 12:29 06/04/21 05:33 Labs: Abnormal Lab Results - Last 24 Hours (Table) 06/03/21 06/03/21 06/03/21 Range/Units 12:29 12:29 14:45 WBC 21.9 H (3.8-10.6) k/uL RBC 3.77 L (3.80-5.40) m/uL MCV 110.6 H (80.0-100.0) fL Neutrophils # (Manual) 20.10 H (1.3-7.7) k/uL Macrocytosis Marked A Sodium (137-145) mmol/L Chloride 112 H (98-107) mmol/L Carbon Dioxide 18 L (22-30) mmol/L BUN 22 H (7-17) mg/dL Creatinine 1.33 H (0.52-1.04) mg/dL Glucose (74-99) mg/dL Calcium (8.4-10.2) mg/dL Alkaline Phosphatase 184 H (38-126) U/L Albumin 3.2 L (3.5-5.0) g/dL Urine Nitrite Positive H (Negative) Ur Leukocyte Esterase Trace H (Negative) Urine Bacteria Moderate H (None) /hpf Hyaline Casts 6 H (0-2) /lpf Urine Mucus Rare H (None) /hpf Urine Opiates Screen (NotDetected) U Benzodiazepines Scrn (NotDetected) 06/03/21 06/04/21 Range/Units 14:45 05:33 WBC (3.8-10.6) k/uL RBC (3.80-5.40) m/uL MCV (80.0-100.0) fL Neutrophils # (Manual) (1.3-7.7) k/uL Macrocytosis Sodium 135 L (137-145) mmol/L Chloride 109 H (98-107) mmol/L Carbon Dioxide 21 L (22-30) mmol/L BUN (7-17) mg/dL Creatinine 1.08 H (0.52-1.04) mg/dL Glucose 108 H (74-99) mg/dL Calcium 8.2 L (8.4-10.2) mg/dL Alkaline Phosphatase (38-126) U/L Albumin (3.5-5.0) g/dL Urine Nitrite (Negative) Ur Leukocyte Esterase (Negative) Urine Bacteria (None) /hpf Hyaline Casts (0-2) /lpf Urine Mucus (None) /hpf Urine Opiates Screen Detected H (NotDetected) U Benzodiazepines Scrn Detected H (NotDetected) Assessment and Plan (1) Altered mental status Current Visit: Yes Status: Acute Code(s): R41.82 - ALTERED MENTAL STATUS, UNSPECIFIED SNOMED Code(s): 454002164 (2) Fall Current Visit: Yes Status: Acute Code(s): W19.XXXA - UNSPECIFIED FALL, INITIAL ENCOUNTER SNOMED Code(s): 3566708 (3) Lethargy Current Visit: Yes Status: Acute Code(s): R53.83 - OTHER FATIGUE SNOMED Code(s): 383426225 (4) Alcohol withdrawal Current Visit: No Status: Acute Code(s): F10.239 - ALCOHOL DEPENDENCE WITH WITHDRAWAL, UNSPECIFIED SNOMED Code(s): 330081854 (5) Arthropathy of cervical facet joint Current Visit: No Status: Acute Code(s): M46.92 - UNSPECIFIED INFLAMMATORY SPONDYLOPATHY, CERVICAL REGION SNOMED Code(s): 293949191 Plan: Comments and plan: At this time PT ongoing and OT prescribed. Inpatient rehab would require goals for patient to return to home and to determine if these are realistic IPR goals.
--- NOTE | 2021-06-04 16:01 | P.PN ---
Progress Note - Text Progress Note Date: 06/04/21 Chief Complaint: Weak History of presenting complaint: This is a 60-year-old patient, follows with Dr. Kramer. 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 Chronic back and neck pain for which she follows with pain management with Dr. Olivo. drinking alcohol for a long time. Patient is brought into the ER by her . He noticed that patient was not even able to stand becoming very weak. Patient currently is been drinking one or 2 drinks of coke rum daily. Normally gets around the house, but holding on to furniture. Doesn't really eat much. When she goes out of the house she has to be supported by. Has been feeling weak diet. No fever no chills. No cough. Rather sleepy in the ER. Per the patient does sleep quite a bit at home. She also has infected tooth that is due for extraction. Admitted with acute kidney injury prerenal/ATN, acute metabolic encephalopathy, alcoholic myopathy, slight abnormalities, metabolic acidosis. Started on IV clindamycin for tooth abscess, IV bicarbonate drip. June 04: Sitting up in a chair. More awake. Discussed with the patient. Getting IV clindamycin. On bicarbonate drip. Tired. Did 24 feet with a rolling walker. Eating about 50-75%. Consult dietitian Active Medications Hydrocodone Bitart/Acetaminophen (Hydrocodone/Apap 7.5-325mg 1 Each Tab) 1 each PO TID PRN PRN Reason: Pain Last Admin: 06/04/21 14:10 Dose: 1 each Documented by: Ascorbic Acid (Ascorbic Acid 500 Mg Tab) 1,000 mg PO DAILY [facility] Last Admin: 06/04/21 09:36 Dose: 1,000 mg Documented by: Benzocaine (Benzocaine 20 % Gel 11.9 Gm Tube) 1 applic MM QID PRN PRN Reason: Toothache Clindamycin Phosphate 600 mg/ (Dextrose/Water) 54 mls @ 50 mls/hr IVPB Q8H SUPA; Protocol Last Admin: 06/04/21 10:58 Dose: 50 mls/hr Documented by: Sodium Bicarbonate 150 ml/ (Dextrose/Water) 1,150 mls @ 130 mls/hr IV .Q8H51M [facility] Last Admin: 06/04/21 10:58 Dose: 130 mls/hr Documented by: Lacosamide (Lacosamide 50 Mg Tablet) 50 mg PO BID [facility] Last Admin: 06/04/21 09:36 Dose: 50 mg Documented by: Multivitamins (Multivitamins, Thera 1 Each Tab) 1 each PO DAILY [facility] Last Admin: 06/04/21 09:35 Dose: 1 each Documented by: Naloxone HCl (Naloxone 0.4 Mg/Ml 1 Ml Vial) 0.2 mg IV Q2M PRN PRN Reason: Opioid Reversal Patient's Own ( Methylphenidate Hcl Concerta 54 Mg Tab .Er.24) 54 mg PO DAILY [facility] Last Admin: 06/04/21 09:34 Dose: Not Given Documented by: Ondansetron HCl (Ondansetron 4 Mg/2 Ml Vial) 4 mg IVP Q8HR PRN PRN Reason: Nausea And Vomiting Pantoprazole Sodium (Pantoprazole 40 Mg Tablet) 40 mg PO BID [facility] Last Admin: 06/04/21 09:35 Dose: 40 mg Documented by: Paroxetine HCl (Paroxetine 20 Mg Tab) 60 mg PO DAILY [facility] Last Admin: 06/04/21 09:36 Dose: 60 mg Documented by: Trazodone HCl (Trazodone Hcl 50 Mg Tab) 50 mg PO HS [facility] Last Admin: 06/03/21 21:09 Dose: 50 mg Documented by: Zolpidem Tartrate (Zolpidem 5 Mg Tab) 2.5 mg PO HS PRN PRN Reason: Insomnia Last Admin: 06/03/21 23:19 Dose: 2.5 mg Documented by: Past medical history to include: Obstructive sleep apnea, anxiety, GERD, insomnia, hypertension, osteoarthritis, head injury 2007 with some residual short-term memory loss, positive TB skin test with INH treatment 2002, chronic back and neck pain, alcohol related seizure 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 Has been drinking rum Capt. Goodman. Lives with her Physical examination: VITAL SIGNS: 99.3, 99, 16, 134/74, 95% room air GENERAL: Up in a recliner, more awake. EYES: Pupils equal. Conjunctiva normal. HEENT: External appearance of nose and ears normal, oral cavity grossly normal. NECK: JVD not raised; masses not palpable. HEART: First and second heart sounds are normal; no edema. LUNGS: Respiratory rate normal; clear to auscultation. ABDOMEN: Soft, nontender, liver spleen not palpable, no masses palpable. PSYCH: Answering questions appropriately.l. MUSCULOSKELETAL:No Clubbing/cyanosis;muscles-grossly intact NEUROLOGICAL: Cranial nerves grossly intact; no facial asymmetry, does move her limbs. INVESTIGATIONS, reviewed in the clinical context: June 04: Sodium 135 potassium 4 white count 21 BUN 17 creatinine 1.08 White count 21.9 hemoglobin 13.1 and platelets 359 potassium 4.7 sodium 138 bicarb 18 BUN 22 creatinine 1.33 albumin 3.2 Albumin 3.2 TSH 1.9 UA positive for leukoesterase/bacteria Urine drug screen positive for opiates, benzodiazepine Serum alcohol less than 10 EKG tracing personally reviewed by me-normal sinus rhythm. Rate 76 Chest x-ray film personally reviewed by me-lungs clear Head/cervical spine/pelvic x-ray: Negative for fracture Assessment and plan: -Acute metabolic encephalopathy from renal failure. Also contribution from patient being on scheduled baclofen and 10 mg dose of Ambien.: Improving -Acute kidney injury likely prerenal from poor oral intake: Slow to respond IV fluids -Acute Metabolic acidosis from renal failure: Improving Sodium bicarbonate drip - Seizure activity secondary to alcohol. [id number] mg twice a day -Alcohol use disorder Thiamine. - CIWA scale. -GERD Continue Pepcid -Essential hypertension, Hold off antihypertensives -Chronic insomnia Trazodone 50 mg daily at bedtime. Ambien 2.5 mg daily at bedtime when necessary -Chronic constipation fiber -Chronic anxiety disorder Paxil 60 mg daily -Alcoholic myopathy PTOT -Mild protein calorie malnutrition from poor oral intake Add ensure. Consult dietitian Sodium bicarbonate drip with D5W. Continue to hold antihypertensive. Consult dietitian. PTOT
[2021-06-04] MEDS: traZODone HCL 50 MG TAB PO SCH (21:30)
[2021-06-05] MEDS: CLINDAMYCIN 600 MG in DEXTROSE 5% IN WATER 50 ML IVPB SCH ×4 (01:08→09:30)
[2021-06-05] MEDS: DEXTROSE 5% IN WATER 1,000 ML with SODIUM BICARB (1 MEQ/ML) 150 ML IV SCH ×2 (04:00→14:23)
[2021-06-05 06:14] LABS: Basophils % (A) 0 %; Eosinophils # (A) 0.2 k/uL (0-0.7); Eosinophils % (A) 1 %; HCT 32.6 % (34.0-46.0); HGB 10.5 gm/dL (11.4-16.0); Hypochromasia Slight; Lymphocytes # (A) 2.4 k/uL (1.0-4.8); Lymphocytes % (A) 19 %; MCH 34.6 pg (25.0-35.0); MCHC 32.1 g/dL (31.0-37.0); Macrocytosis Moderate; Mean Platelet Volume 7.3; Monocytes # (A) 0.7 k/uL (0-1.0); Monocytes % (A) 6 %; Neutrophils # (A) 8.9 k/uL (1.3-7.7); Neutrophils % (A) 71 %; Platelet Count 328 k/uL (150-450); RBC 3.02 m/uL (3.80-5.40); RDW 13.8 % (11.5-15.5); WBC 12.5 k/uL (3.8-10.6)
[2021-06-05 06:26] LABS: ALT 6 U/L (4-34); AST 22 U/L (14-36); African American GFR (CKD) 86 (>60 ml/min/1.73 sqM); Albumin 2.6 g/dL (3.5-5.0); Albumin/Globulin Ratio 0.9; Alkaline Phosphatase 134 U/L (38-126); Anion Gap 0 mmol/L; Blood Urea Nitrogen 13 mg/dL (7-17); Calcium 8.4 mg/dL (8.4-10.2); Carbon Dioxide 32 mmol/L (22-30); Chloride 103 mmol/L (98-107); Glucose 106 mg/dL (74-99); Non-African American GFR(CKD) 74 (>60 ml/min/1.73 sqM); Potassium 4.7 mmol/L (3.5-5.1); Sodium 135 mmol/L (137-145); Total Bilirubin 0.4 mg/dL (0.2-1.3); Total Protein 5.6 g/dL (6.3-8.2)
[2021-06-05] MEDS: METHYLPHENIDATE HCL 54 MG PO SCH (08:57)
[2021-06-05] MEDS: LACOSAMIDE 50 MG TABLET PO SCH (09:05)
[2021-06-05] MEDS: MULTIVITAMINS, THERA 1 EACH TAB PO SCH (09:05)
[2021-06-05] MEDS: ASCORBIC ACID 500 MG TAB PO SCH (09:05)
[2021-06-05] MEDS: PARoxetine 20 MG TAB PO SCH (09:05)
[2021-06-05] MEDS: PANTOPRAZOLE 40 MG TABLET PO SCH (09:05)
[2021-06-05 13:31] VITALS: BMI 32.4
--- NOTE | 2021-06-05 14:11 | P.DS ---
Providers Date of admission: 06/03/21 15:00 Expected date of discharge: 06/05/21 Attending physician: Tera Campo Consults: 06/04/21 10:54 Consult Physician Routine Consulting Provider: Gaurav Calix Consult Reason/Comments: [facility] rehab Do you want consulting provider notified?: Yes Primary care physician: [facility] Course: Chief Complaint: Weak History of presenting complaint: This is a 60-year-old patient, follows with Dr. Kramer. 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 Chronic back and neck pain for which she follows with pain management with Dr. Olivo. drinking alcohol for a long time. Patient is brought into the ER by her . He noticed that patient was not even able to stand becoming very weak. Patient currently is been drinking one or 2 drinks of coke rum daily. Normally gets around the house, but holding on to furniture. Doesn't really eat much. When she goes out of the house she has to be supported by. Has been feeling weak diet. No fever no chills. No cough. Rather sleepy in the ER. Per the patient does sleep quite a bit at home. She also has infected tooth that is due for extraction. Admitted with acute kidney injury prerenal/ATN, acute metabolic encephalopathy, alcoholic myopathy, slight abnormalities, metabolic acidosis. Started on IV clindamycin for tooth abscess, IV bicarbonate drip. June 04: Sitting up in a chair. More awake. Discussed with the patient. Getting IV clindamycin. On bicarbonate drip. Tired. Did 24 feet with a rolling walker. Eating about 50-75%. Consult dietitian June 05: Patient bicarbonate has corrected. Drip being discontinued. manager beauty discussed with the family patient will return home. We will give another 5 days of by mouth clindamycin. For tooth abscess. Will follow-up with a dentist. Patient's antihypertensives including Norvasc and Zestril and Lasix are all being discontinued. She may need to follow blood pressure and may require and hypotensive down the road. Also dose of Ambien cutback. To be used only when necessary. Patient told to check into alcohol rehab place. Resources given. 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 Has been drinking rum Capt. Goodman. Lives with her Physical examination: VITAL SIGNS: 99.3, 105, 16, 120/74, 92% room air GENERAL: Up in a chair, awake, comfortable EYES: Pupils equal. Conjunctiva normal. HEENT: External appearance of nose and ears normal, oral cavity grossly normal. NECK: JVD not raised; masses not palpable. HEART: First and second heart sounds are normal; no edema. LUNGS: Respiratory rate normal; clear to auscultation. ABDOMEN: Soft, nontender, liver spleen not palpable, no masses palpable. PSYCH: Answering questions appropriately.l. MUSCULOSKELETAL:No Clubbing/cyanosis;muscles-grossly intact NEUROLOGICAL: Cranial nerves grossly intact; no facial asymmetry, does move her limbs. INVESTIGATIONS, reviewed in the clinical context: June 05: White count 12.5 when 10.5 potassium 4.7 crit 0.86 White count 21.9 hemoglobin 13.1 and platelets 359 potassium 4.7 sodium 138 bicarb 18 BUN 22 creatinine 1.33 albumin 3.2 Albumin 3.2 TSH 1.9 UA positive for leukoesterase/bacteria Urine drug screen positive for opiates, benzodiazepine Serum alcohol less than 10 EKG tracing personally reviewed by me-normal sinus rhythm. Rate 76 Chest x-ray film personally reviewed by me-lungs clear Head/cervical spine/pelvic x-ray: Negative for fracture Assessment and plan: -Acute metabolic encephalopathy from renal failure. Also contribution from patient being on scheduled baclofen and 10 mg dose of Ambien.: Baclofen changed to when necessary. Ambien dose cutback to 5 mg daily at bedtime when necessary.: Improved -Acute kidney injury likely prerenal from poor oral intake: Improved IV fluids -Acute Metabolic acidosis from renal failure: Improved -Tooth abscess/infection 5 more days of clindamycin. Follow-up with a dentist - Seizure activity secondary to alcohol. mg twice a day -Alcohol use disorder Thiamine. - CIWA scale. -GERD Continue Pepcid -Essential hypertension, diet controlled Amlodipine and lisinopril discontinued -Chronic insomnia Trazodone 50 mg daily at bedtime. Ambien 5 mg daily at bedtime when necessary -Chronic constipation fiber -Chronic anxiety disorder Paxil 60 mg daily -Alcoholic myopathy PTOT -Mild protein calorie malnutrition from poor oral intake Add ensure. Consult dietitian Disposition: Home Plan - Discharge Summary Discharge Rx Participant: Yes New Discharge Prescriptions: New clindamycin HCL [Cleocin] 300 mg PO Q6HR #20 cap Continue Baclofen [Lioresal] 20 mg PO TID PRN PRN Reason: Muscle Spasm HYDROcodone/APAP 7.5-325MG [[place] 7.5-325] 1 tab PO TID PRN PRN Reason: Pain Methylphenidate HCl [Concerta] 54 mg PO DAILY LORazepam [Ativan] 1 mg PO DAILY PRN PRN Reason: Anxiety Vitamin B Complex 1 cap PO DAILY traZODone HCL 50 mg PO HS Lacosamide [Vimpat] 50 mg PO BID Multivitamins, Thera [Multivitamin (formulary)] 1 tab PO DAILY Ascorbic Acid [Vitamin C] 1,000 mg PO DAILY Omeprazole 20 mg PO BID Calcium Polycarbophil [Fibercon] 625 mg PO DAILY PARoxetine HCL [Paxil] 60 mg PO DAILY Changed Zolpidem [Ambien] 5 mg PO HS PRN #0 PRN Reason: Insomnia Discontinued amLODIPine [Norvasc] 5 mg PO DAILY Furosemide [Lasix] 20 mg PO DAILY lisinopriL [Zestril] 10 mg PO DAILY #30 tab Discharge Medication List Baclofen [Lioresal] 20 mg PO TID PRN 08/26/16 [History] Ascorbic Acid [Vitamin C] 1,000 mg PO DAILY 07/31/20 [History] HYDROcodone/APAP 7.5-325MG [[place] 7.5-325] 1 tab PO TID PRN 07/31/20 [History] Multivitamins, Thera [Multivitamin (formulary)] 1 tab PO DAILY 07/31/20 [History] LORazepam [Ativan] 1 mg PO DAILY PRN 10/06/20 [History] Methylphenidate HCl [Concerta] 54 mg PO DAILY 10/06/20 [History] Omeprazole 20 mg PO BID 10/06/20 [History] Calcium Polycarbophil [Fibercon] 625 mg PO DAILY 11/18/20 [History] PARoxetine HCL [Paxil] 60 mg PO DAILY 11/18/20 [History] Vitamin B Complex 1 cap PO DAILY 11/18/20 [History] Lacosamide [Vimpat] 50 mg PO BID 06/03/21 [History] traZODone HCL 50 mg PO HS 06/03/21 [History] Zolpidem [Ambien] 5 mg PO HS PRN #0 06/05/21 [Rx] clindamycin HCL [Cleocin] 300 mg PO Q6HR #20 cap 06/05/21 [Rx] Follow up Appointment(s)/Referral(s): Cb Kramer MD [Primary Care Provider] - 1-2 days
[2021-06-05 14:37] VITALS: BP 119/76; PULSE 103; RESP 18; TEMP 98.7
== END 2021-06-05 16:33 | disposition home or self-care (01) | DRG 682 ==
LOC: EC 11:45 → 4SSUR 15:00
PROVIDERS: ADMIT Hospitalist; ATTEND Hospitalist
DX: N17.0 Acute kidney failure with tubular necrosis (principal); G93.41 Metabolic encephalopathy; E44.1 Mild protein-calorie malnutrition; E87.2 Acidosis; G72.1 Alcoholic myopathy; F10.139 Alcohol abuse with withdrawal, unspecified; R53.83 Other fatigue; Z68.32 Body mass index [BMI] 32.0-32.9, adult; F32.A Depression, unspecified; F41.0 Panic disorder [episodic paroxysmal anxiety]; F51.04 Psychophysiologic insomnia; G47.33 Obstructive sleep apnea (adult) (pediatric); G89.29 Other chronic pain; I10 Essential (primary) hypertension; K04.7 Periapical abscess without sinus; K21.9 Gastro-esophageal reflux disease without esophagitis; K59.09 Other constipation; M47.812 Spondylosis without myelopathy or radiculopathy, cervical region; R29.6 Repeated falls; Z79.899 Other long term (current) drug therapy; Z86.11 Personal history of tuberculosis; S06.890S Other specified intracranial injury without loss of consciousness, sequela; R41.3 Other amnesia; Z98.42 Cataract extraction status, left eye; Z98.84 Bariatric surgery status
CPT/HCPCS: 36415; 70450; 71045; 72125; 72170; 80048; 80053; 80306; 80320; 81001; 83605; 83735; 84443; 84484; 85025; 85610; 85730; 87040; 93005; 96361; 96365; 96375; 99285

== ENCOUNTER 2021-06-11 18:24 | Emergency (ER) | payer BC ==
[2021-06-11 20:48] LABS: Basophils # (A) 0.1 k/uL (0-0.2); Basophils % (A) 0 %; Eosinophils # (A) 0.5 k/uL (0-0.7); Eosinophils % (A) 4 %; HCT 33.1 % (34.0-46.0); HGB 10.3 gm/dL (11.4-16.0); Hypochromasia Slight; Lymphocytes # (A) 2.3 k/uL (1.0-4.8); Lymphocytes % (A) 21 %; MCH 34.1 pg (25.0-35.0); MCHC 31.1 g/dL (31.0-37.0); MCV 109.7 fL (80.0-100.0); Macrocytosis Marked; Mean Platelet Volume 7.4; Monocytes # (A) 0.5 k/uL (0-1.0); Monocytes % (A) 4 %; Neutrophils # (A) 7.5 k/uL (1.3-7.7); Neutrophils % (A) 69 %; Platelet Count 480 k/uL (150-450); RBC 3.02 m/uL (3.80-5.40); RDW 13.8 % (11.5-15.5); WBC 10.9 k/uL (3.8-10.6)
[2021-06-11 20:53] LABS: Albumin 3.2 g/dL (3.5-5.0); Calcium 8.4 mg/dL (8.4-10.2); Potassium 5.3 mmol/L (3.5-5.1); Total Bilirubin 0.8 mg/dL (0.2-1.3); Total Protein 6.7 g/dL (6.3-8.2)
[2021-06-11 21:14] LABS: INR 0.8 (<1.2); Prothrombin Time 9.5 sec (9.0-12.0)
[2021-06-11 21:15] LABS: Partial Thromboplastin Time 18.8 sec (22.0-30.0)
--- NOTE | 2021-06-11 21:44 | CT ---
EXAMINATION TYPE: CT facial bones wo con DATE OF EXAM: 06/11/2021 COMPARISON: None HISTORY: RT mandibular pain CT DLP: 592.3 mGycm Automated exposure control for dose reduction was used. Images obtained from the bottom of the mandible to the top of the frontal sinuses without contrast. The mandibular ring is intact. Temporomandibular joints are intact. Dramatic arches appear normal. Ma xilla is intact. There is normal aeration of the maxillary sinuses. Nasal bone is intact. Orbital mar gins are intact. There is no evidence of orbital blowout fracture. There is no retro-orbital mass. Sk ull base is intact. There is normal aeration of the mastoid sinuses. There is normal aeration of the paranasal sinuses. IMPRESSION: Negative CT scan of the facial bones. No fracture. No evidence of mandible fracture.
[2021-06-11] MEDS ORDERED: MORPHINE SULFATE 4 MG/ML SYRINGE IM STA (22:05)
--- NOTE | 2021-06-11 22:10 | ED ---
General Adult HPI - General Chief complaint: ENT Stated complaint: Facial issues Time Seen by Provider: 06/11/21 20:09 Source: patient, RN notes reviewed, old records reviewed Mode of arrival: wheelchair Limitations: no limitations - History of Present Illness Initial comments: 60-year-old female with right-sided jaw pain and tooth pain. Symptoms have been present for the past several weeks. She's been on oral antibiotics. She had seen an oral surgeon today who performed x-ray and was concerned for cortical defects within the right side of her mandible. I do not have this imaging available for review and the patient did not bring any indication of the findings on x-ray. She has not had fever. She had a recent admission with confusion and altered mental status which has resolved. She's been doing well otherwise since the time of discharge. She's been on clindamycin and is currently taking clindamycin. No fevers. No difficulty swallowing. - Related Data Home Medications Medication Instructions Recorded Confirmed Baclofen [Lioresal] 20 mg PO TID PRN 08/26/16 06/11/21 Ascorbic Acid [Vitamin C] 1,000 mg PO DAILY 07/31/20 06/11/21 HYDROcodone/APAP 7.5-325MG [[place] 1 tab PO TID PRN 07/31/20 06/11/21 7.5-325] Multivitamins, Thera [Multivitamin 1 tab PO DAILY 07/31/20 06/11/21 (formulary)] LORazepam [Ativan] 1 mg PO DAILY PRN 10/06/20 06/11/21 Methylphenidate HCl [Concerta] 54 mg PO DAILY 10/06/20 06/11/21 Omeprazole 20 mg PO BID 10/06/20 06/11/21 Calcium Polycarbophil [Fibercon] 625 mg PO DAILY 11/18/20 06/11/21 PARoxetine HCL [Paxil] 60 mg PO DAILY 11/18/20 06/11/21 Vitamin B Complex 1 cap PO DAILY 11/18/20 06/11/21 Lacosamide [Vimpat] 50 mg PO BID 06/03/21 06/11/21 traZODone HCL 50 mg PO HS 06/03/21 06/11/21 Previous Rx's Medication Instructions Recorded Zolpidem [Ambien] 5 mg PO HS PRN #0 06/05/21 Allergies Allergy/AdvReac Type Severity Reaction Status Date / Time Iodinated Contrast Media Allergy Unknown Verified 06/11/21 21:51 Penicillins Allergy Rash/Hives Verified 06/11/21 21:51 Sulfa (Sulfonamide Allergy Rash/Hives Verified 06/11/21 21:51 Antibiotics) atomoxetine HCl AdvReac Severe SYMPATHETIC Verified 06/11/21 21:51 [From Strattera] RESPONSE; DIARRHEA WAS ONE OF MANY REACTIONS. S topiramate [From Topamax] AdvReac Unknown 50 MG BID- Verified 06/11/21 21:51 SHE COULDNT COMPLETE SENTENCE duloxetine [From Cymbalta] AdvReac Hallucinati Verified 06/11/21 21:51 ons fluoxetine HCl [From Prozac] AdvReac Nausea Verified 06/11/21 21:51 metoclopramide HCl AdvReac dystonic Verified 06/11/21 21:51 [From Reglan] reaction, UNABLE TO FOCUS Review of Systems ROS Statement: Those systems with pertinent positive or pertinent negative responses have been documented in the HPI. ROS Other: All systems not noted in ROS Statement are negative. 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 History of Any Multi-Drug Resistant Organisms: None Reported Past Surgical History: Bariatric Surgery, Hernia Repair, Orthopedic Surgery, Tubal Ligation Additional Past Surgical History / Comment(s): gastric bypass, arthroscopic surgery bilateral knees with lateral ligament releases, umbilical hernia repair with mesh, PAIN CLINIC PROCEDURES, bilateral carpal tunnel surgery.Fx knee repair, R and L cataract surgery., detached retina Past Anesthesia/Blood Transfusion Reactions: Motion Sickness, Postoperative Nausea & Vomiting (PONV) Past Psychological History: Anxiety, Depression, Panic Disorder Smoking Status: Never smoker Past Alcohol Use History: Abuse, Daily Past Drug Use History: None Reported - Past Family History Mother Family Medical History: Cancer Additional Family Medical History / Comment(s): BOWEL AND LIVER, General Exam Limitations: no limitations General appearance: alert, in no apparent distress Head exam: Present: atraumatic, normocephalic Eye exam: Present: normal appearance, PERRL ENT exam: Present: normal oropharynx, other (Tenderness along the right mandible and tenderness to the inferior right molars. There is no induration or swelling. There is no submandibular swelling.) Respiratory exam: Present: normal lung sounds bilaterally. Absent: respiratory distress, wheezes Cardiovascular Exam: Present: regular rate, normal rhythm GI/Abdominal exam: Present: soft. Absent: distended, tenderness, guarding Extremities exam: Present: normal inspection, normal capillary refill. Absent: pedal edema Course Vital Signs 06/11/21 19:43 Temperature 98.9 F Pulse Rate 74 Respiratory 20 Rate Blood Pressure 113/74 O2 Sat by Pulse 97 Oximetry Medical Decision Making - Medical Decision Making CT performed which does show some cortical thickening along the right mandible. There is no fluid collection. No mass appreciated. No acute abnormality seen on CT. I do feel this patient will require further evaluation. I suggested that she follow-up with oral surgery in [facility]. She should continue her clindamycin. Additionally the patient should follow-up with her primary care physician regarding the continuity of care of this abnormal finding by the oral surgeon on x-ray. She may require further testing or further imaging. - Lab Data Result diagrams: 06/11/21 20:25 06/11/21 20:25 Lab Results 06/11/21 06/11/21 06/11/21 Range/Units 20:25 20:25 20:25 WBC 10.9 H (3.8-10.6) k/uL RBC 3.02 L (3.80-5.40) m/uL Hgb 10.3 L (11.4-16.0) gm/dL Hct 33.1 L (34.0-46.0) % MCV 109.7 H (80.0-100.0) fL MCH 34.1 (25.0-35.0) pg MCHC 31.1 (31.0-37.0) g/dL RDW 13.8 (11.5-15.5) % Plt Count 480 H (150-450) k/uL MPV 7.4 Neutrophils % 69 % Lymphocytes % 21 % Monocytes % 4 % Eosinophils % 4 % Basophils % 0 % Neutrophils # 7.5 (1.3-7.7) k/uL Lymphocytes # 2.3 (1.0-4.8) k/uL Monocytes # 0.5 (0-1.0) k/uL Eosinophils # 0.5 (0-0.7) k/uL Basophils # 0.1 (0-0.2) k/uL Hypochromasia Slight Macrocytosis Marked A PT 9.5 (9.0-12.0) sec INR 0.8 (<1.2) APTT 18.8 L (22.0-30.0) sec Sodium 135 L (137-145) mmol/L Potassium 5.3 H (3.5-5.1) mmol/L Chloride 113 H (98-107) mmol/L Carbon Dioxide 15 L (22-30) mmol/L Anion Gap 7 mmol/L BUN 22 H (7-17) mg/dL Creatinine 1.14 H (0.52-1.04) mg/dL Est GFR (CKD-EPI)AfAm 61 (>60 ml/min/1.73 sqM) Est GFR (CKD-EPI)NonAf 53 (>60 ml/min/1.73 sqM) Glucose 99 (74-99) mg/dL Calcium 8.4 (8.4-10.2) mg/dL Total Bilirubin 0.8 (0.2-1.3) mg/dL AST 39 H (14-36) U/L ALT 8 (4-34) U/L Alkaline Phosphatase 128 H (38-126) U/L Total Protein 6.7 (6.3-8.2) g/dL Albumin 3.2 L (3.5-5.0) g/dL Disposition Clinical Impression: Jaw pain, Pain, dental Disposition: HOME SELF-CARE Condition: Fair Instructions (If sedation given, give patient instructions): Toothache (ED) Is patient prescribed a controlled substance at d/c from ED?: No Referrals: Cb Kramer MD [Primary Care Provider] - 1-2 days Daljit Interiano DDS [STAFF PHYSICIAN] - 1-2 days Time of Disposition: 22:10
[2021-06-11 22:20] VITALS: BP 114/81; PULSE 69; RESP 18; TEMP 97.9
== END 2021-06-11 22:20 | disposition home or self-care (01) ==
LOC: EC 18:24
DX: R68.84 Jaw pain (principal); K21.9 Gastro-esophageal reflux disease without esophagitis; I10 Essential (primary) hypertension; M19.90 Unspecified osteoarthritis, unspecified site; F41.9 Anxiety disorder, unspecified; F32.A Depression, unspecified; Z88.0 Allergy status to penicillin; Z88.1 Allergy status to other antibiotic agents; Z88.2 Allergy status to sulfonamides; Z98.84 Bariatric surgery status; Z98.51 Tubal ligation status
CPT/HCPCS: 99284; 96372; 36415; 80053; 85025; 85610; 85730; 70486; J2270